=== PATIENT | female | born 1965 | race Caucasian/White ===

== ENCOUNTER → 2018-06-01 11:45 | Outpatient (CLI) | payer OTHER, SELFPAY ==
--- NOTE | 2018-06-01 11:52 | CT_ITS ---
We are attempting to reach Diomedes Gould MD to discuss findings. An addendum with communication details will be sent when the communication is complete. STUDY: CT BRAIN WITHOUT CONTRAST REASON FOR EXAM: Female, 52 years old. Delirium. Altered mental status. Fell 04/2018. RADIATION DOSAGE (If Supplied By Facility): CTDIvol = ( 44.99 ) mGy, DLP = ( 829.85 ) mGycm TECHNIQUE: Transaxial CT imaging of the brain was performed without administration of intravenous contrast material. Coronal and sagittal reconstructions were performed. Individualized dose optimization techniques were used for this CT. COMPARISON: None. FINDINGS: Normal soft tissue structures. Normal calvarium. Mixed hyper and hypodense subdural hematoma overlying the left cerebral hemisphere measuring approximately 2.1 cm in thickness. This is causing 9 mm xbad-um-grlme midline shift. There is minimal left-sided downward transtentorial uncal herniation. Normal ventricular size. Normal white matter tracts of the cerebral hemispheres. Normal basal ganglia and thalami. Normal brainstem. Normal cerebellum. No other areas of intracranial bleeding. There are no findings of an acute ischemic infarction. Normal visualized paranasal sinuses. CT/Brain/Head without Contrast IMPRESSION: 2.1 cm thick mixed hyperdense and hypodense subdural hematoma overlying the left cerebral hemisphere causing 9 mm fwuu-[id number]-[id number] midline shift and minimal left-sided downward transtentorial uncal herniation. Electronically Signed: Dung Mao MD at 12:15 EST , Service support ,
== END ==
PROVIDERS: Family Provider Family Medicine Geriatric Medicine; PCP Family Medicine Geriatric Medicine; Referring Provider Family Medicine Geriatric Medicine; Visit Provider Family Medicine Geriatric Medicine
DX: F05 Delirium due to known physiological condition (principal)
CPT/HCPCS: 70450

== ENCOUNTER 2018-06-01 12:05 | Emergency (ER) | payer OTHER, SELFPAY ==
[2018-06-01 12:06] VITALS: BP 187/109; PULSE 121; RESP 16; TEMP 37.2; O2SAT 100; BMI 28.5
--- NOTE | 2018-06-01 12:26 | ED.RN ---
PT REPORTS ABOUT 2 WEEKS AGO SX STARTED NOTIFICING SHE KNEW WHAT SHE WANTED TO DO BUT COULD DO IT WITH HER HAND COORDINATION.
--- NOTE | 2018-06-01 12:28 | RAD_ITS ---
STUDY: X-RAY CHEST REASON FOR EXAM: Female, 52 years old. Loss of consciousness. TECHNIQUE: Single AP portable view of the chest. COMPARISON: None. FINDINGS: EKG electrodes are seen. Elevation of the right hemidiaphragm. There is no demonstrated pleural abnormality. Normal size heart. Normal mediastinum and dominic. Normal visualized pulmonary arteries. Normal visualized aortic arch and descending thoracic aorta. Normal visualized thoracic spine. Normal visualized ribs, clavicles, and shoulders. There is no demonstrated abnormality of the visualized soft tissue structures of the upper abdomen. RAD/Chest 1 View (Portable) IMPRESSION: Normal x-ray examination of the chest. Electronically Signed: Gurpreet Servin MD at 13:10 EST , Service support ,
[2018-06-01 13:04] LABS: Absolute Lymphocyte Count 1.09 X10^3/ul (0.83-4.51); Absolute Neutrophil Count 4.7 X10^3/uL (2.0-7.7); Basophil# 0.01 X10^3/uL; Basophil% 0.2 % (0-1); Eosinophil# 0.03 X10^3/uL; Eosinophils% 0.5 % (0-5); Hematocrit 41.3 % (37-47); Hemoglobin 13.3 g/dl (12.0-15.0); Lymphocyte # 1.09 X10^3/ul (4.0); Lymphocyte % 17.4 % (19-41); Mean Corp Hgb Conc 32.2 g/gl (32-36); Mean Corpuscular Hgb 28.2 pg (27.0-32.0); Mean Corpuscular Volume 87.7 fL (81-99); Monocyte# 0.45 X10^3/uL; Monocyte% 7.2 % (0-10); Neutrophil # 4.66 X10^3/uL (2.7-7.7); Neutrophil % 74.4 % (47-70); Platelet Count 195 K/mm3 (150-450); RBC Distribution Width CV 14.4 % (11.6-14.6); RBC Distribution Width SD 46.1 fl (35.1-43.9); Red Blood Count 4.71 M/mm3 (4.2-5.4); White Blood Count 6.3 K/mm3 (4.4-11.0)
[2018-06-01 13:05] VITALS: BP 160/92; PULSE 108; RESP 16; O2SAT 100
[2018-06-01 13:06] LABS: POSITIVE COUNT NO; POSITIVE DIFFERENTIAL NO; POSITIVE MORPHOLOGY NO
[2018-06-01 13:09] LABS: International Normalized Ratio 0.9; Prothrombin Time (Protime)PT. 12.5 SECONDS (11.7-14.9)
[2018-06-01 13:10] LABS: Partial Thromboplast Time 36.4 Seconds (24.1-36.2)
[2018-06-01 13:18] LABS: ALB/GLOB Ratio 0.6 RATIO (0.9-2.4); AST(SGOT) 19 U/L (15-37); Alanine Aminotransfer ALT/SGPT 18 U/L (13-56); Albumin, Serum 2.8 g/dL (3.2-5.0); Alkaline Phosphatase 137 U/L (45-117); Anion Gap 8 (5-15); BUN 13 mg/dL (7-18); BUN/Creat Ratio 16.5 RATIO (10-20); Calcium,Total 8.4 mg/dL (8.5-10.1); Chloride 104 mmol/L (98-107); Creatinine, Serum 0.79 mg/dL (0.55-1.02); EST Glomerular Filtration Rate 81 mL/min (>60); Est Glom Filt Rate - Afr Amer 99 mL/min (>60); Estimated Creatinine Clearance 66.63 ml/min; Globulin 4.9 g/dL (2.2-4.2); Glucose 168 mg/dL (74-106); Potassium 3.8 mmol/L (3.5-5.1); Protein, Total 7.7 g/dL (6.4-8.2); Sodium Level 139 mmol/L (136-145)
[2018-06-01 13:59] LABS: Mucous, Urine 0 SEEN /hpf (<or=2+); Red Blood Cells-Urine 0 SEEN /hpf (0-5)
[2018-06-01 14:00] VITALS: BP 157/86; PULSE 104; RESP 16; O2SAT 100
[2018-06-01 14:06] LABS: Color, Urine Straw (Yellow); Glucose, Dipstick 1000 mg/dl (Normal); Ketone-Dipstick 5 mg/dl (Negative); Leukocyte Esterase-Dipstick 100 /ul (Negative); Nitrite-Dipstick Negative (Negative); Occult Blood-Urine 10 /ul (Negative); Protein-Dipstick Negative (Negative); Specific Gravity, Urine 1.005 (1.002-1.030); Urine Bilirubin Dipstick Negative (Negative); Urine Clarity Clear (Clear); Urine Urobilinogen Normal (Normal)
[2018-06-01 14:09] LABS: Internal QC Validated? YES +Cl - CLEAR BKGD; Pregnancy, Urine Negative Negative
[2018-06-01 14:11] VITALS: BP 157/86; PULSE 105; RESP 16; O2SAT 100
[2018-06-01 14:14] LABS: Bacteria RARE /hpf (None Seen); Squamous Epithelial Cells - UA 0-5 SEEN /hpf (5-10); White Blood Cells 0-5 SEEN /hpf (0-5)
--- NOTE | 2018-06-01 14:17 | ED.RN ---
JEREMIAH ZHU ARRIVED AND REPORT GIVEN.
--- NOTE | 2018-06-01 15:01 | ED.VISSUMM ---
- ER Visit Summary Date of Service: 06/01/18 Chief Complaint: Abnormal head CT History of Present Illness: The patient is a 52 F who fell in April but denies striking her head. Since that time she has been having headaches. Her blood sugars have been out of control and she is working with her doctor controlled him. Last week she was not doing well and was felt to have a UTI. She was seen back in the office today. She is having ataxia. She had an outpatient head CT that demonstrated a 2.1 cm thick left subdural about 1 cm of jxip-ua-exzyk shift. There is mild amount of herniation. Patient was brought to the emergency department. She is not on blood thinners Physical Examination: Afebrile vital signs are stable Gen: Well-nourished well-developed Head: Normocephalic atraumatic Eyes: Perrl EOMI ENT: TMs clear no rhinorrhea moist mucous membranes Neck: Supple no lymphadenopathy no JVD nontender CVS: Regular rate rhythm no murmurs normal S1-S2 Respiratory: No distress clear to auscultation bilaterally chest nontender Abdomen: Soft nontender nondistended normal bowel sounds no masses Back: Nontender Extremity: Nontender no edema Skin: Normal color no rash Neuro: alert orientated ?3 CN II-XII intact normal strength sensation reflexes there is a slight abnormal finger to nose test. Psych: Anxious and tearful Test Results: Basic blood work including coags were obtained. Emergency Department Course and Treatment: Patient requested transfer to [facility]. I spoke with Dr. Jeronimo in the emergency department has requested that I speak with neurosurgeon Dr. Darden. They have accepted the patient in transfer. Impression: 1. Left subdural hematoma with shift 2. Critical care time 35 minutes This note was generated with [employer] dictation software. It may contain incorrect words, spelling, and punctuation that were not noted in review of the chart prior to signing ED Disposition - Plan for ED Patient: Disposition: [facility] Chief Complaint: Alt LOC Referrals: Diomedes Gould Chi, MD [Primary Care Provider] -
== END 2018-06-01 14:30 | disposition short-term general hospital (02) ==
LOC: ED 12:50
PROVIDERS: Emergency Provider Emergency Medicine; Family Provider Family Medicine Geriatric Medicine; PCP Family Medicine Geriatric Medicine
DX: I62.00 Nontraumatic subdural hemorrhage, unspecified (principal); R27.0 Ataxia, unspecified; E11.9 Type 2 diabetes mellitus without complications; I10 Essential (primary) hypertension; E78.00 Pure hypercholesterolemia, unspecified; F32.9 Major depressive disorder, single episode, unspecified; Z79.4 Long term (current) use of insulin; Z79.899 Other long term (current) drug therapy
CPT/HCPCS: 71045; 80053; 81001; 81025; 85025; 85610; 85730; 99285; A4216

== ENCOUNTER → 2018-06-01 12:08 | Outpatient (CLI) | payer OTHER, SELFPAY ==
[2018-06-01 12:31] LABS: Absolute Lymphocyte Count 1.01 X10^3/ul (0.83-4.51); Absolute Neutrophil Count 5.6 X10^3/uL (2.0-7.7); Basophil# 0.01 X10^3/uL; Basophil% 0.1 % (0-1); Eosinophil# 0.04 X10^3/uL; Eosinophils% 0.6 % (0-5); Hematocrit 45.8 % (37-47); Hemoglobin 14.7 g/dl (12.0-15.0); Lymphocyte # 1.01 X10^3/ul (4.0); Lymphocyte % 14.1 % (19-41); Mean Corp Hgb Conc 32.1 g/gl (32-36); Mean Corpuscular Hgb 28.4 pg (27.0-32.0); Mean Corpuscular Volume 88.6 fL (81-99); Mean Platelet Vol. 9.7 fl (6.2-12.0); Monocyte# 0.52 X10^3/uL; Monocyte% 7.3 % (0-10); Neutrophil # 5.55 X10^3/uL (2.7-7.7); Neutrophil % 77.8 % (47-70); Platelet Count 193 K/mm3 (150-450); RBC Distribution Width CV 14.4 % (11.6-14.6); RBC Distribution Width SD 46.9 fl (35.1-43.9); Red Blood Count 5.17 M/mm3 (4.2-5.4); White Blood Count 7.1 K/mm3 (4.4-11.0)
[2018-06-01 12:38] LABS: POSITIVE COUNT NO; POSITIVE DIFFERENTIAL NO; POSITIVE MORPHOLOGY NO
[2018-06-01 12:51] LABS: ALB/GLOB Ratio 0.7 RATIO (0.9-2.4); AST(SGOT) 19 U/L (15-37); Alanine Aminotransfer ALT/SGPT 22 U/L (13-56); Albumin, Serum 3.3 g/dL (3.2-5.0); Alkaline Phosphatase 159 U/L (45-117); Anion Gap 13 (5-15); BUN 16 mg/dL (7-18); BUN/Creat Ratio 22.2 RATIO (10-20); Calcium,Total 9.2 mg/dL (8.5-10.1); Chloride 102 mmol/L (98-107); Creatinine, Serum 0.72 mg/dL (0.55-1.02); EST Glomerular Filtration Rate 90 mL/min (>60); Est Glom Filt Rate - Afr Amer 109 mL/min (>60); Globulin 4.9 g/dL (2.2-4.2); Glucose 118 mg/dL (74-106); Potassium 4.2 mmol/L (3.5-5.1); Protein, Total 8.2 g/dL (6.4-8.2); Sodium Level 139 mmol/L (136-145); Thyroid Stim Hormone (TSH) 0.67 uIU/mL (0.358-3.74)
== END ==
PROVIDERS: Visit Provider Family Medicine Geriatric Medicine
DX: E11.9 Type 2 diabetes mellitus without complications (principal); I10 Essential (primary) hypertension; N39.0 Urinary tract infection, site not specified
CPT/HCPCS: 36415; 80053; 84443; 85025; 87086; 87088

== ENCOUNTER → 2018-07-16 12:51 | Outpatient (CLI) | payer OTHER, SELFPAY ==
[2018-07-16 13:45] LABS: Absolute Lymphocyte Count 1.42 X10^3/ul (0.83-4.51); Absolute Neutrophil Count 3.7 X10^3/uL (2.0-7.7); Basophil# 0.02 X10^3/uL; Basophil% 0.3 % (0-1); Eosinophils% 3.5 % (0-5); Hemoglobin 14.1 g/dl (12.0-15.0); Lymphocyte # 1.42 X10^3/ul (4.0); Lymphocyte % 24.8 % (19-41); Mean Corpuscular Hgb 27.9 pg (27.0-32.0); Mean Platelet Vol. 9.7 fl (6.2-12.0); Monocyte# 0.36 X10^3/uL; Monocyte% 6.3 % (0-10); Neutrophil # 3.69 X10^3/uL (2.7-7.7); Neutrophil % 64.6 % (47-70); POSITIVE COUNT NO; POSITIVE DIFFERENTIAL NO; POSITIVE MORPHOLOGY NO; Platelet Count 218 K/mm3 (150-450); RBC Distribution Width CV 14.8 % (11.6-14.6); RBC Distribution Width SD 46.9 fl (35.1-43.9); Red Blood Count 5.06 M/mm3 (4.2-5.4); White Blood Count 5.7 K/mm3 (4.4-11.0)
[2018-07-16 14:22] LABS: ALB/GLOB Ratio 0.7 RATIO (0.9-2.4); AST(SGOT) 15 U/L (15-37); Alanine Aminotransfer ALT/SGPT 21 U/L (13-56); Albumin, Serum 3.4 g/dL (3.2-5.0); Alkaline Phosphatase 145 U/L (45-117); Anion Gap 8 (5-15); BUN 24 mg/dL (7-18); BUN/Creat Ratio 26.6 RATIO (10-20); Chloride 101 mmol/L (98-107); Cholesterol 150 mg/dL (200); EST Glomerular Filtration Rate 70 mL/min (>60); Est Glom Filt Rate - Afr Amer 84 mL/min (>60); Globulin 4.8 g/dL (2.2-4.2); Glucose 109 mg/dL (74-106); High Density Lipoprotein 43 mg/dL; Protein, Total 8.2 g/dL (6.4-8.2); Sodium Level 138 mmol/L (136-145); Triglycerides 162 mg/dL; Very Low Density Lipoprotein 32 mg/dL (5-40)
== END ==
PROVIDERS: Family Provider Family Medicine Geriatric Medicine; PCP Family Medicine Geriatric Medicine; Visit Provider Family Medicine Geriatric Medicine
DX: E11.9 Type 2 diabetes mellitus without complications (principal); E78.49 Other hyperlipidemia; R53.83 Other fatigue
CPT/HCPCS: 36415; 80053; 80061; 84443; 85025

== ENCOUNTER → 2018-07-16 13:30 | Outpatient (CLI) | payer OTHER, SELFPAY ==
--- NOTE | 2018-07-16 13:34 | CT_ITS ---
STUDY: CT BRAIN WITHOUT CONTRAST REASON FOR EXAM: Female, 53 years old. History of closed head injury. History of subdural hematoma. RADIATION DOSAGE (If Supplied By Facility): CTDIvol = ( 44.99 ) mGy, DLP = ( 829.85 ) mGycm TECHNIQUE: Transaxial CT imaging of the brain was performed without administration of intravenous contrast material. Individualized dose optimization techniques were used for this CT. COMPARISON: Comparison is made with prior study dated June 01, 2018. FINDINGS: Normal soft tissue structures. The patient is status post left parietal craniotomy and there is drainage of the left subdural hematoma overlying the left frontal, parietal and occipital lobes. There is mild cerebral atrophy with widening of the extra-axial spaces and ventricular dilatation. Normal white matter tracts of the cerebral hemispheres. Normal basal ganglia and thalami. Normal brainstem. Normal cerebellum. There is no intracranial hemorrhage. There are no findings of an acute ischemic infarction. Normal visualized paranasal sinuses. CT/Brain/Head without Contrast IMPRESSION: Status post left parietal craniotomy with drainage of the left subdural hematoma. No acute abnormality is seen at this time. Electronically Signed: Gurpreet Servin, at 14:29 EDT , Service support ,
== END ==
PROVIDERS: Family Provider Family Medicine Geriatric Medicine; PCP Family Medicine Geriatric Medicine; Referring Provider Family Medicine Geriatric Medicine; Visit Provider Family Medicine Geriatric Medicine
DX: S09.90XA Unspecified injury of head, initial encounter (principal)
CPT/HCPCS: 70450

== ENCOUNTER → 2018-08-05 12:52 | Outpatient (CLI) | payer OTHER, SELFPAY ==
--- NOTE | 2018-08-05 12:55 | RAD_ITS ---
STUDY: X-RAY CHEST REASON FOR EXAM: Female, 53 years old. History of possible aspiration. TECHNIQUE: PA and lateral views of the chest. COMPARISON: Comparison is made with prior study dated October 30, 2018. FINDINGS: There is evidence of a focal infiltration in the posterior medial segment of the right lower lobe. Elevation of the right hemidiaphragm. There is no demonstrated pleural abnormality. Normal size heart. Normal mediastinum and dominic. Normal visualized pulmonary arteries. Normal visualized aortic arch and descending thoracic aorta. There is demineralization of the osseous structures. Normal visualized ribs, clavicles, and shoulders. There is no demonstrated abnormality of the visualized soft tissue structures of the upper abdomen. RAD/Chest PA and Lateral IMPRESSION: Focal right lower lobe infiltrate. Electronically Signed: Gurpreet Servin, at 13:49 EDT , Service support ,
[2018-08-05 17:41] LABS: Absolute Lymphocyte Count 1.33 X10^3/ul (0.83-4.51); Absolute Neutrophil Count 12.7 X10^3/uL (2.0-7.7); Basophil# 0.01 X10^3/uL; Basophil% 0.1 % (0-1); Eosinophil# 0.02 X10^3/uL; Eosinophils% 0.1 % (0-5); Hematocrit 40.5 % (37-47); Hemoglobin 13.2 g/dl (12.0-15.0); Lymphocyte # 1.33 X10^3/ul (4.0); Lymphocyte % 8.7 % (19-41); Mean Corp Hgb Conc 32.6 g/gl (32-36); Mean Corpuscular Hgb 27.4 pg (27.0-32.0); Mean Platelet Vol. 10.1 fl (6.2-12.0); Monocyte# 1.23 X10^3/uL; Neutrophil % 82.8 % (47-70); Platelet Count 164 K/mm3 (150-450); RBC Distribution Width CV 15.2 % (11.6-14.6); RBC Distribution Width SD 46.1 fl (35.1-43.9); Red Blood Count 4.82 M/mm3 (4.2-5.4); White Blood Count 15.3 K/mm3 (4.4-11.0)
[2018-08-05 17:42] LABS: POSITIVE COUNT NO; POSITIVE DIFFERENTIAL NO; POSITIVE MORPHOLOGY NO
[2018-08-05 18:15] LABS: Anion Gap 9 (5-15); BUN 17 mg/dL (7-18); BUN/Creat Ratio 14.3 RATIO (10-20); Calcium,Total 8.9 mg/dL (8.5-10.1); Chloride 95 mmol/L (98-107); Creatinine, Serum 1.19 mg/dL (0.55-1.02); EST Glomerular Filtration Rate 51 mL/min (>60); Est Glom Filt Rate - Afr Amer 61 mL/min (>60); Glucose 496 mg/dL (74-106); Potassium 4.2 mmol/L (3.5-5.1); Sodium Level 130 mmol/L (136-145)
== END ==
PROVIDERS: Family Provider Family Medicine Geriatric Medicine; PCP Family Medicine Geriatric Medicine; Referring Provider Family Medicine Geriatric Medicine; Visit Provider Family Medicine Geriatric Medicine
DX: I10 Essential (primary) hypertension (principal); T17.908A Unspecified foreign body in respiratory tract, part unspecified causing other injury, initial encounter
CPT/HCPCS: 36415; 71046; 80048; 85025

== ENCOUNTER → 2018-11-23 | Outpatient (CLI) | payer OTHER, SELFPAY ==
[2018-11-23 17:13] LABS: Absolute Lymphocyte Count 1.83 X10^3/uL (0.83-4.51); Absolute Neutrophil Count 4.6 X10^3/uL (2.0-7.7); Basophil# 0.04 X10^3/uL; Basophil% 0.6 % (0-1); Eosinophil# 0.19 X10^3/uL; Eosinophils% 2.7 % (0-5); Hemoglobin 13.5 g/dL (12.0-15.0); Lymphocyte # 1.83 X10^3/ul (4.0); Lymphocyte % 25.8 % (19-41); Mean Corp Hgb Conc 32.1 g/dL (32-36); Mean Corpuscular Hgb 27.7 pg (27.0-32.0); Mean Corpuscular Volume 86.1 fL (81-99); Monocyte# 0.43 X10^3/uL; Monocyte% 6.1 % (0-10); NRBC Flagged by Analyzer 0 % (0-5); Neutrophil # 4.57 X10^3/uL (2.7-7.7); Neutrophil % 64.4 % (47-70); Platelet Count 218 K/mm3 (150-450); RBC Distribution Width CV 14.7 % (11.6-14.6); RBC Distribution Width SD 45.4 fl (35.1-43.9); Red Blood Count 4.88 M/mm3 (4.2-5.4); White Blood Count 7.1 K/mm3 (4.4-11.0)
[2018-11-23 17:55] LABS: ALB/GLOB Ratio 0.7 RATIO (0.9-2.4); AST(SGOT) 15 U/L (15-37); Alanine Aminotransfer ALT/SGPT 22 U/L (13-56); Albumin, Serum 3.2 g/dL (3.2-5.0); Alkaline Phosphatase 129 U/L (45-117); Anion Gap 11 (5-15); BUN 25 mg/dL (7-18); BUN/Creat Ratio 23.6 RATIO (10-20); Calcium,Total 8.8 mg/dL (8.5-10.1); Chloride 103 mmol/L (98-107); Creatinine, Serum 1.06 mg/dL (0.55-1.02); EST Glomerular Filtration Rate 58 mL/min (>60); Est Glom Filt Rate - Afr Amer 70 mL/min (>60); Globulin 4.4 g/dL (2.2-4.2); Glucose 197 mg/dL (74-106); Potassium 4.4 mmol/L (3.5-5.1); Protein, Total 7.6 g/dL (6.4-8.2); Sodium Level 138 mmol/L (136-145); Thyroid Stim Hormone (TSH) 1.28 uIU/mL (0.358-3.74)
== END | disposition home or self-care (01) ==
LOC: POLAB3 12:24
PROVIDERS: Family Provider Family Medicine Geriatric Medicine; PCP Family Medicine Geriatric Medicine; Visit Provider Family Medicine Geriatric Medicine
DX: E11.9 Type 2 diabetes mellitus without complications (principal); I10 Essential (primary) hypertension
CPT/HCPCS: 36415; 80053; 84443; 85025

== ENCOUNTER → 2019-02-25 | Outpatient (CLI) | payer OTHER, SELFPAY | END | disposition home or self-care (01) | LOC: POLAB3 08:47 → LAB.FUTURE 12:26 | PROVIDERS: Family Provider Family Medicine Geriatric Medicine; PCP Family Medicine Geriatric Medicine; Referring Provider Family Medicine Geriatric Medicine; Visit Provider Family Medicine Geriatric Medicine | DX: E11.9 Type 2 diabetes mellitus without complications (principal); I10 Essential (primary) hypertension ==

== ENCOUNTER → 2019-05-27 09:26 | Outpatient (CLI) | payer OTHER, SELFPAY ==
[2019-05-27 12:16] LABS: Absolute Lymphocyte Count 1.03 X10^3/uL (0.83-4.51); Absolute Neutrophil Count 3.5 X10^3/uL (2.0-7.7); Basophil# 0.02 X10^3/uL; Basophil% 0.4 % (0-1); Eosinophil# 0.15 X10^3/uL; Eosinophils% 2.9 % (0-5); Hematocrit 40.9 % (37-47); Hemoglobin 12.8 g/dL (12.0-15.0); Lymphocyte # 1.03 X10^3/ul (4.0); Lymphocyte % 20.2 % (19-41); Mean Corp Hgb Conc 31.3 g/dL (32-36); Mean Corpuscular Hgb 27.6 pg (27.0-32.0); Mean Corpuscular Volume 88.1 fL (81-99); Mean Platelet Vol. 10.1 fl (6.2-12.0); Monocyte% 7.9 % (0-10); NRBC Flagged by Analyzer 0 % (0-5); Neutrophil # 3.47 X10^3/uL (2.7-7.7); Neutrophil % 68.2 % (47-70); Platelet Count 197 K/mm3 (150-450); RBC Distribution Width CV 15.2 % (11.6-14.6); RBC Distribution Width SD 48.1 fl (35.1-43.9); Red Blood Count 4.64 M/mm3 (4.2-5.4); White Blood Count 5.1 K/mm3 (4.4-11.0)
[2019-05-27 12:42] LABS: ALB/GLOB Ratio 0.7 RATIO (0.9-2.4); AST(SGOT) 17 U/L (15-37); Alanine Aminotransfer ALT/SGPT 25 U/L (13-56); Alkaline Phosphatase 115 U/L (45-117); Anion Gap 6 (5-15); BUN 20 mg/dL (7-18); BUN/Creat Ratio 21.3 RATIO (10-20); Calcium,Total 8.8 mg/dL (8.5-10.1); Chloride 104 mmol/L (98-107); Creatinine, Serum 0.94 mg/dL (0.55-1.02); EST Glomerular Filtration Rate 66 mL/min (>60); Est Glom Filt Rate - Afr Amer 80 mL/min (>60); Globulin 4.2 g/dL (2.2-4.2); Glucose 254 mg/dL (74-106); Potassium 3.9 mmol/L (3.5-5.1); Protein, Total 7.2 g/dL (6.4-8.2); Sodium Level 138 mmol/L (136-145); Thyroid Stim Hormone (TSH) 1.71 uIU/mL (0.358-3.74)
== END ==
PROVIDERS: PCP Family Medicine Geriatric Medicine; Visit Provider Family Medicine Geriatric Medicine
DX: E11.9 Type 2 diabetes mellitus without complications (principal); I10 Essential (primary) hypertension
CPT/HCPCS: 36415; 80053; 84443; 85025

== ENCOUNTER → 2020-04-05 | Outpatient (CLI) | payer OTHER, SELFPAY ==
[2020-04-05 12:44] LABS: Absolute Lymphocyte Count 1.44 X10^3/uL (0.83-4.51); Absolute Neutrophil Count 5.3 X10^3/uL (2.0-7.7); Basophil# 0.03 X10^3/uL; Basophil% 0.4 % (0-1); Eosinophil# 0.14 X10^3/uL; Eosinophils% 1.9 % (0-5); Hematocrit 42.7 % (37-47); Hemoglobin 13.4 g/dL (12.0-15.0); Lymphocyte # 1.44 X10^3/ul (4.0); Lymphocyte % 19.5 % (19-41); Mean Corp Hgb Conc 31.4 g/dL (32-36); Mean Corpuscular Hgb 27.7 pg (27.0-32.0); Mean Corpuscular Volume 88.4 fL (81-99); Mean Platelet Vol. 9.8 fl (6.2-12.0); Monocyte# 0.46 X10^3/uL; Monocyte% 6.2 % (0-10); NRBC Flagged by Analyzer 0 % (0-5); Neutrophil # 5.27 X10^3/uL (2.7-7.7); Neutrophil % 71.6 % (47-70); Platelet Count 227 K/mm3 (150-450); RBC Distribution Width CV 14.7 % (11.6-14.6); RBC Distribution Width SD 47.3 fl (35.1-43.9); Red Blood Count 4.83 M/mm3 (4.2-5.4); White Blood Count 7.4 K/mm3 (4.4-11.0)
[2020-04-05 13:22] LABS: ALB/GLOB Ratio 0.7 RATIO (0.9-2.4); AST(SGOT) 18 U/L (15-37); Alanine Aminotransfer ALT/SGPT 26 U/L (13-56); Albumin, Serum 3.4 g/dL (3.2-5.0); Alkaline Phosphatase 157 U/L (45-117); Anion Gap 2 (5-15); BUN 31 mg/dL (7-18); BUN/Creat Ratio 26.3 RATIO (10-20); Calcium,Total 9.1 mg/dL (8.5-10.1); Chloride 108 mmol/L (98-107); Creatinine, Serum 1.18 mg/dL (0.55-1.02); EST Glomerular Filtration Rate 51 mL/min (>60); Est Glom Filt Rate - Afr Amer 61 mL/min (>60); Globulin 4.6 g/dL (2.2-4.2); Glucose 175 mg/dL (74-106); Potassium 4.9 mmol/L (3.5-5.1); Sodium Level 138 mmol/L (136-145); Thyroid Stim Hormone (TSH) 1.25 uIU/mL (0.358-3.74)
== END | disposition home or self-care (01) ==
LOC: POLAB3 12:24
PROVIDERS: PCP Family Medicine Geriatric Medicine; Visit Provider Family Medicine Geriatric Medicine
DX: E11.9 Type 2 diabetes mellitus without complications (principal); I10 Essential (primary) hypertension
CPT/HCPCS: 36415; 80053; 84443; 85025

== ENCOUNTER → 2020-05-11 | Outpatient (CLI) | payer OTHER, SELFPAY | END | disposition home or self-care (01) | LOC: LABSPEC 09:37 | PROVIDERS: PCP Family Medicine Geriatric Medicine; Visit Provider Family Medicine Geriatric Medicine | DX: R06.89 Other abnormalities of breathing (principal) | CPT/HCPCS: 87426 ==

== ENCOUNTER 2020-05-24 11:37 | Outpatient (RCR) | payer OTHER, SELFPAY | END 2020-05-24 23:59 | LOC: IMMUN 11:37 | PROVIDERS: PCP Family Medicine Geriatric Medicine; Visit Provider Family Medicine | DX: Z23 Encounter for immunization (principal) | CPT/HCPCS: 0011A; 0012A; 91301 ==

== ENCOUNTER → 2020-07-02 10:13 | Outpatient (CLI) | payer OTHER, SELFPAY ==
[2020-07-02 12:36] LABS: Absolute Lymphocyte Count 1.71 X10^3/uL (0.83-4.51); Absolute Neutrophil Count 5.8 X10^3/uL (2.0-7.7); Basophil# 0.02 X10^3/uL; Basophil% 0.2 % (0-1); Eosinophil# 0.13 X10^3/uL; Eosinophils% 1.6 % (0-5); Hematocrit 43.2 % (37-47); Hemoglobin 13.5 g/dL (12.0-15.0); Lymphocyte # 1.71 X10^3/ul (4.0); Lymphocyte % 20.7 % (19-41); Mean Corp Hgb Conc 31.3 g/dL (32-36); Mean Corpuscular Hgb 27.8 pg (27.0-32.0); Mean Corpuscular Volume 88.9 fL (81-99); Mean Platelet Vol. 10.2 fl (6.2-12.0); Monocyte# 0.57 X10^3/uL; Monocyte% 6.9 % (0-10); NRBC Flagged by Analyzer 0 % (0-5); Neutrophil # 5.79 X10^3/uL (2.7-7.7); Neutrophil % 70.2 % (47-70); Platelet Count 279 K/mm3 (150-450); RBC Distribution Width CV 14.1 % (11.6-14.6); RBC Distribution Width SD 44.9 fl (35.1-43.9); Red Blood Count 4.86 M/mm3 (4.2-5.4); White Blood Count 8.3 K/mm3 (4.4-11.0)
[2020-07-02 13:17] LABS: ALB/GLOB Ratio 0.8 RATIO (0.9-2.4); AST(SGOT) 17 U/L (15-37); Alanine Aminotransfer ALT/SGPT 28 U/L (13-56); Albumin, Serum 3.6 g/dL (3.2-5.0); Alkaline Phosphatase 166 U/L (45-117); Anion Gap 7 (5-15); BUN 27 mg/dL (7-18); BUN/Creat Ratio 24.8 RATIO (10-20); Calcium,Total 9.4 mg/dL (8.5-10.1); Chloride 103 mmol/L (98-107); Creatinine, Serum 1.09 mg/dL (0.55-1.02); EST Glomerular Filtration Rate 56 mL/min (>60); Est Glom Filt Rate - Afr Amer 67 mL/min (>60); Globulin 4.8 g/dL (2.2-4.2); Glucose 189 mg/dL (74-106); Potassium 4.6 mmol/L (3.5-5.1); Protein, Total 8.4 g/dL (6.4-8.2); Sodium Level 137 mmol/L (136-145)
== END ==
PROVIDERS: PCP Family Medicine Geriatric Medicine; Visit Provider Family Medicine Geriatric Medicine
DX: E11.9 Type 2 diabetes mellitus without complications (principal); I10 Essential (primary) hypertension
CPT/HCPCS: 36415; 80053; 84443; 85025

== ENCOUNTER → 2020-07-09 | Outpatient (CLI) | payer OTHER, SELFPAY | END | disposition home or self-care (01) | LOC: LABSPEC 14:25 | PROVIDERS: PCP Family Medicine Geriatric Medicine; Referring Provider Family Medicine Geriatric Medicine; Visit Provider Family Medicine Geriatric Medicine | DX: R68.83 Chills (without fever) (principal) | CPT/HCPCS: 87635; C9803; U0002 ==

== ENCOUNTER → 2020-10-02 09:30 | Outpatient (CLI) | payer OTHER, SELFPAY ==
[2020-10-02 12:32] LABS: Absolute Lymphocyte Count 1.56 X10^3/uL (0.83-4.51); Basophil# 0.03 X10^3/uL; Basophil% 0.4 % (0-1); Eosinophil# 0.12 X10^3/uL; Eosinophils% 1.5 % (0-5); Hematocrit 43.7 % (37-47); Hemoglobin 13.9 g/dL (12.0-15.0); Lymphocyte # 1.56 X10^3/ul (0.83-4.51); Mean Corp Hgb Conc 31.8 g/dL (32-36); Mean Corpuscular Hgb 27.9 pg (27.0-32.0); Mean Corpuscular Volume 87.8 fL (81-99); Mean Platelet Vol. 10.3 fl (6.2-12.0); Monocyte# 0.44 X10^3/uL; Monocyte% 5.4 % (0-10); NRBC Flagged by Analyzer 0 % (0-5); Neutrophil # 6.01 X10^3/uL (2.7-7.7); Neutrophil % 73.3 % (47-70); Platelet Count 232 K/mm3 (150-450); RBC Distribution Width CV 15.7 % (11.6-14.6); RBC Distribution Width SD 47.4 fl (35.1-43.9); Red Blood Count 4.98 M/mm3 (4.2-5.4); White Blood Count 8.2 K/mm3 (4.4-11.0)
[2020-10-02 13:02] LABS: ALB/GLOB Ratio 0.7 RATIO (0.9-2.4); AST(SGOT) 18 U/L (15-37); Alanine Aminotransfer ALT/SGPT 24 U/L (13-56); Albumin, Serum 3.3 g/dL (3.2-5.0); Alkaline Phosphatase 173 U/L (45-117); Anion Gap 9 (5-15); BUN 23 mg/dL (7-18); BUN/Creat Ratio 19.5 RATIO (10-20); Calcium,Total 9.2 mg/dL (8.5-10.1); Chloride 100 mmol/L (98-107); Creatinine, Serum 1.18 mg/dL (0.55-1.02); EST Glomerular Filtration Rate 51 mL/min (>60); Est Glom Filt Rate - Afr Amer 61 mL/min (>60); Globulin 4.8 g/dL (2.2-4.2); Glucose 281 mg/dL (74-106); Potassium 4.6 mmol/L (3.5-5.1); Protein, Total 8.1 g/dL (6.4-8.2); Sodium Level 136 mmol/L (136-145); Thyroid Stim Hormone (TSH) 1.37 uIU/mL (0.358-3.74)
== END ==
PROVIDERS: PCP Family Medicine Geriatric Medicine; Visit Provider Family Medicine Geriatric Medicine
DX: E11.65 Type 2 diabetes mellitus with hyperglycemia (principal); I10 Essential (primary) hypertension
CPT/HCPCS: 36415; 80053; 84443; 85025

== ENCOUNTER → 2020-12-12 08:47 | Outpatient (CLI) | payer OTHER, SELFPAY | PROVIDERS: PCP Family Medicine Geriatric Medicine; Visit Provider Family Medicine Geriatric Medicine | DX: E11.9 Type 2 diabetes mellitus without complications (principal) | CPT/HCPCS: 36415; 82533 ==

== ENCOUNTER → 2020-12-22 | Outpatient (CLI) | payer OTHER, SELFPAY ==
[2021-01-03 20:51] LABS: Cortisol, Free 24Ur 36 ug/24 hr (6-42); Cortisol, Urinary Free 18 ug/L (Undefined)
== END | disposition home or self-care (01) ==
LOC: LABSPEC 07:30
PROVIDERS: PCP Family Medicine Geriatric Medicine; Referring Provider Family Medicine Geriatric Medicine; Visit Provider Family Medicine Geriatric Medicine
DX: E11.9 Type 2 diabetes mellitus without complications (principal)
CPT/HCPCS: 81050; 82530

== ENCOUNTER → 2021-02-23 07:20 | Outpatient (CLI) | payer OTHER, SELFPAY | PROVIDERS: PCP Family Medicine Geriatric Medicine; Referring Provider Family Medicine Geriatric Medicine; Visit Provider Family Medicine Geriatric Medicine | DX: E11.9 Type 2 diabetes mellitus without complications (principal) | CPT/HCPCS: 36415; 82533 ==

== ENCOUNTER → 2021-03-13 14:26 | Outpatient (CLI) | payer OTHER, SELFPAY ==
[2021-03-15 12:08] LABS: DHEA Sulfate 93.1 ug/dL (41.2-243.7)
[2021-03-15 14:06] LABS: Adrenocorticotropic Hormone 32.8 pg/mL (7.2-63.3)
== END ==
PROVIDERS: PCP Family Medicine Geriatric Medicine; Visit Provider Family Medicine Geriatric Medicine
DX: E11.9 Type 2 diabetes mellitus without complications (principal)
CPT/HCPCS: 36415; 82024; 82627; 82626

== ENCOUNTER → 2021-04-17 09:17 | Outpatient (CLI) | payer OTHER, SELFPAY ==
[2021-04-17 11:02] LABS: Absolute Lymphocyte Count 0.96 X10^3/uL (0.83-4.51); Absolute Neutrophil Count 5.3 X10^3/uL (2.0-7.7); Basophil# 0.02 X10^3/uL; Basophil% 0.3 % (0-1); Eosinophil# 0.14 X10^3/uL; Hematocrit 41.1 % (37-47); Hemoglobin 13.4 g/dL (12.0-15.0); Lymphocyte # 0.96 X10^3/ul (0.83-4.51); Lymphocyte % 13.9 % (19-41); Mean Corp Hgb Conc 32.6 g/dL (32-36); Mean Corpuscular Hgb 28.8 pg (27.0-32.0); Mean Corpuscular Volume 88.2 fL (81-99); Monocyte# 0.43 X10^3/uL; Monocyte% 6.2 % (0-10); NRBC Flagged by Analyzer 0 % (0-5); Neutrophil # 5.32 X10^3/uL (2.7-7.7); Neutrophil % 77.3 % (47-70); Platelet Count 204 K/mm3 (150-450); RBC Distribution Width CV 14.6 % (11.6-14.6); RBC Distribution Width SD 46.4 fl (35.1-43.9); Red Blood Count 4.66 M/mm3 (4.2-5.4); White Blood Count 6.9 K/mm3 (4.4-11.0)
[2021-04-17 11:26] LABS: ALB/GLOB Ratio 0.6 RATIO (0.9-2.4); AST(SGOT) 10 U/L (15-37); Alanine Aminotransfer ALT/SGPT 23 U/L (13-56); Albumin, Serum 3.1 g/dL (3.2-5.0); Alkaline Phosphatase 142 U/L (45-117); Anion Gap 9 (5-15); BUN 25 mg/dL (7-18); BUN/Creat Ratio 23.6 RATIO (10-20); Chloride 100 mmol/L (98-107); Creatinine, Serum 1.06 mg/dL (0.55-1.02); EST Glomerular Filtration Rate 57 mL/min (>60); Est Glom Filt Rate - Afr Amer 69 mL/min (>60); Glucose 313 mg/dL (74-106); Potassium 4.3 mmol/L (3.5-5.1); Protein, Total 8.1 g/dL (6.4-8.2); Sodium Level 138 mmol/L (136-145); Thyroid Stim Hormone (TSH) 1.49 uIU/mL (0.358-3.74)
== END ==
PROVIDERS: PCP Family Medicine Geriatric Medicine; Visit Provider Family Medicine Geriatric Medicine
DX: I10 Essential (primary) hypertension (principal)
CPT/HCPCS: 36415; 80053; 84443; 85025

== ENCOUNTER → 2021-09-03 | Outpatient (CLI) | payer OTHER, SELFPAY | END | disposition home or self-care (01) | PROVIDERS: PCP Family Medicine Geriatric Medicine; Referring Provider Family Medicine Geriatric Medicine; Visit Provider Family Medicine Geriatric Medicine | DX: U07.1 COVID-19 (principal); R68.83 Chills (without fever) | CPT/HCPCS: 87635; 87804; 87807; C9803; U0003; U0005 ==

== ENCOUNTER → 2021-09-13 | Outpatient (CLI) | payer OTHER, SELFPAY ==
[2021-09-13 12:37] LABS: Absolute Neutrophil Count 4.8 X10^3/uL (2.0-7.7); Basophil# 0.03 X10^3/uL; Basophil% 0.4 % (0-1); Eosinophil# 0.06 X10^3/uL; Eosinophils% 0.8 % (0-5); Hematocrit 42.2 % (37-47); Hemoglobin 14.4 g/dL (12.0-15.0); Lymphocyte % 24.6 % (19-41); Mean Corp Hgb Conc 34.1 g/dL (32-36); Mean Corpuscular Volume 85.1 fL (81-99); Mean Platelet Vol. 10.3 fl (6.2-12.0); Monocyte# 0.54 X10^3/uL; Monocyte% 7.4 % (0-10); NRBC Flagged by Analyzer 0 % (0-5); Neutrophil # 4.81 X10^3/uL (2.7-7.7); Neutrophil % 65.8 % (47-70); Platelet Count 270 K/mm3 (150-450); RBC Distribution Width SD 42.1 fl (35.1-43.9); Red Blood Count 4.96 M/mm3 (4.2-5.4); White Blood Count 7.3 K/mm3 (4.4-11.0)
[2021-09-13 13:01] LABS: ALB/GLOB Ratio 0.7 RATIO (0.9-2.4); AST(SGOT) 13 U/L (15-37); Alanine Aminotransfer ALT/SGPT 28 U/L (13-56); Albumin, Serum 3.1 g/dL (3.2-5.0); Alkaline Phosphatase 111 U/L (45-117); Anion Gap 6 (5-15); BUN 38 mg/dL (7-18); BUN/Creat Ratio 28.6 RATIO (10-20); Calcium,Total 9.3 mg/dL (8.5-10.1); Chloride 99 mmol/L (98-107); Cholesterol 237 mg/dL (200); Creatinine, Serum 1.33 mg/dL (0.55-1.02); EST Glomerular Filtration Rate 44 mL/min (>60); Est Glom Filt Rate - Afr Amer 53 mL/min (>60); Globulin 4.5 g/dL (2.2-4.2); Glucose 422 mg/dL (74-106); Hemoglobin A1c 11.7 % (3.8-5.6); High Density Lipoprotein 32 mg/dL; Potassium 4.9 mmol/L (3.5-5.1); Protein, Total 7.6 g/dL (6.4-8.2); Sodium Level 131 mmol/L (136-145); Thyroid Stim Hormone (TSH) 1.22 uIU/mL (0.358-3.74); Triglycerides 760 mg/dL
== END | disposition home or self-care (01) ==
LOC: POLAB3 08:38
PROVIDERS: PCP Family Medicine Geriatric Medicine; Visit Provider Family Medicine Geriatric Medicine
DX: I10 Essential (primary) hypertension (principal); E11.9 Type 2 diabetes mellitus without complications
CPT/HCPCS: 36415; 80053; 80061; 83036; 84443; 85025

== ENCOUNTER → 2021-10-30 | Outpatient (CLI) | payer OTHER, SELFPAY ==
[2021-10-30 16:48] LABS: Anion Gap 6 (5-15); BUN 34 mg/dL (7-18); BUN/Creat Ratio 24.3 RATIO (10-20); Calcium,Total 9.1 mg/dL (8.5-10.1); Chloride 104 mmol/L (98-107); EST Glomerular Filtration Rate 41 mL/min (>60); Est Glom Filt Rate - Afr Amer 50 mL/min (>60); Glucose 345 mg/dL (74-106); Potassium 4.8 mmol/L (3.5-5.1); Sodium Level 137 mmol/L (136-145)
== END | disposition home or self-care (01) ==
LOC: POLAB3 15:39
PROVIDERS: PCP Family Medicine Geriatric Medicine; Visit Provider Family Medicine Geriatric Medicine
DX: I10 Essential (primary) hypertension (principal)
CPT/HCPCS: 36415; 80048

== ENCOUNTER → 2022-04-22 | Outpatient (CLI) | payer OTHER, SELFPAY ==
[2022-04-22 17:25] LABS: Absolute Lymphocyte Count 1.66 X10^3/uL (0.83-4.51); Absolute Neutrophil Count 6.6 X10^3/uL (2.0-7.7); Basophil# 0.04 X10^3/uL; Basophil% 0.4 % (0-1); Eosinophils% 2.2 % (0-5); Hematocrit 44.8 % (37-47); Hemoglobin 14.4 g/dL (12.0-15.0); Lymphocyte # 1.66 X10^3/ul (0.83-4.51); Lymphocyte % 18.3 % (19-41); Mean Corp Hgb Conc 32.1 g/dL (32-36); Mean Corpuscular Hgb 28.3 pg (27.0-32.0); Mean Platelet Vol. 10.2 fl (6.2-12.0); Monocyte# 0.51 X10^3/uL; Monocyte% 5.6 % (0-10); NRBC Flagged by Analyzer 0 % (0-5); Neutrophil # 6.61 X10^3/uL (2.7-7.7); Neutrophil % 73.1 % (47-70); Platelet Count 253 K/mm3 (150-450); RBC Distribution Width CV 15.3 % (11.6-14.6); Red Blood Count 5.09 M/mm3 (4.2-5.4); White Blood Count 9.1 K/mm3 (4.4-11.0)
[2022-04-22 18:13] LABS: ALB/GLOB Ratio 0.7 RATIO (0.9-2.4); AST(SGOT) 14 U/L (15-37); Alanine Aminotransfer ALT/SGPT 27 U/L (13-56); Albumin, Serum 3.3 g/dL (3.2-5.0); Alkaline Phosphatase 132 U/L (45-117); Anion Gap 12 (5-15); BUN 37 mg/dL (7-18); Calcium,Total 8.7 mg/dL (8.5-10.1); Chloride 103 mmol/L (98-107); Creatinine, Serum 1.37 mg/dL (0.55-1.02); EST Glomerular Filtration Rate 42 mL/min (>60); Est Glom Filt Rate - Afr Amer 51 mL/min (>60); Globulin 4.5 g/dL (2.2-4.2); Glucose 285 mg/dL (74-106); Potassium 4.5 mmol/L (3.5-5.1); Protein, Total 7.8 g/dL (6.4-8.2); Sodium Level 136 mmol/L (136-145); Thyroid Stim Hormone (TSH) 1.27 uIU/mL (0.358-3.74)
== END | disposition home or self-care (01) ==
LOC: POLAB3 13:35
PROVIDERS: PCP Family Medicine Geriatric Medicine; Visit Provider Family Medicine Geriatric Medicine
DX: I10 Essential (primary) hypertension (principal); E11.65 Type 2 diabetes mellitus with hyperglycemia
CPT/HCPCS: 36415; 80053; 84443; 85025

== ENCOUNTER → 2022-06-20 | Outpatient (CLI) | payer OTHER, SELFPAY | END | disposition home or self-care (01) | LOC: PSN 09:24 | PROVIDERS: PCP Family Medicine Geriatric Medicine; Visit Provider Family Medicine Geriatric Medicine | DX: R68.83 Chills (without fever) (principal); Z20.822 Contact with and (suspected) exposure to COVID-19 | CPT/HCPCS: 87635; 87804; 87807; C9803; U0003; U0005 ==

== ENCOUNTER → 2022-09-09 | Outpatient (CLI) | payer OTHER, SELFPAY ==
[2022-09-09 17:45] LABS: Absolute Neutrophil Count 6.8 X10^3/uL (2.0-7.7); Basophil# 0.03 X10^3/uL; Basophil% 0.3 % (0-1); Eosinophil# 0.07 X10^3/uL; Eosinophils% 0.8 % (0-5); Hematocrit 44.4 % (37-47); Hemoglobin 14.1 g/dL (12.0-15.0); Lymphocyte % 15.9 % (19-41); Mean Corp Hgb Conc 31.8 g/dL (32-36); Mean Corpuscular Hgb 28.1 pg (27.0-32.0); Mean Corpuscular Volume 88.6 fL (81-99); Monocyte# 0.47 X10^3/uL; Monocyte% 5.4 % (0-10); NRBC Flagged by Analyzer 0 % (0-5); Neutrophil # 6.77 X10^3/uL (2.7-7.7); Neutrophil % 77.1 % (47-70); Platelet Count 228 K/mm3 (150-450); RBC Distribution Width CV 15.8 % (11.6-14.6); RBC Distribution Width SD 48.2 fl (35.1-43.9); Red Blood Count 5.01 M/mm3 (4.2-5.4); White Blood Count 8.8 K/mm3 (4.4-11.0)
[2022-09-09 17:51] LABS: ALB/GLOB Ratio 0.8 RATIO (0.9-2.4); AST(SGOT) 18 U/L (15-37); Alanine Aminotransfer ALT/SGPT 30 U/L (13-56); Albumin, Serum 3.3 g/dL (3.2-5.0); Alkaline Phosphatase 153 U/L (45-117); Anion Gap 3 (5-15); BUN 29 mg/dL (7-18); BUN/Creat Ratio 21.6 RATIO (10-20); Calcium,Total 8.8 mg/dL (8.5-10.1); Chloride 105 mmol/L (98-107); Creatinine, Serum 1.34 mg/dL (0.55-1.02); EST Glomerular Filtration Rate 44 mL/min (>60); Est Glom Filt Rate - Afr Amer 53 mL/min (>60); Globulin 4.3 g/dL (2.2-4.2); Glucose 217 mg/dL (74-106); Potassium 4.6 mmol/L (3.5-5.1); Protein, Total 7.6 g/dL (6.4-8.2); Sodium Level 138 mmol/L (136-145); Thyroid Stim Hormone (TSH) 1.06 uIU/mL (0.358-3.74)
== END | disposition home or self-care (01) ==
LOC: POLAB3 16:21
PROVIDERS: PCP Family Medicine Geriatric Medicine; Visit Provider Family Medicine Geriatric Medicine
DX: E11.65 Type 2 diabetes mellitus with hyperglycemia (principal); I10 Essential (primary) hypertension
CPT/HCPCS: 36415; 80053; 84443; 85025

== ENCOUNTER → 2022-10-17 | Outpatient (CLI) | payer OTHER, SELFPAY ==
[2022-10-17 07:54] LABS: Anion Gap 8 (5-15); BUN 20 mg/dL (7-18); BUN/Creat Ratio 20.5 RATIO (10-20); Chloride 107 mmol/L (98-107); Creatinine, Serum 0.98 mg/dL (0.55-1.02); EST Glomerular Filtration Rate 63 mL/min (>60); Est Glom Filt Rate - Afr Amer 76 mL/min (>60); Glucose 136 mg/dL (74-106); Potassium 3.3 mmol/L (3.5-5.1); Sodium Level 144 mmol/L (136-145)
== END | disposition home or self-care (01) ==
LOC: LAB 07:30
PROVIDERS: PCP Family Medicine Geriatric Medicine; Referring Provider Family Medicine Geriatric Medicine; Visit Provider Family Medicine Geriatric Medicine
DX: E24.9 Cushing's syndrome, unspecified (principal)
CPT/HCPCS: 36415; 80048

== ENCOUNTER → 2022-10-30 | Outpatient (CLI) | payer OTHER, SELFPAY ==
[2022-10-30 07:29] LABS: Anion Gap 2 (5-15); BUN 15 mg/dL (7-18); BUN/Creat Ratio 12.4 RATIO (10-20); Calcium,Total 9.4 mg/dL (8.5-10.1); Chloride 109 mmol/L (98-107); Creatinine, Serum 1.21 mg/dL (0.55-1.02); EST Glomerular Filtration Rate 49 mL/min (>60); Est Glom Filt Rate - Afr Amer 59 mL/min (>60); Glucose 127 mg/dL (74-106); Potassium 4.1 mmol/L (3.5-5.1); Sodium Level 143 mmol/L (136-145)
== END | disposition home or self-care (01) ==
LOC: LAB 06:49
PROVIDERS: PCP Family Medicine Geriatric Medicine; Referring Provider Family Medicine Geriatric Medicine; Visit Provider Family Medicine Geriatric Medicine
DX: E24.9 Cushing's syndrome, unspecified (principal)
CPT/HCPCS: 36415; 80048

== ENCOUNTER → 2022-11-14 | Outpatient (CLI) | payer OTHER, SELFPAY ==
[2022-11-14 09:28] LABS: Anion Gap 5 (5-15); BUN 19 mg/dL (7-18); BUN/Creat Ratio 15.1 RATIO (10-20); Chloride 104 mmol/L (98-107); Creatinine, Serum 1.26 mg/dL (0.55-1.02); EST Glomerular Filtration Rate 47 mL/min (>60); Est Glom Filt Rate - Afr Amer 56 mL/min (>60); Glucose 380 mg/dL (74-106); Potassium 4.1 mmol/L (3.5-5.1); Sodium Level 138 mmol/L (136-145)
== END | disposition home or self-care (01) ==
PROVIDERS: PCP Family Medicine Geriatric Medicine; Visit Provider Family Medicine Geriatric Medicine
DX: I10 Essential (primary) hypertension (principal); E11.65 Type 2 diabetes mellitus with hyperglycemia
CPT/HCPCS: 36415; 80048

== ENCOUNTER → 2022-12-15 | Outpatient (CLI) | payer OTHER, SELFPAY ==
--- NOTE | 2022-12-15 10:40 | CT_ITS ---
STUDY: CT BRAIN WITHOUT CONTRAST REASON FOR EXAM: Female, 57 years old. CLOSED HEAD INJURY, history of TBI in 2019. RADIATION DOSAGE (If Supplied By Facility): CTDIvol = ( 44.99 ) mGy, DLP = ( 880.47 ) mGycm TECHNIQUE: Transaxial CT imaging of the brain was performed without administration of intravenous contrast material. Individualized dose optimization techniques were used for this CT. COMPARISON: Comparison is made with prior study dated July 16, 2018. FINDINGS: Normal soft tissue structures. Evidence of prior left parietal craniotomy. There is mild cerebral atrophy with widening of the extra-axial spaces and ventricular dilatation. Normal white matter tracts of the cerebral hemispheres. Normal basal ganglia and thalami. Normal brainstem. Normal cerebellum. There is no intracranial hemorrhage. There are no findings of an acute ischemic infarction. Normal visualized paranasal sinuses. CT/Brain/Head without Contrast IMPRESSION: Chronic involutional changes of the brain. Prior left parietal craniotomy. Electronically Signed: Gurpreet Servin MD at 11:11 EDT ,
== END | disposition home or self-care (01) ==
PROVIDERS: PCP Family Medicine Geriatric Medicine; Referring Provider Family Medicine Geriatric Medicine; Visit Provider Family Medicine Geriatric Medicine
DX: S09.90XD Unspecified injury of head, subsequent encounter (principal); X58.XXXD Exposure to other specified factors, subsequent encounter
CPT/HCPCS: 70450

== ENCOUNTER 2023-01-07 09:56 | Emergency (ER) | payer OTHER, SELFPAY ==
[2023-01-07 09:57] VITALS: BP 221/86; PULSE 106; RESP 18; TEMP 35.9; O2SAT 97; BMI 26.8
--- NOTE | 2023-01-07 10:07 | EX.ED.DYSGE1 ---
HPI History of Present Illness Chief Complaint: Nausea/Vomiting Detail of Chief Complaint: Multiple symptoms Informant: patient Onset/Context/Timing Onset: Days (Fatigue, lack of energy) and Weeks (2 weeks of abdominal discomfort and nausea with intermittent vomiting) Context: - (Not applicable) Timing: Continuous and Waxes and wanes Quality: Discomfort Location: Right and left quadrant and generalized with regards to the fatigue Current Severity: Mild Maximum Severity: Moderate Worsened by: Nothing Relieved by: Nothing Associated Symptoms Associated Symptoms: Fatigue, lack of energy, reported 15 pound intentional weight loss over the Narrative Narrative: Patient is a-year-old with an with history of diabetes, and on medicine for cholesterol and blood pressure. Patient states she has not been her normal self for couple of weeks. Today she had absolutely no energy and was late for work. 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 She denies fever, chills or night sweats. She denies headache, visual, ocular auditory symptoms. She believes she is dry and states her tongue is dry. She is thirsty. She denies chest pain, shortness of breath, dyspnea on exertion, orthopnea or PND. She does endorse nausea and vomiting. She had episode of vomiting today. Her stool was very soft. She did not notice blood or mucus. She denies melena or hematochezia. She denies change in urination. Patient's had recent blood work and her creatinine has doubled over the past 2 months. Prior similar symptoms: No Recent Illness/Hospitalization: No PFSH PFSH Home Medications atorvastatin 10 mg tablet 10 mg PO QHS 06/01/18 [History Last Taken Unknown] escitalopram oxalate 20 mg tablet 20 mg PO BID 06/01/18 [History Last Taken Unknown] insulin degludec 100 unit-liraglutide 3.6 mg/mL(3 mL) subcutaneous pen (Xultophy 100/3.6) 36 units SQ DAILY 06/01/18 [History Last Taken Unknown] lisinopril 20 mg tablet 20 mg PO BID 06/01/18 [History Last Taken Unknown] metformin 1,000 mg tablet 1,000 mg PO BIDCM 06/01/18 [History Last Taken Unknown] pioglitazone 30 mg tablet 30 mg PO DAILY 06/01/18 [History Last Taken Unknown] levothyroxine 88 mcg tablet (Synthroid) 88 mcg PO DAILY #30 tabs 01/07/23 [Rx Last Taken Unknown] potassium chloride 20 mEq/15 mL oral liquid 20 meq (15 mL) PO BID #473 mL 01/07/23 [Rx Last Taken Unknown] Allergy/AdvReac Type Severity Reaction Status Date / Time diclofenac [From Cataflam] Allergy Hives Verified 06/01/18 12:10 Penicillins Allergy Hives Verified 06/01/18 12:10 Social History (Updated 01/07/23 @ 10:[address] Isra Cedillo MD) household members: none Smoking Status: Never smoker substance use type: does not use ROS ROS ED Constitutional Constitutional ED: Reports weight loss; Denies chills, fever(s), subjective or sweats Eyes Eyes: Denies blurry vision, change in vision or diplopia ENT ENT ED: Denies ear pain, rhinorrhea or sore throat Cardiovascular Cardiovascular: Denies chest pain, orthopnea, palpitations, paroxysmal nocturnal dyspnea or racing heartbeat Respiratory/Chest Respiratory/Chest: Denies cough, dyspnea, dyspnea on exertion, orthopnea or paroxysmal nocturnal dyspnea Gastrointestinal Gastrointestinal: Reports abdominal pain, nausea and vomiting; Denies constipation, diarrhea or melena Genitourinary Genitourinary ED: Denies dysuria, hematuria or urinary frequency Musculoskeletal Musculoskeletal: Denies arthralgias, back pain, myalgias or neck pain Integumentary Denies rash Neurologic Neurologic: Reports weakness; Denies headache(s) or paresthesias Psychiatric Psychiatric: Denies anxiety or depression Hematologic/Lymphatic Hematologic/Lymphatic: Reports systems reviewed and no addt'l complaints, except as documented EXAM Physical Exam Const Vital Signs: 01/07/23 09:57 Temperature 96.7 F L Temperature Source Temporal Pulse Rate 106 H Respiratory Rate 18 Blood Pressure 221/86 H Blood Pressure Mean 131 Pulse Ox 97 Oxygen Delivery Method Room Air Positive well nourished and well developed Constitutional Narrative: Patient does not appear well. He does not appear toxic. General Appearance ED: well developed and NAD; Negative for cyanotic, diaphoretic or pallor HEENT Reports dry mucous membranes HEENT Narrative: Head is atraumatic normocephalic. Ears normal. Nares patent. Posterior pharynx is normal. Mouth ED: Yes dry mucous membranes Mouth: dry mucous membranes Eyes PERRL and EOMs intact bilaterally Eyes Narrative: Her right eye is slightly proptotic. General Eye ED: Negative for pale conjunctiva or scleral icterus Neck no lymphadenopathy, supple and no JVD Chest Wall inspection of chest normal and palpation of chest normal Resp normal respiratory effort and clear to auscultation bilaterally Cardio regular rhythm, S1 normal heart sound, S2 normal heart sound and no murmurs Rate: tachycardic GI normal to inspection, nondistended, normoactive bowel sounds, non-tender, non-distended and no masses; Negative for hepatosplenomegaly Palpation: soft Back/Spine no CVA tenderness Extremity Negative for normal to inspection Extremity Narrative: Slight edema of the lower extremities. DP and PT pulses palpable. Neuro oriented x3, CN's II-XII intact bilaterally and no sensory deficits noted Neuro Narrative: Patient is awake but not necessarily alert gait was observed and normal There is delayed relaxation phase of the ankle reflex. This is suggestive of hypothyroidism Motor Exam: strength 5/5 throughout Psych Psych Narrative: Affect is flat. Skin Skin Narrative: Possible mild venous stasis dermatitis of the right and left leg. General Skin Exam: Negative for jaundice or pallor MDM MDM MDM Narrative Medical decision making narrative: Clinically patient appears dehydrated. In light of her recent creatinine elevation will obtain BMP to assess renal function, electrolytes and as well as glucose and anion gap since she does have diabetes. CBC to rule out anemia since she is complaining of fatigue. Because of the proptosis fatigue vague abdominal discomfort will obtain TSH today to assess for hypothyroidism. 1 L of normal saline was ordered. Review of prior records indicates patient was seen in 2019 for a left subdural hematoma which required emergent transfer. Recent labs were reviewed and creatinine has increased from approximately 0.6-1.2. Apparently patient did not take her blood pressure medicine this morning. She does have her blood pressure medicine with her. She asked if she could take her own medicine. She was told yes. Patient's TSH is a bated at 8.24. Most recent TSH was approximately 1. This would explain her vague abdominal pain fatigue lack of energy. Patient will receive 40 mEq of potassium now and in 1 hour and discharged with potassium to have level assessed in 5 to 7 days. She also received levothyroxine. History & Record Review Additional record(s) reviewed:: Prior ED visit and Prior labs Lab Data Attestation: I reviewed the patient's lab results. Lab results narrative: Weight 2 g from baseline and would suggest/be consistent with dehydration. Labs: Laboratory Results - last 24 hr 01/07/23 10:12 WBC 8.2 RBC 5.63 H Hgb 15.1 H Hct 47.5 H MCV 84.4 MCH 26.8 L MCHC 31.8 L RDW Std Deviation 44.1 H RDW Coeff of Domingo 14.6 Plt Count 263 MPV 10.0 Immature Gran % (Auto) 0.200 Neut % (Auto) 77.5 H Lymph % (Auto) 14.3 L [place] % (Auto) 6.7 Eos % (Auto) 0.9 Baso % (Auto) 0.4 Absolute Neuts (auto) 6.3 Absolute Lymphs (auto) 1.17 Nucleated RBC % 0 Sodium 137 Potassium 2.1 L* Chloride 95 L Carbon Dioxide 27.0 Anion Gap 15 BUN 10 Creatinine 0.88 Estim Creat Clear Calc 69.42 Est GFR (MDRD) Af Amer 86 Est GFR (MDRD) Non-Af 71 BUN/Creatinine Ratio 11.4 Glucose 132 H Calcium 8.7 Total Bilirubin 0.70 AST 38 H ALT 31 Alkaline Phosphatase 147 H Total Protein 6.9 Albumin 2.7 L Globulin 4.2 Albumin/Globulin Ratio 0.6 L TSH 8.24 H Treatment and Re-Evaluation :: Patient was treated with 40 mEq of potassium x2. She was discharged with scription for potassium. She received her first dose of Synthroid in the Emergency Department discharged prescription for Synthroid. Discharge Plan Triage Chief Complaint: Nausea/Vomiting ED Provider: Isra Cedillo Dx/Rx/DC Orders Clinical Impression: Acute dehydration, Accelerated essential hypertension, Hypothyroidism, Acute hypokalemia Instructions: ED Hypothyroidism, ED Hypokalemia Prescriptions: New levothyroxine [Synthroid] 88 mcg tablet 88 mcg PO DAILY Qty: 30 0RF potassium chloride 20 mEq/15 mL liquid 20 meq PO BID Qty: 473 0RF No Action atorvastatin 10 MG tablet 10 mg PO QHS lisinopril 20 MG tablet 20 mg PO BID metformin 1,000 MG tablet 1,000 mg PO BIDCM pioglitazone 30 MG tablet 30 mg PO DAILY escitalopram oxalate 20 MG tablet 20 mg PO BID insulin degludec-liraglutide [Xultophy 100/3.6] 3 ML insulin pen 36 units SQ DAILY Primary Care Provider: Diomedes Gould Chi Referrals: Diomedes Gould Chi, MD [Primary Care Provider] - Activity Restrictions/Additional Instructions: 1. Follow-up with Dr. Gould for repeat TSH and 2 to 4 weeks 2. You will need repeat blood work to assess your potassium in 5 to 7 days 3. Recommend monitoring your blood pressure. Disposition Disposition: Home, Self Care
[2023-01-07 10:27] LABS: Absolute Lymphocyte Count 1.17 X10^3/uL (0.83-4.51); Absolute Neutrophil Count 6.3 X10^3/uL (2.0-7.7); Basophil# 0.03 X10^3/uL; Basophil% 0.4 % (0-1); Eosinophil# 0.07 X10^3/uL; Eosinophils% 0.9 % (0-5); Hematocrit 47.5 % (37-47); Hemoglobin 15.1 g/dL (12.0-15.0); Lymphocyte # 1.17 X10^3/ul (0.83-4.51); Lymphocyte % 14.3 % (19-41); Mean Corp Hgb Conc 31.8 g/dL (32-36); Mean Corpuscular Hgb 26.8 pg (27.0-32.0); Mean Corpuscular Volume 84.4 fL (81-99); Monocyte# 0.55 X10^3/uL; Monocyte% 6.7 % (0-10); NRBC Flagged by Analyzer 0 % (0-5); Neutrophil # 6.33 X10^3/uL (2.7-7.7); Neutrophil % 77.5 % (47-70); Platelet Count 263 K/mm3 (150-450); RBC Distribution Width CV 14.6 % (11.6-14.6); RBC Distribution Width SD 44.1 fl (35.1-43.9); Red Blood Count 5.63 M/mm3 (4.2-5.4); White Blood Count 8.2 K/mm3 (4.4-11.0)
[2023-01-07] MEDS: 0.9% Normal Saline 1,000 ML 1000 ML IV (10:27)
[2023-01-07 10:53] LABS: ALB/GLOB Ratio 0.6 RATIO (0.9-2.4); AST(SGOT) 38 U/L (15-37); Alanine Aminotransfer ALT/SGPT 31 U/L (13-56); Albumin, Serum 2.7 g/dL (3.2-5.0); Alkaline Phosphatase 147 U/L (45-117); Anion Gap 15 (5-15); BUN 10 mg/dL (7-18); BUN/Creat Ratio 11.4 RATIO (10-20); Calcium,Total 8.7 mg/dL (8.5-10.1); Chloride 95 mmol/L (98-107); Creatinine, Serum 0.88 mg/dL (0.55-1.02); EST Glomerular Filtration Rate 71 mL/min (>60); Est Glom Filt Rate - Afr Amer 86 mL/min (>60); Estimated Creatinine Clearance 69.42 ml/min; Globulin 4.2 g/dL (2.2-4.2); Glucose 132 mg/dL (74-106); Potassium 2.1 mmol/L (3.5-5.1); Protein, Total 6.9 g/dL (6.4-8.2); Sodium Level 137 mmol/L (136-145); Thyroid Stim Hormone (TSH) 8.24 uIU/mL (0.358-3.74)
[2023-01-07] MEDS: Levothyroxine 88 MCG Tablet PO (11:48)
[2023-01-07] MEDS: Potassium Chloride Oral Soln 20 MEQ/15 ML UDC 40 MEQ PO ×2 (11:48→11:49)
[2023-01-07 11:55] LABS: Mucous, Urine 0 SEEN /hpf (<or=2+)
[2023-01-07 12:01] VITALS: BP 196/78; PULSE 76; RESP 16; O2SAT 99
[2023-01-07 12:03] LABS: Color, Urine Yellow (Yellow); Glucose, Dipstick 1000 mg/dl (Normal); Leukocyte Esterase-Dipstick 100 /ul (Negative); Nitrite-Dipstick Negative (Negative); Occult Blood-Urine 250 /ul (Negative); Protein-Dipstick 100 mg/dl (Negative); Urine Bilirubin Dipstick Negative (Negative); Urine Clarity Sl. Cloudy (Clear); Urine Urobilinogen Normal (Normal)
[2023-01-07 12:06] LABS: Ketone-Dipstick 150 mg/dl (Negative)
[2023-01-07 12:10] LABS: Bacteria 1+ /hpf (None Seen); Red Blood Cells-Urine 5-10 SEEN /hpf (0-5); Squamous Epithelial Cells - UA 10-25 SEEN /hpf (5-10); White Blood Cells 5-10 SEEN /hpf (0-5)
== END 2023-01-07 12:04 | disposition home or self-care (01) ==
PROVIDERS: Emergency Provider Emergency Medicine; PCP Family Medicine Geriatric Medicine; Visit Provider Emergency Medicine
DX: E86.0 Dehydration (principal); E11.9 Type 2 diabetes mellitus without complications; I10 Essential (primary) hypertension; E03.9 Hypothyroidism, unspecified; E87.6 Hypokalemia; Z79.899 Other long term (current) drug therapy; Z79.890 Hormone replacement therapy
CPT/HCPCS: 80053; 81001; 84443; 85025; 96360; 96361; 99284; J7030; A4216

== ENCOUNTER → 2023-01-08 | Outpatient (CLI) | payer OTHER, SELFPAY ==
[2023-01-08 10:50] LABS: Absolute Lymphocyte Count 0.98 X10^3/uL (0.83-4.51); Absolute Neutrophil Count 8.3 X10^3/uL (2.0-7.7); Basophil# 0.02 X10^3/uL; Basophil% 0.2 % (0-1); Eosinophil# 0.06 X10^3/uL; Eosinophils% 0.6 % (0-5); Hematocrit 47.9 % (37-47); Hemoglobin 15.2 g/dL (12.0-15.0); Lymphocyte # 0.98 X10^3/ul (0.83-4.51); Lymphocyte % 9.8 % (19-41); Mean Corp Hgb Conc 31.7 g/dL (32-36); Mean Corpuscular Volume 85.2 fL (81-99); Mean Platelet Vol. 9.8 fl (6.2-12.0); Monocyte# 0.54 X10^3/uL; Monocyte% 5.4 % (0-10); NRBC Flagged by Analyzer 0 % (0-5); Neutrophil # 8.33 X10^3/uL (2.7-7.7); Neutrophil % 83.6 % (47-70); Platelet Count 258 K/mm3 (150-450); RBC Distribution Width CV 14.9 % (11.6-14.6); RBC Distribution Width SD 45.9 fl (35.1-43.9); Red Blood Count 5.62 M/mm3 (4.2-5.4)
[2023-01-08 11:22] LABS: Hemoglobin A1c 8.8 % (3.8-5.6)
[2023-01-08 11:52] LABS: ALB/GLOB Ratio 0.6 RATIO (0.9-2.4); AST(SGOT) 31 U/L (15-37); Alanine Aminotransfer ALT/SGPT 27 U/L (13-56); Albumin, Serum 2.5 g/dL (3.2-5.0); Alkaline Phosphatase 139 U/L (45-117); Anion Gap 11 (5-15); BUN 8 mg/dL (7-18); Calcium,Total 7.8 mg/dL (8.5-10.1); Chloride 108 mmol/L (98-107); Cholesterol 157 mg/dL (200); Creatinine, Serum 0.88 mg/dL (0.55-1.02); EST Glomerular Filtration Rate 70 mL/min (>60); Est Glom Filt Rate - Afr Amer 85 mL/min (>60); Globulin 4.1 g/dL (2.2-4.2); Glucose 117 mg/dL (74-106); High Density Lipoprotein 21 mg/dL; Potassium 2.5 mmol/L (3.5-5.1); Protein, Total 6.6 g/dL (6.4-8.2); Sodium Level 140 mmol/L (136-145); Thyroid Stim Hormone (TSH) 5.26 uIU/mL (0.358-3.74); Triglycerides 335 mg/dL; Very Low Density Lipoprotein 67 mg/dL (5-40)
== END | disposition home or self-care (01) ==
LOC: POLAB3 10:31
PROVIDERS: PCP Family Medicine Geriatric Medicine; Visit Provider Family Medicine Geriatric Medicine
DX: I10 Essential (primary) hypertension (principal); E11.65 Type 2 diabetes mellitus with hyperglycemia
CPT/HCPCS: 36415; 80053; 80061; 83036; 84443; 85025

== ENCOUNTER → 2023-01-09 | Outpatient (CLI) | payer OTHER, SELFPAY ==
[2023-01-09 10:24] LABS: Anion Gap 5 (5-15); BUN 6 mg/dL (7-18); Calcium,Total 8.9 mg/dL (8.5-10.1); Chloride 103 mmol/L (98-107); EST Glomerular Filtration Rate 61 mL/min (>60); Est Glom Filt Rate - Afr Amer 74 mL/min (>60); Glucose 251 mg/dL (74-106); Potassium 2.7 mmol/L (3.5-5.1); Sodium Level 140 mmol/L (136-145)
[2023-01-09 11:16] LABS: Magnesium 1.6 mg/dL (1.6-2.6)
== END | disposition home or self-care (01) ==
LOC: POLAB3 09:35
PROVIDERS: PCP Family Medicine Geriatric Medicine; Visit Provider Family Medicine Geriatric Medicine
DX: E87.6 Hypokalemia (principal); E61.2 Magnesium deficiency
CPT/HCPCS: 36415; 80048; 83735

== ENCOUNTER → 2023-01-11 | Outpatient (CLI) | payer OTHER, SELFPAY ==
[2023-01-11 14:39] LABS: Anion Gap 4 (5-15); BUN 7 mg/dL (7-18); BUN/Creat Ratio 6.3 RATIO (10-20); Calcium,Total 8.5 mg/dL (8.5-10.1); Chloride 98 mmol/L (98-107); Creatinine, Serum 1.11 mg/dL (0.55-1.02); EST Glomerular Filtration Rate 54 mL/min (>60); Est Glom Filt Rate - Afr Amer 65 mL/min (>60); Glucose 369 mg/dL (74-106); Sodium Level 137 mmol/L (136-145)
== END | disposition home or self-care (01) ==
LOC: LAB 14:09
PROVIDERS: PCP Family Medicine Geriatric Medicine; Visit Provider Family Medicine Geriatric Medicine
DX: E87.6 Hypokalemia (principal)
CPT/HCPCS: 36415; 80048

== ENCOUNTER → 2023-01-13 | Outpatient (CLI) | payer OTHER, SELFPAY ==
[2023-01-13 12:30] LABS: Anion Gap 5 (5-15); BUN 10 mg/dL (7-18); BUN/Creat Ratio 9.3 RATIO (10-20); Calcium,Total 8.6 mg/dL (8.5-10.1); Chloride 102 mmol/L (98-107); Creatinine, Serum 1.07 mg/dL (0.55-1.02); EST Glomerular Filtration Rate 56 mL/min (>60); Est Glom Filt Rate - Afr Amer 68 mL/min (>60); Glucose 293 mg/dL (74-106); Sodium Level 138 mmol/L (136-145)
== END | disposition home or self-care (01) ==
LOC: POLAB3 12:00
PROVIDERS: PCP Family Medicine Geriatric Medicine; Visit Provider Family Medicine Geriatric Medicine
DX: E87.6 Hypokalemia (principal)
CPT/HCPCS: 36415; 80048

== ENCOUNTER → 2023-01-15 | Outpatient (CLI) | payer OTHER, SELFPAY ==
[2023-01-15 18:26] LABS: Anion Gap 6 (5-15); BUN 15 mg/dL (7-18); BUN/Creat Ratio 14.9 RATIO (10-20); Calcium,Total 9.1 mg/dL (8.5-10.1); Chloride 102 mmol/L (98-107); Creatinine, Serum 1.01 mg/dL (0.55-1.02); EST Glomerular Filtration Rate 60 mL/min (>60); Est Glom Filt Rate - Afr Amer 73 mL/min (>60); Glucose 215 mg/dL (74-106); Potassium 3.5 mmol/L (3.5-5.1); Sodium Level 137 mmol/L (136-145)
== END | disposition home or self-care (01) ==
LOC: POLAB3 16:10
PROVIDERS: PCP Family Medicine Geriatric Medicine; Visit Provider Family Medicine Geriatric Medicine
DX: E24.9 Cushing's syndrome, unspecified (principal)
CPT/HCPCS: 36415; 80048

== ENCOUNTER → 2023-01-19 | Outpatient (CLI) | payer OTHER, SELFPAY ==
[2023-01-19 09:48] LABS: Anion Gap 6 (5-15); BUN 12 mg/dL (7-18); BUN/Creat Ratio 12.1 RATIO (10-20); Chloride 104 mmol/L (98-107); Creatinine, Serum 0.99 mg/dL (0.55-1.02); EST Glomerular Filtration Rate 62 mL/min (>60); Est Glom Filt Rate - Afr Amer 74 mL/min (>60); Glucose 160 mg/dL (74-106); Potassium 4.6 mmol/L (3.5-5.1); Sodium Level 138 mmol/L (136-145)
== END | disposition home or self-care (01) ==
PROVIDERS: PCP Family Medicine Geriatric Medicine; Visit Provider Family Medicine Geriatric Medicine
DX: E24.9 Cushing's syndrome, unspecified (principal)
CPT/HCPCS: 36415; 80048

== ENCOUNTER → 2023-01-22 | Outpatient (CLI) | payer OTHER, SELFPAY ==
[2023-01-22 17:29] LABS: Anion Gap 4 (5-15); BUN 20 mg/dL (7-18); BUN/Creat Ratio 16.4 RATIO (10-20); Calcium,Total 8.7 mg/dL (8.5-10.1); Chloride 103 mmol/L (98-107); Creatinine, Serum 1.22 mg/dL (0.55-1.02); EST Glomerular Filtration Rate 48 mL/min (>60); Est Glom Filt Rate - Afr Amer 59 mL/min (>60); Glucose 213 mg/dL (74-106); Potassium 4.6 mmol/L (3.5-5.1); Sodium Level 137 mmol/L (136-145)
== END | disposition home or self-care (01) ==
LOC: POLAB3 15:57
PROVIDERS: PCP Family Medicine Geriatric Medicine; Visit Provider Family Medicine Geriatric Medicine
DX: E87.6 Hypokalemia (principal)
CPT/HCPCS: 36415; 80048

== ENCOUNTER → 2023-01-26 | Outpatient (CLI) | payer OTHER, SELFPAY ==
[2023-01-26 14:46] LABS: Anion Gap 6 (5-15); BUN 19 mg/dL (7-18); BUN/Creat Ratio 13.7 RATIO (10-20); Chloride 102 mmol/L (98-107); Creatinine, Serum 1.39 mg/dL (0.55-1.02); EST Glomerular Filtration Rate 42 mL/min (>60); Est Glom Filt Rate - Afr Amer 50 mL/min (>60); Glucose 257 mg/dL (74-106); Potassium 4.1 mmol/L (3.5-5.1); Sodium Level 139 mmol/L (136-145)
== END | disposition home or self-care (01) ==
LOC: POLAB3 14:01
PROVIDERS: PCP Family Medicine Geriatric Medicine; Visit Provider Family Medicine Geriatric Medicine
DX: E24.9 Cushing's syndrome, unspecified (principal)
CPT/HCPCS: 36415; 80048

== ENCOUNTER → 2023-01-29 | Outpatient (CLI) | payer OTHER, SELFPAY ==
[2023-01-29 18:06] LABS: Hemoglobin A1c 8.6 % (3.8-5.6)
[2023-01-29 18:16] LABS: Anion Gap 6 (5-15); BUN 31 mg/dL (7-18); BUN/Creat Ratio 23.7 RATIO (10-20); Calcium,Total 9.2 mg/dL (8.5-10.1); Chloride 103 mmol/L (98-107); Creatinine, Serum 1.31 mg/dL (0.55-1.02); EST Glomerular Filtration Rate 45 mL/min (>60); Est Glom Filt Rate - Afr Amer 54 mL/min (>60); Glucose 230 mg/dL (74-106); Potassium 4.5 mmol/L (3.5-5.1); Sodium Level 137 mmol/L (136-145)
== END | disposition home or self-care (01) ==
LOC: LAB 17:27
PROVIDERS: PCP Family Medicine Geriatric Medicine; Referring Provider Family Medicine Geriatric Medicine; Visit Provider Family Medicine Geriatric Medicine
DX: E24.9 Cushing's syndrome, unspecified (principal)
CPT/HCPCS: 36415; 80048; 83036

== ENCOUNTER → 2023-02-10 | Outpatient (CLI) | payer OTHER, SELFPAY ==
[2023-02-10 18:10] LABS: Thyroid Stim Hormone (TSH) 6.18 uIU/mL (0.358-3.74)
== END | disposition home or self-care (01) ==
PROVIDERS: PCP Family Medicine Geriatric Medicine; Visit Provider Family Medicine Geriatric Medicine
DX: R79.89 Other specified abnormal findings of blood chemistry (principal)
CPT/HCPCS: 36415; 84443

== ENCOUNTER → 2023-02-13 | Outpatient (CLI) | payer OTHER, SELFPAY ==
[2023-02-13 07:36] LABS: Anion Gap 5 (5-15); BUN 19 mg/dL (7-18); Chloride 108 mmol/L (98-107); EST Glomerular Filtration Rate 61 mL/min (>60); Est Glom Filt Rate - Afr Amer 74 mL/min (>60); Glucose 103 mg/dL (74-106); Potassium 3.9 mmol/L (3.5-5.1); Sodium Level 147 mmol/L (136-145)
== END | disposition home or self-care (01) ==
LOC: LAB 06:40
PROVIDERS: PCP Family Medicine Geriatric Medicine; Referring Provider Family Medicine Geriatric Medicine; Visit Provider Family Medicine Geriatric Medicine
DX: E24.9 Cushing's syndrome, unspecified (principal)
CPT/HCPCS: 36415; 80048

== ENCOUNTER 2023-03-04 07:54 | Emergency (ER) | payer OTHER, SELFPAY ==
[2023-03-04 07:55] VITALS: BP 205/94; PULSE 80; RESP 14; TEMP 36.3; O2SAT 100
[2023-03-04 08:03] VITALS: BMI 26.2
--- NOTE | 2023-03-04 08:37 | EDS_ITS ---
HPI History of Present Illness Chief Complaint: Nausea/Vomiting Informant: patient Narrative Narrative: The patient presents with nausea and vomiting. This patient states that yesterday she felt fine. Somewhere in the middle the night she started nausea and vomiting. She has not had any notable diarrhea. No blood in the vomitus. She states her abdomen is sore from vomiting but is not painful. No back or flank pain. No fevers. No urinary symptoms. Patient has had prior hysterectomy and believes she has had an appendectomy. No history of cholecystectomy but no right upper quadrant pain. She does have high blood pressure and is on meds for type 2 diabetes. There have been no change in her medications recently. No abnormal foods. No known exposures to other sick people. [facility] Medical History (Updated 03/04/23 @ 10:[address] Gio Damon MD) Hypertension Hypothyroidism Type 2 diabetes mellitus Home Medications atorvastatin 10 mg tablet 10 mg PO QHS 06/01/18 [History Last Taken Unknown] escitalopram oxalate 20 mg tablet 20 mg PO BID 06/01/18 [History Last Taken Unknown] insulin degludec 100 unit-liraglutide 3.6 mg/mL(3 mL) subcutaneous pen (Xultophy 100/3.6) 36 units SQ DAILY 06/01/18 [History Last Taken Unknown] lisinopril 20 mg tablet 20 mg PO BID 06/01/18 [History Last Taken Unknown] metformin 1,000 mg tablet 1,000 mg PO BIDCM 06/01/18 [History Last Taken Unknown] pioglitazone 30 mg tablet 30 mg PO DAILY 06/01/18 [History Last Taken Unknown] levothyroxine 88 mcg tablet (Synthroid) 88 mcg PO DAILY #30 tabs 01/07/23 [Rx Last Taken Unknown] potassium chloride 20 mEq/15 mL oral liquid 20 meq (15 mL) PO BID #473 mL 01/07/23 [Rx Last Taken Unknown] ondansetron 4 mg disintegrating tablet 4 mg PO Q8H PRN PRN Nausea #10 tabs 03/04/23 [Rx Last Taken Unknown] Allergy/AdvReac Type Severity Reaction Status Date / Time clindamycin Allergy Mild Rash Verified 03/04/23 07:56 diclofenac [From Cataflam] Allergy Hives Verified 03/04/23 07:56 Penicillins Allergy Hives Verified 03/04/23 07:56 Social History household members: none Smoking Status: Never smoker substance use type: does not use ROS ROS ED ROS Narrative A complete review of systems was performed and is negative except as documented in the history of present illness. Some specific details below. Constitutional: No recent fevers or chills. No malaise. EYE: No visual complaints or pain. No change in eye color. ENT: No difficulty swallowing. No swelling. No pain. GERD symptoms or history. CV: No chest pain or palpitations. Respiratory: No dyspnea. No hemoptysis. No difficulty taking breaths. GI: Please see history of present illness. : No frequency dysuria or hematuria. Musculoskeletal: No recent trauma. No pains. Skin: No rash. Nondiaphoretic. Neuro: No weakness or numbness. Endocrine: No polyuria or polydipsia. EXAM Physical Exam Narrative Exam Narrative: CONSTITUTIONAL: Patient is nontoxic in appearance. The patient looks comfortable. HEENT: No notable trauma. Mucous membranes are a bit dry. No sinus tenderness. No indication of pain with swallowing. EYES: No conjunctival injection. No icterus. CARDIOVASCULAR: Regular rate. Regular rhythm. No notable murmur. No JVD. Not notably tachycardic. RESPIRATORY: No respiratory distress. Breathing is unlabored. No wheezes. No rhonchi. No rales. No pain with a deep breath. GASTROINTESTINAL: Not distended. Bowel sounds are normal slightly increased. No tenderness. No guarding. No rebound. No palpable mass. No bruit. Patient is holding an emesis bag with some emesis and no blood. But overall her abdominal exam is relatively benign. GENITOURINARY: No tenderness over the bladder. No CVA tenderness. MUSCULOSKELETAL: Atraumatic. No peripheral edema. No cord. No tenderness along the deep venous system. No asymmetry. NEUROLOGICAL: Patient is alert and appropriate. No gross focal deficit noted. SKIN: No noted rashes. No diaphoresis. No notable pallor. No petechiae. PSYCHIATRIC: Patient is calm. Mood is appropriate. Const Vital Signs: 03/04/23 07:55 03/04/23 10:00 03/04/23 11:17 Temperature 97.4 F L Temperature Source Temporal Pulse Rate 80 87 78 Respiratory Rate 14 16 16 Blood Pressure 205/94 H 193/97 H 108/60 Blood Pressure Mean 131 129 76 Pulse Ox 100 100 Oxygen Delivery Method Room Air Room Air MDM MDM MDM Narrative Medical decision making narrative: CBC shows elevated white count at 16.4. She also has elevated hemoglobin at 16 .4. Platelets are normal. Patient's electrolytes show mild elevation in creatinine at 1.14 but she has had this before. But she also has low potassium at 2.9. Patient states she has had low potassium problems in the past also. Her glucose is also bit high at 225 but she is given IV fluids in the come down on. Patient's liver function test show no marked abnormalities. Patient's lipase is normal. I rechecked the patient. She is feeling better. She states the nausea has not gone but it is much better. She actually had a smile on her face. Her abdomen is soft and nontender. Because her potassium is so low I think it is worth replacing here. We were going to do IV to avoid the nausea of oral potassium. But patient would prefer to try the oral ulcer nausea is feeling much better. Be rechecked again. Doing well here. There is no vomiting. We did give some Phenergan because she still had some residual nausea. Patient does not want IV potassium due to the discomfort. She is sipping very slowly the oral potassium. But she is tolerating it. Our plan is to get her to finish the potassium and get her home. She is not having muscle cramping or carpopedal spasm. I think her potassium will increase as she resumes a normal diet. She is also had crackers and some water and juice here Lab Data Attestation: I reviewed the patient's lab results. Labs: Laboratory Results - last 24 hr 03/04/23 08:15 WBC 16.4 H RBC 6.01 H Hgb 16.4 H Hct 50.7 H MCV 84.4 MCH 27.3 MCHC 32.3 RDW Std Deviation 46.8 H RDW Coeff of [place]ingo 16.8 H Plt Count 310 MPV 10.7 Immature Gran % (Auto) 1.000 H Neut % (Auto) 81.6 H Lymph % (Auto) 10.8 L [place] % (Auto) 5.6 Eos % (Auto) 0.6 Baso % (Auto) 0.4 Absolute Neuts (auto) 13.4 H Absolute Lymphs (auto) 1.77 Nucleated RBC % 0 Sodium 141 Potassium 2.9 L Chloride 103 Carbon Dioxide 27.0 Anion Gap 11 BUN 17 Creatinine 1.14 H Estim Creat Clear Calc 53.58 Est GFR (MDRD) Af Amer 63 Est GFR (MDRD) Non-Af 52 L BUN/Creatinine Ratio 14.9 Glucose 225 H Calcium 9.5 Total Bilirubin 0.70 AST 16 ALT 20 Alkaline Phosphatase 141 H Total Protein 8.2 Albumin 3.2 Globulin 5.0 H Albumin/Globulin Ratio 0.6 L Lipase 46 Discharge Plan Triage Chief Complaint: Nausea/Vomiting ED Provider: Gio Damon Dx/Rx/DC Orders Clinical Impression: History of diabetes mellitus, type II, Nausea & vomiting, Dehydration, Acute hypokalemia Instructions: ED Hypokalemia, ED Vomiting (Adult) Prescriptions: New ondansetron [ondansetron] 4 mg tablet,disintegrating 4 mg PO Q8H PRN PRN (Reason: Nausea) Qty: 10 0RF No Action atorvastatin 10 MG tablet 10 mg PO QHS lisinopril 20 MG tablet 20 mg PO BID metformin 1,000 MG tablet 1,000 mg PO BIDCM pioglitazone 30 MG tablet 30 mg PO DAILY escitalopram oxalate 20 MG tablet 20 mg PO BID insulin degludec-liraglutide [Xultophy 100/3.6] 3 ML insulin pen 36 units SQ DAILY levothyroxine [Synthroid] 88 mcg tablet 88 mcg PO DAILY Qty: 30 0RF potassium chloride 20 mEq/15 mL liquid 20 meq PO BID Qty: 473 0RF Primary Care Provider: Diomedes Gould Chi Referrals: Diomedes Gould Chi, MD [Primary Care Provider] - 1-2 Days if not improving Disposition Disposition: Home, Self Care
[2023-03-04 08:55] LABS: Absolute Lymphocyte Count 1.77 X10^3/uL (0.83-4.51); Absolute Neutrophil Count 13.4 X10^3/uL (2.0-7.7); Basophil# 0.07 X10^3/uL; Basophil% 0.4 % (0-1); Eosinophils% 0.6 % (0-5); Hematocrit 50.7 % (37-47); Hemoglobin 16.4 g/dL (12.0-15.0); Lymphocyte # 1.77 X10^3/ul (0.83-4.51); Lymphocyte % 10.8 % (19-41); Mean Corp Hgb Conc 32.3 g/dL (32-36); Mean Corpuscular Hgb 27.3 pg (27.0-32.0); Mean Corpuscular Volume 84.4 fL (81-99); Mean Platelet Vol. 10.7 fl (6.2-12.0); Monocyte# 0.91 X10^3/uL; Monocyte% 5.6 % (0-10); NRBC Flagged by Analyzer 0 % (0-5); Neutrophil # 13.37 X10^3/uL (2.7-7.7); Neutrophil % 81.6 % (47-70); Platelet Count 310 K/mm3 (150-450); RBC Distribution Width CV 16.8 % (11.6-14.6); RBC Distribution Width SD 46.8 fl (35.1-43.9); Red Blood Count 6.01 M/mm3 (4.2-5.4); White Blood Count 16.4 K/mm3 (4.4-11.0)
[2023-03-04] MEDS: 0.9% Normal Saline (1000mL) 1,000 ML 1000 ML IV (08:56)
[2023-03-04] MEDS: Ondansetron 4 MG/2 ML Vial IV (08:57)
[2023-03-04 09:11] LABS: ALB/GLOB Ratio 0.6 RATIO (0.9-2.4); AST(SGOT) 16 U/L (15-37); Alanine Aminotransfer ALT/SGPT 20 U/L (13-56); Albumin, Serum 3.2 g/dL (3.2-5.0); Alkaline Phosphatase 141 U/L (45-117); Anion Gap 11 (5-15); BUN 17 mg/dL (7-18); BUN/Creat Ratio 14.9 RATIO (10-20); Calcium,Total 9.5 mg/dL (8.5-10.1); Chloride 103 mmol/L (98-107); Creatinine, Serum 1.14 mg/dL (0.55-1.02); EST Glomerular Filtration Rate 52 mL/min (>60); Est Glom Filt Rate - Afr Amer 63 mL/min (>60); Estimated Creatinine Clearance 53.58 ml/min; Glucose 225 mg/dL (74-106); Lipase 46 U/L (13-75); Potassium 2.9 mmol/L (3.5-5.1); Protein, Total 8.2 g/dL (6.4-8.2); Sodium Level 141 mmol/L (136-145)
[2023-03-04 10:00] VITALS: BP 193/97; PULSE 87; RESP 16
[2023-03-04] MEDS: Potassium Chloride Oral Soln 20 MEQ/15 ML UDC 40 MEQ PO (10:55)
[2023-03-04 11:17] VITALS: BP 108/60; PULSE 78; RESP 16; O2SAT 100
[2023-03-04] MEDS: proMETHazine 25 MG/ML Syringe 12.5 MG IM (12:16)
[2023-03-04 13:32] VITALS: BP 121/69; PULSE 72; RESP 15; O2SAT 98
== END 2023-03-04 13:33 | disposition home or self-care (01) ==
PROVIDERS: Emergency Provider Emergency Medicine; PCP Family Medicine Geriatric Medicine; Visit Provider Emergency Medicine
DX: R11.2 Nausea with vomiting, unspecified (principal); E11.9 Type 2 diabetes mellitus without complications; I10 Essential (primary) hypertension; Z90.49 Acquired absence of other specified parts of digestive tract; E86.0 Dehydration; E87.6 Hypokalemia
CPT/HCPCS: 80053; 83690; 85025; 96361; 96372; 96374; 99283; J7030; A4216; J2405

== ENCOUNTER 2023-03-06 08:10 | Inpatient (IN) | payer OTHER, SELFPAY ==
[2023-03-06] VITALS (16 sets, daily range): BP systolic 141–203; BP diastolic 57–104; PULSE 106–115; RESP 8–25; TEMP 36.6–36.8; O2SAT 92–97; BMI 27.3; BMI 25.4
--- NOTE | 2023-03-06 08:23 | CT_ITS ---
STUDY: CT ABDOMEN AND PELVIS WITH CONTRAST REASON FOR EXAM: Female, 57 years old. Nausea and vomiting since Thursday. RADIATION DOSAGE (If Supplied By Facility): CTDIvol = ( 9.71 ) mGy, DLP = ( 686.30 ) mGycm TECHNIQUE: Transaxial images were obtained from the dome of the diaphragm to the symphysis pubis without oral contrast. IV 100mL Isovue-300 was administered. Sagittal and coronal images were reconstructed. Individualized dose optimization techniques were used for this CT. COMPARISON: None. FINDINGS: The visualized lung bases are unremarkable. The visualized portions of the heart are within normal limits. There is a 1.6 cm x 1.4 cm enhancing nodule in the peripheral posterior aspect of the dome of the right lobe of the liver. This is suggestive of a small hemangioma. Normal gallbladder and extrahepatic biliary system. Normal spleen. Normal pancreas. There is symmetric enlargement of the adrenal glands suggesting adrenal hyperplasia. Normal right kidney. Normal left kidney. There is a small hiatal hernia. Findings suggestive of intussusception in 2 small bowel loops in the mid jejunum in the left midabdomen. The small bowel loops are mildly dilated. This is best seen on axial images 52 through 60. Mild degree of mucosal thickening of the sigmoid colon. The appendix is visualized and appears normal. There is scattered atherosclerotic calcification of the abdominal aorta, without a demonstrated aneurysm. Normal inferior vena cava. There are small retroperitoneal lymphadenopathy with enlarged nodes no greater than 10mm in the short axis diameter. Normal urinary bladder. There is a 4.8 cm by 4.5 cm cyst in the right ovary. There is a 1.8 cm follicle in the left ovary. The patient status post hysterectomy. Normal abdominal wall. Normal osseous structures. CT/Abdomen/Pelvis W IV Cont ONLY IMPRESSION: Findings suggestive of a 1.67 x 1.4 cm hemangioma in the posterior aspect of the dome of the right lobe of the liver. Bilateral adrenal hyperplasia. Findings suggestive of a intussusception of the mid jejunal loops in the left midabdomen as described. Small lymph nodes are seen in the root of the mesentery. Mild degree of mucosal thickening of the sigmoid colon. Right ovarian cyst. Small follicle in the left ovary. Electronically Signed: Gurpreet Servin MD at 10:14 EDT ,
--- NOTE | 2023-03-06 08:25 | EX.ED.DYSGE1 ---
HPI History of Present Illness Chief Complaint: Nausea/Vomiting Narrative Narrative: Patient represents with nausea and vomiting. I had seen her after she had started vomiting Thursday morning. She came in here later in the morning. She was treated with IV fluids and meds. Her potassium was low and it took a while to get potassium into her. She does have a history of low potassium. Her white count was up a little bit. But she really did not have pain or tenderness we did not do a scan. She was feeling better and went home. She states the next day she tried some soup that stayed down. Later she tried Gatorade and then started vomiting again. Of note, she did not fill her Zofran that was prescribed for her so she has not been taking anything for nausea at home. But she feels more dehydrated today. She still states she has no abdominal pain. She states she has hunger pains but no actual pain. Patient states she had a hysterectomy. She also had some other unknown surgery about 20 years ago for an unknown reason. She does not think it was an obstruction. She does not know if they removed any items. She is not sure how the surgery was done. She does not think it was through a scope. But the only incision I see is a Pfannenstiel incision on her abdomen. [facility] Medical History Hypertension Hypothyroidism Type 2 diabetes mellitus Home Medications metformin 1,000 mg tablet 1,000 mg PO BIDCM 06/01/18 [History Last Taken 03/04/23] pioglitazone 30 mg tablet 30 mg PO DAILY 06/01/18 [History Last Taken 03/04/23] empagliflozin 25 mg tablet (Jardiance) 25 mg PO DAILY 03/06/23 [History Last Taken 03/04/23] levothyroxine 25 mcg tablet 25 mcg PO DAILY 03/06/23 [History Last Taken 03/04/23] mifepristone 300 mg tablet (Korlym) 600 mg PO DAILY 03/06/23 [History Last Taken 03/04/23] rosuvastatin 20 mg tablet (Crestor) 20 mg PO DAILY 03/06/23 [History Last Taken 03/04/23] spironolactone 100 mg tablet 100 mg PO DAILY 03/06/23 [History Last Taken 03/04/23] valsartan 320 mg tablet 320 mg PO DAILY 03/06/23 [History Last Taken 03/04/23] Allergy/AdvReac Type Severity Reaction Status Date / Time clindamycin Allergy Mild Rash Verified 03/04/23 07:56 diclofenac [From Cataflam] Allergy Hives Verified 03/04/23 07:56 Penicillins Allergy Hives Verified 03/04/23 07:56 Social History household members: none Smoking Status: Never smoker substance use type: does not use ROS ROS ED ROS Narrative A complete review of systems was performed and is negative except as documented in the history of present illness. Some specific details below. Constitutional: No recent fevers or chills. She does have a sense of malaise. She reportedly has been exposed to COVID at the office. EYE: No visual complaints or pain. ENT: No difficulty swallowing. No swelling. No pain. No history of significant GERD. CV: No chest pain or palpitations. Respiratory: No dyspnea. No hemoptysis. No difficulty taking breaths. GI: Please see history of present illness. : No frequency dysuria or hematuria. Musculoskeletal: No recent trauma. No extremity pains. Skin: No rash. Nondiaphoretic. Neuro: No weakness or numbness. Endocrine: No polyuria or polydipsia. EXAM Physical Exam Narrative Exam Narrative: CONSTITUTIONAL: Patient is nontoxic in appearance. The patient looks comfortable. HEENT: No notable trauma. Mucous membranes do look rather dry. EYES: No conjunctival injection. No proptosis. CARDIOVASCULAR: Mildly tachycardic rate. Regular rhythm. No notable murmur. No JVD. RESPIRATORY: No respiratory distress. Breathing is unlabored. No wheezes. No rhonchi. No rales. No pain with a deep breath. GASTROINTESTINAL: Not distended. Bowel sounds are slightly decreased. No tenderness or mass. No guarding. No rebound. No bruit. GENITOURINARY: No tenderness over the bladder. No CVA tenderness. MUSCULOSKELETAL: Atraumatic. No peripheral edema. NEUROLOGICAL: Patient is alert and appropriate. No focal deficit noted. SKIN: No noted rashes. No diaphoresis. PSYCHIATRIC: Patient is calm. Mood is appropriate. Const Vital Signs: 03/06/23 08:11 03/06/23 10:07 Temperature 98 F Temperature Source Temporal Pulse Rate 108 H 106 H Respiratory Rate 25 H 12 Blood Pressure 171/101 H 190/104 H Blood Pressure Mean 124 132 Pulse Ox 97 97 Oxygen Delivery Method Room Air Room Air MDM MDM MDM Narrative Medical decision making narrative: Patient CBC shows slightly higher white count at 18.8 and rising hemoglobin is 17.3. This may be due to dehydration. Platelets were normal. Patient's electrolytes show more changes. She has a slight bump of her creatinine at 1.26. Potassium is low at 2.5. She has dropped bicarb and elevated anion gap. Glucose is 172. I still think most of these changes are due to dehydration and I do not think this represents DKA. Liver function tests show minimal elevation of alkaline phosphatase. Patient's lipase is normal. Patient's urine shows ketones but no convincing evidence of infection. We also reviewed her prior chart. It looks like she was here in January for some abdominal pain nausea vomiting type issues. Although she states this is not something she has had regularly may be these are just 2 separate episodes. She was found to have low potassium then. Blood pressure was also up. Knoop My independent interpretation of the patient's CT of the abdomen pelvis shows no sign of obstruction. No free air. There is a target shaped area in the left upper quadrant. Final reading from CT does define the is like the end cyst but no sign of obstruction. I discussed the case with surgeon, Dr. Vanessa. He was looking at the CAT scan as well is coming down to see the patient. He felt it was unlikely that patient has to independent his intussusceptions. This is likely due to some lymphadenopathy related to viral illness. We would like to avoid going in acutely for surgery especially since the patient's abdomen is not notably tender. I discussed case with hospitalist also. This patient is on Jardiance. She has slightly elevated glucose but she have did creased bicarb and elevated anion gap. This is some indication of DKA but a lot of this is ketosis dehydration. We will give her the 2 L of fluid here. Hospitalist stated they may start very low-dose insulin drip upstairs. Because of possibly needing an insulin drip, he will put her in the ICU so this can be addressed. Lab Data Attestation: I reviewed the patient's lab results. Labs: Laboratory Results - last 24 hr 03/06/23 03/06/23 08:31 08:50 WBC 18.8 H RBC 6.42 H Hgb 17.3 H Hct 53.8 H MCV 83.8 MCH 26.9 L MCHC 32.2 RDW Std Deviation 47.8 H RDW Coeff of [place]ingo 16.7 H Plt Count 330 MPV 9.9 Immature Gran % (Auto) 0.400 Neut % (Auto) 86.7 H Lymph % (Auto) 5.2 L [place] % (Auto) 7.4 Eos % (Auto) 0.1 Baso % (Auto) 0.2 Absolute Neuts (auto) 16.3 H Absolute Lymphs (auto) 0.98 Nucleated RBC % 0 Sodium 137 Potassium 2.5 L* Chloride 97 L Carbon Dioxide 19.0 L Anion Gap 21 H BUN 16 Creatinine 1.26 H Est GFR (MDRD) Af Amer 56 L Est GFR (MDRD) Non-Af 47 L BUN/Creatinine Ratio 12.7 Glucose 172 H Lactic Acid 2.1 H* Calcium 9.4 Total Bilirubin 0.90 AST 18 ALT 18 Alkaline Phosphatase 134 H Total Protein 7.9 Albumin 2.8 L Globulin 5.1 H Albumin/Globulin Ratio 0.5 L Lipase 24 Urine Color Yellow Urine Clarity Sl. Cloudy Urine pH 5.0 Ur Specific [place] 1.030 Urine Protein 500 H Urine Glucose (UA) 1000 H Urine Ketones 150 A* Urine Occult Blood 250 H Urine Nitrite Negative Urine Bilirubin Negative Urine Urobilinogen Normal Ur Leukocyte Esterase 25 H Urine RBC 10-25 SEEN Urine WBC 0-5 SEEN Ur Squamous Epith Cells 0-5 SEEN Urine Bacteria RARE Urine Mucus 0 SEEN Radiography Diagnostic Testing: Clinical Impression(s) from Imaging Studies Abdomen/Pelvis CT 03/06/23 08:23 IMPRESSION: Findings suggestive of a 1.67 x 1.4 cm hemangioma in the posterior aspect of the dome of the right lobe of the liver. Bilateral adrenal hyperplasia. Findings suggestive of a intussusception of the mid jejunal loops in the left midabdomen as described. Small lymph nodes are seen in the root of the mesentery. Mild degree of mucosal thickening of the sigmoid colon. Right ovarian cyst. Small follicle in the left ovary. Electronically Signed: Gurpreet Servin MD at 10:14 EDT , Discharge Plan Dx/Rx/DC Orders Clinical Impression: DKA (diabetic ketoacidosis), Nausea & vomiting, Intussusception, Dehydration Disposition Disposition: Acute Care [facility]
[2023-03-06] MEDS: 0.9% Normal Saline (1000mL) 2,000 ML 1000 ML IV (08:35)
[2023-03-06] MEDS: Ondansetron 4 MG/2 ML Vial IV ×2 (08:35→12:43)
[2023-03-06 08:43] LABS: Absolute Lymphocyte Count 0.98 X10^3/uL (0.83-4.51); Absolute Neutrophil Count 16.3 X10^3/uL (2.0-7.7); Basophil# 0.04 X10^3/uL; Basophil% 0.2 % (0-1); Eosinophil# 0.01 X10^3/uL; Eosinophils% 0.1 % (0-5); Hematocrit 53.8 % (37-47); Hemoglobin 17.3 g/dL (12.0-15.0); Lymphocyte # 0.98 X10^3/ul (0.83-4.51); Lymphocyte % 5.2 % (19-41); Mean Corp Hgb Conc 32.2 g/dL (32-36); Mean Corpuscular Hgb 26.9 pg (27.0-32.0); Mean Corpuscular Volume 83.8 fL (81-99); Mean Platelet Vol. 9.9 fl (6.2-12.0); Monocyte# 1.38 X10^3/uL; Monocyte% 7.4 % (0-10); NRBC Flagged by Analyzer 0 % (0-5); Neutrophil # 16.27 X10^3/uL (2.7-7.7); Neutrophil % 86.7 % (47-70); Platelet Count 330 K/mm3 (150-450); RBC Distribution Width CV 16.7 % (11.6-14.6); RBC Distribution Width SD 47.8 fl (35.1-43.9); Red Blood Count 6.42 M/mm3 (4.2-5.4); White Blood Count 18.8 K/mm3 (4.4-11.0)
[2023-03-06 08:54] LABS: Mucous, Urine 0 SEEN /hpf (<or=2+)
[2023-03-06 08:58] LABS: Color, Urine Yellow (Yellow); Glucose, Dipstick 1000 mg/dl (Normal); Leukocyte Esterase-Dipstick 25 /ul (Negative); Nitrite-Dipstick Negative (Negative); Occult Blood-Urine 250 /ul (Negative); Protein-Dipstick 500 mg/dl (Negative); Urine Bilirubin Dipstick Negative (Negative); Urine Clarity Sl. Cloudy (Clear); Urine Urobilinogen Normal (Normal)
[2023-03-06 08:59] LABS: Ketone-Dipstick 150 mg/dl (Negative)
[2023-03-06 09:02] LABS: Bacteria RARE /hpf (None Seen); Red Blood Cells-Urine 10-25 SEEN /hpf (0-5); Squamous Epithelial Cells - UA 0-5 SEEN /hpf (5-10); White Blood Cells 0-5 SEEN /hpf (0-5)
[2023-03-06 09:15] LABS: ALB/GLOB Ratio 0.5 RATIO (0.9-2.4); AST(SGOT) 18 U/L (15-37); Alanine Aminotransfer ALT/SGPT 18 U/L (13-56); Albumin, Serum 2.8 g/dL (3.2-5.0); Alkaline Phosphatase 134 U/L (45-117); Anion Gap 21 (5-15); BUN 16 mg/dL (7-18); BUN/Creat Ratio 12.7 RATIO (10-20); Calcium,Total 9.4 mg/dL (8.5-10.1); Chloride 97 mmol/L (98-107); Creatinine, Serum 1.26 mg/dL (0.55-1.02); EST Glomerular Filtration Rate 47 mL/min (>60); Est Glom Filt Rate - Afr Amer 56 mL/min (>60); Globulin 5.1 g/dL (2.2-4.2); Glucose 172 mg/dL (74-106); Lipase 24 U/L (13-75); Potassium 2.5 mmol/L (3.5-5.1); Protein, Total 7.9 g/dL (6.4-8.2); Sodium Level 137 mmol/L (136-145)
[2023-03-06 09:16] LABS: Lactic Acid 2.1 mmol/L (0.4-1.9)
[2023-03-06] MEDS: Potassium Chloride 10mEq/100mL 10 MEQ/100 ML IV.SOLN. 100 MEQ IV BOLUS ×8 (10:03→23:03)
--- NOTE | 2023-03-06 11:19 | CT_ITS ---
STUDY: CT ABDOMEN AND PELVIS WITHOUT CONTRAST REASON FOR EXAM: Female, 57 years old. Intussusception RADIATION DOSAGE (If Supplied By Facility): CTDIvol = ( 7.45 ) mGy, DLP = ( 401.87 ) mGycm TECHNIQUE: Transaxial images were obtained from the dome of the diaphragm to the symphysis pubis without oral contrast, and without intravenous contrast. Sagittal and coronal images were reconstructed. Individualized dose optimization techniques were used for this CT. COMPARISON: Comparison is made with prior study done earlier in the day. FINDINGS: Normal visualized stomach. There is no evidence of intussusception as compared to prior study. Normal colon. The appendix is the remainder of the examination is unchanged. CT/Abdomen/Pel W ORAL Cont Only IMPRESSION: No evidence of intussusception at this time. The remainder of the examination is unchanged. Electronically Signed: Gurpreet Servin MD at 13:38 EDT ,
--- NOTE | 2023-03-06 12:33 | PCM.HP.STD ---
HPI - General General Date of Admission: 03/06/23 Date of Service: 03/06/23 Chief Complaint: Persistent nausea vomiting from last Thursday morning. Abdominal pain HPI Narrative ARIANNA UPTON, is a 57 F who came to ED on Thursday morning about 2 days ago for severe nausea vomiting. She was given IV fluid for dehydration and potassium supplementation was done and sent home. She did not had abdominal pain on that day. She went home and then started again vomiting and nausea after she tried chicken soup. Has persistent vomiting for 2 days initially gastric and then bilious. She is still nauseous with dry heaving. She started having abdominal pain mainly like cramps.Her abdominal cramps is intermittent, varies 3-6/10 intensity and scribes as hunger pain mainly in mid abdomen. No exacerbating or relieving factor. She is not too much concerned about her abdominal pain. In ED, vitals reviewed blood pressure high 171/101, heart rate 100/min. Patient tachypneic but no hypoxia. Patient blood pressure during previous ED visits has also been high in systolic 200s to 221 and diastolic 90s to 100s. She states she is on antihypertensive medication valsartan [address] abdomen pelvis with IV contrast was done which shows findings suggestive of intussusception of mid jejunal loop left mid abdomen and a small lymph nodes in root of mesentery. Mild degree of mucosal thickening of sigmoid colon.Surgical consult requested by ER. Labs reviewed and consistent with DKA even with my glycemia 172. [facility] Medical History Hypertension Hypothyroidism Type 2 diabetes mellitus Home Medications metformin 1,000 mg tablet 1,000 mg PO BIDCM 06/01/18 [History Last Taken 03/04/23] pioglitazone 30 mg tablet 30 mg PO DAILY 06/01/18 [History Last Taken 03/04/23] empagliflozin 25 mg tablet (Jardiance) 25 mg PO DAILY 03/06/23 [History Last Taken 03/04/23] levothyroxine 25 mcg tablet 25 mcg PO DAILY 03/06/23 [History Last Taken 03/04/23] mifepristone 300 mg tablet (Korlym) 600 mg PO DAILY 03/06/23 [History Last Taken 03/04/23] rosuvastatin 20 mg tablet (Crestor) 20 mg PO DAILY 03/06/23 [History Last Taken 03/04/23] spironolactone 100 mg tablet 100 mg PO DAILY 03/06/23 [History Last Taken 03/04/23] valsartan 320 mg tablet 320 mg PO DAILY 03/06/23 [History Last Taken 03/04/23] Allergy/AdvReac Type Severity Reaction Status Date / Time clindamycin Allergy Mild Rash Verified 03/04/23 07:56 diclofenac [From Cataflam] Allergy Hives Verified 03/04/23 07:56 Penicillins Allergy Hives Verified 03/04/23 07:56 Social History household members: none Smoking Status: Never smoker substance use type: does not use ROS ROS Narrative Constitutional: Reports fatigue and weakness. Dehydrated and thirsty. No fever. HEENT: Reports systems reviewed and no addt'l complaints, except as documented. Denies URI symptoms including sinus pain,, sore throat, rhinorrhea or postnasal drip Respiratory/Chest: No acute shortness of breath or respiratory distress or wheezing. CVS: Denies chest pain pressure or tightness. Gastrointestinal: Persistent vomiting more than 10 times for 2 days. Nauseous. Denies coffee ground emesis, hematemesis or melena/hematochezia Genitourinary: Yellowish urine. Denies burning urination or new urinary tract symptoms Musculoskeletal: Denies acute joint pain or limited range of motion. No acute injury Neurologic: Denies seizure-like symptoms. No acute strokelike symptoms. skin: No ulcer. No rash Endocrinology: DM type II. Reports systems reviewed and no addt'l complaints, except as documented Hematologic/Lymphatic: Reports systems reviewed and no addt'l complaints, except as documented Rest 14 ROS are negative except as mentioned in HPI Vital Signs Vital Signs Vital Signs: 03/06/23 08:11 03/06/23 10:07 Temperature 98 F Temperature Source Temporal Pulse Rate 108 H 106 H Respiratory Rate 25 H 12 Blood Pressure 171/101 H 190/104 H Blood Pressure Mean 124 132 Pulse Ox 97 97 Oxygen Delivery Method Room Air Room Air Physical Exam Narrative General: Alert, Oriented x3, Cooperative very dehydrated HEENT: Atraumatic, PERRLA, EOMI, Normocephalic Oral: Oral mucosa very dry. No Gingival or Mucosal Lesions/ Ulcerations Neck: Supple, No JVD, Negative Carotid Bruits Lungs: Air entry diminished in bilateral lung bases. No crepitation/rhonchi Cardiovascular: Regular rate, Regular Rhythm, Normal S1, Normal S2, No murmurs Abdomen: Bowel Sounds Present, Soft, Non Tender, Non-Distended : No renal angle tenderness. No suprapubic tenderness. Extremities: No edema, Capillary Refill Less than 3 Seconds Skin: Lower skin turgor and dry. No rashes, No breakdown Musculoskeletal: No Tenderness to Palpation of Joints or Extremities ROM full and intact. Neurological: Cranial nerves II-XII grossly intact, DTR 2+/4. No acute focal neurological deficit. Psych/Mental Status: Flat affect. Results Lab / Micro Data 03/06/23 08:31 03/06/23 08:31 Labs: Laboratory Results - last 24 hr 03/06/23 08:31: WBC 18.8 H, RBC 6.42 H, Hgb 17.3 H, Hct 53.8 H, MCV 83.8, MCH 26.9 L, MCHC 32.2, RDW Std Deviation 47.8 H, RDW Coeff of [place] 16.7 H, Plt Count 330, MPV 9.9, Immature Gran % (Auto) 0.400, Neut % (Auto) 86.7 H, Lymph % (Auto) 5.2 L, [place] % (Auto) 7.4, Eos % (Auto) 0.1, Baso % (Auto) 0.2, Absolute Neuts (auto) 16.3 H, Absolute Lymphs (auto) 0.98, Nucleated RBC % 0, Sodium 137, Potassium 2.5 L*, Chloride 97 L, Carbon Dioxide 19.0 L, Anion Gap 21 H, BUN 16, Creatinine 1.26 H, Est GFR (MDRD) Af Amer 56 L, Est GFR (MDRD) Non-Af 47 L, BUN/Creatinine Ratio 12.7, Glucose 172 H, Lactic Acid 2.1 H*, Calcium 9.4, Total Bilirubin 0.90, AST 18, ALT 18, Alkaline Phosphatase 134 H, Total Protein 7.9, Albumin 2.8 L, Globulin 5.1 H, Albumin/Globulin Ratio 0.5 L, Lipase 24 03/06/23 08:50: Urine Color Yellow, Urine Clarity Sl. Cloudy, Urine pH 5.0, Ur Specific [place] 1.030, Urine Protein 500 H, Urine Glucose (UA) 1000 H, Urine Ketones 150 A*, Urine Occult Blood 250 H, Urine Nitrite Negative, Urine Bilirubin Negative, Urine Urobilinogen Normal, Ur Leukocyte Esterase 25 H, Urine RBC 10-25 SEEN, Urine WBC 0-5 SEEN, Ur Squamous Epith Cells 0-5 SEEN, Urine Bacteria RARE, Urine Mucus 0 SEEN Micro: Microbiology 03/06/23 08:49 Nasal Secretion SARS-CoV-2 Antigen (Rapid) - Final Radiology Impression Abdomen/Pelvis CT 03/06/23 08:23 IMPRESSION: Findings suggestive of a 1.67 x 1.4 cm hemangioma in the posterior aspect of the dome of the right lobe of the liver. Bilateral adrenal hyperplasia. Findings suggestive of a intussusception of the mid jejunal loops in the left midabdomen as described. Small lymph nodes are seen in the root of the mesentery. Mild degree of mucosal thickening of the sigmoid colon. Right ovarian cyst. Small follicle in the left ovary. Electronically Signed: Gurpreet Servin MD at 10:14 EDT , Assessment & Plan Assessment/Plan (1) DKA (diabetic ketoacidosis): QUALIFIERS: Diabetes mellitus type: type 2 Diabetes mellitus complication detail: without coma Qualified Code(s): E11.10 - Type 2 diabetes mellitus with ketoacidosis without coma (2) Intussusception: (3) Acute hypokalemia: PLAN: Plan This is a 57-year-old pleasant lady being admitted for multiple acute issues pertaining to persistent nausea vomiting and abdominal pain 1. DKA most likely due to empagliflozin complicated with metformin with history of diabetes mellitus type 2: Patient is being admitted in ICU. Her glucose in BMP is 172. Lactic acid 2.1. Bicarb 19.0, anion gap 21. Patient has leukocytosis consistent with DKA/inflammatory reaction. Hemoconcentration with hematocrit 53.8% increased from 03/04 labs. ABG 7.3 0/36/75 on room air. Total CO2 19 in ABG. Discussed with the ER physician and advised to continue normal saline bolus for 2 L and then will start on insulin drip low-dose 1 units/h. Patient needs vigorous rehydration before insulin drip. Monitor BMP every 4 hourly. Supportive treatment for nausea and vomiting. Keep patient NPO. Hold oral hypoglycemic agents including metformin, pioglitazone and empagliflozin. 2. Acute intussusception, radiological diagnosis, radiologically reduced: Patient is passing flatus and she had bowel movement yesterday well formed without blood or mucus. She does not have moderate or severe abdominal pain/tenderness or guarding. General surgery Dr. Vanessa saw the patient and we discussed. Nausea and vomiting may be from DKA or possible intussusception. Repeat CT abdomen with oral contrast was done which shows no evidence of intussusception as it looks like reduced. Contrast going in the jejunum to proximal ileum. Normal colon. We will monitor conservatively. I will leave surgical management for Dr. Vanessa. 3. Hypertensive urgency with essential primary hypertension: Patient blood pressure has been high during previous visits. Labetalol IV ordered. 4. Hypothyroidism: Patient on levothyroxine 25 mcg daily. If patient is allowed oral will resume it. Living will/advanced directive/end of life care: Patient does not have living will or advanced directive. Does not have designated power of ip attorney for health. After discussion of benefits/risks procedures involved with full code, DNR CC arrest and DNR CC, the patient opted for full code. Patient does want artificial life support including intubation, tube feed, ventilator and/chest compression, central venous catheter, vasopressor and DC shock if needed Total time spent in [id number] encounter in discussion of advanced directive 17 minutes. Microbiology Past 72 Hours 03/06/23 08:49 Nasal Secretion SARS-CoV-2 Antigen (Rapid) - Final Laboratory Results 03/06/23 08:31: WBC 18.8 H, RBC 6.42 H, Hgb 17.3 H, Hct 53.8 H, MCV 83.8, MCH 26.9 L, MCHC 32.2, RDW Std Deviation 47.8 H, RDW Coeff of [place] 16.7 H, Plt Count 330, MPV 9.9, Immature Gran % (Auto) 0.400, Neut % (Auto) 86.7 H, Lymph % (Auto) 5.2 L, [place] % (Auto) 7.4, Eos % (Auto) 0.1, Baso % (Auto) 0.2, Absolute Neuts (auto) 16.3 H, Absolute Lymphs (auto) 0.98, Nucleated RBC % 0, Sodium 137, Potassium 2.5 L*, Chloride 97 L, Carbon Dioxide 19.0 L, Anion Gap 21 H, BUN 16, Creatinine 1.26 H, Est GFR (MDRD) Af Amer 56 L, Est GFR (MDRD) Non-Af 47 L, BUN/Creatinine Ratio 12.7, Glucose 172 H, Lactic Acid 2.1 H*, Calcium 9.4, Total Bilirubin 0.90, AST 18, ALT 18, Alkaline Phosphatase 134 H, Total Protein 7.9, Albumin 2.8 L, Globulin 5.1 H, Albumin/Globulin Ratio 0.5 L, Lipase 24 03/06/23 08:50: Urine Color Yellow, Urine Clarity Sl. Cloudy, Urine pH 5.0, Ur Specific [place] 1.030, Urine Protein 500 H, Urine Glucose (UA) 1000 H, Urine Ketones 150 A*, Urine Occult Blood 250 H, Urine Nitrite Negative, Urine Bilirubin Negative, Urine Urobilinogen Normal, Ur Leukocyte Esterase 25 H, Urine RBC 10-25 SEEN, Urine WBC 0-5 SEEN, Ur Squamous Epith Cells 0-5 SEEN, Urine Bacteria RARE, Urine Mucus 0 SEEN 03/06/23 13:33: Specimen Type ART, Sample Site L Radial, pH 7.30 L, Bicarbonate Actual 17.7 L, Total CO2 19, Base Excess -9 L, O2 Saturation 94 L, ABG pCO2 36.0, ABG pO2 75, Demetri Test Positive, O2 Delivery Device Room Air, Vent Mode Not entered Charges/Coding Visit Charges Inpatient E&M: 29405 Init Hosp L3 Procedures Hospitalists Procedures: 72674 Advncd Care Plan 30 Min
[2023-03-06 12:36] LABS: Reflex Lactate? Y
[2023-03-06 13:38] LABS: Allen Test Positive; Base Excess -9 mmol/L (-2 to +2); Bicarbonate 17.7 mmol/L (22-26); Blood Gas Specimen Type ART; Mode Not entered; O2 Delivery Device Room Air; PO2 75 mmHG (75-100); SITE L Radial; SO2 94 % (95-99); Total Carbon Dioxide 19 mmol/L
[2023-03-06 14:12] LABS: Lactic Acid 1.2 mmol/L (0.4-1.9)
[2023-03-06 14:14] LABS: Bedside Glucose 135 mg/dL (74-106)
[2023-03-06 14:16] LABS: Osmolality, Serum 306 mOsm/KG (275-295)
[2023-03-06 14:18] LABS: Internal QC Validated? YES +Cl - CLEAR BKGD; Pregnancy, Serum, hCG Quali. NEGATIVE Negative
[2023-03-06] MEDS: Sodium Chloride 0.65% 1 SPRAY SPRAY.BTL 2 SPRAY NASAL (14:18)
[2023-03-06] MEDS: Enoxaparin 40 MG/0.4 ML Syringe SC (14:21)
[2023-03-06] MEDS: hydrALAZINE 20 MG/ML Vial 5 MG IV ×2 (14:21→21:00)
[2023-03-06 14:25] LABS: Anion Gap 17 (5-15); BUN 13 mg/dL (7-18); BUN/Creat Ratio 12.9 RATIO (10-20); Calcium,Total 8.5 mg/dL (8.5-10.1); Chloride 105 mmol/L (98-107); Creatinine, Serum 1.01 mg/dL (0.55-1.02); EST Glomerular Filtration Rate 60 mL/min (>60); Est Glom Filt Rate - Afr Amer 73 mL/min (>60); Estimated Creatinine Clearance 60.48 ml/min; Glucose 164 mg/dL (74-106); Magnesium 1.5 mg/dL (1.6-2.6); Phosphorus 3.4 mg/dL (2.5-4.9); Potassium 3.1 mmol/L (3.5-5.1); Sodium Level 141 mmol/L (136-145)
[2023-03-06] MEDS: proCHLORPERazine 10 MG/2 ML Vial 5 MG IV (14:27)
[2023-03-06] MEDS: Magnesium Sulfate 2 GM in Dextrose 5%-Water (100mL Bag) 100 ML IV (15:29)
[2023-03-06] MEDS: Insulin Lispro 100 UNIT in 0.9% Normal Saline (100mL Bag) 99 ML CONT INF (15:29)
[2023-03-06] MEDS: Potassium Chloride 40 MEQ in Dextrose 5%-Water (1000mL Bag) 1,000 ML 150 MEQ IV ×2 (15:30→22:00)
[2023-03-06 15:59] LABS: Bedside Glucose 160 mg/dL (74-106)
[2023-03-06 16:50] LABS: Bedside Glucose 209 mg/dL (74-106)
[2023-03-06 17:42] LABS: Anion Gap 17 (5-15); BUN 13 mg/dL (7-18); BUN/Creat Ratio 11.3 RATIO (10-20); Calcium,Total 8.4 mg/dL (8.5-10.1); Chloride 104 mmol/L (98-107); Creatinine, Serum 1.15 mg/dL (0.55-1.02); EST Glomerular Filtration Rate 52 mL/min (>60); Est Glom Filt Rate - Afr Amer 63 mL/min (>60); Estimated Creatinine Clearance 53.12 ml/min; Glucose 194 mg/dL (74-106); Potassium 2.9 mmol/L (3.5-5.1); Sodium Level 138 mmol/L (136-145)
[2023-03-06 17:51] LABS: Bedside Glucose 207 mg/dL (74-106)
[2023-03-06 19:01] LABS: Bedside Glucose 169 mg/dL (74-106)
[2023-03-06 20:25] LABS: Anion Gap 10 (5-15); BUN 15 mg/dL (7-18); BUN/Creat Ratio 10.7 RATIO (10-20); Calcium,Total 8.8 mg/dL (8.5-10.1); Chloride 105 mmol/L (98-107); EST Glomerular Filtration Rate 41 mL/min (>60); Est Glom Filt Rate - Afr Amer 50 mL/min (>60); Estimated Creatinine Clearance 43.63 ml/min; Glucose 167 mg/dL (74-106); Potassium 2.9 mmol/L (3.5-5.1); Sodium Level 140 mmol/L (136-145)
[2023-03-07] VITALS (11 sets, daily range): BP systolic 159–195; BP diastolic 54–83; PULSE 87–112; RESP 14–18; TEMP 36.6–37; O2SAT 94–97
[2023-03-07 00:26] LABS: Anion Gap 5 (5-15); BUN 13 mg/dL (7-18); BUN/Creat Ratio 10.4 RATIO (10-20); Calcium,Total 8.7 mg/dL (8.5-10.1); Chloride 105 mmol/L (98-107); Creatinine, Serum 1.25 mg/dL (0.55-1.02); EST Glomerular Filtration Rate 47 mL/min (>60); Est Glom Filt Rate - Afr Amer 57 mL/min (>60); Estimated Creatinine Clearance 48.87 ml/min; Glucose 148 mg/dL (74-106); Potassium 3.5 mmol/L (3.5-5.1); Sodium Level 138 mmol/L (136-145)
--- NOTE | 2023-03-07 00:37 | PCM.HOSP.N ---
Hospitalist Note Patient with anion gap closure x2. From discussion with nursing staff also patient with no intervention plans and cleared for intake per general surgery. We will transition patient off the insulin drip and given no A1c until a.m. we will start only low-dose long-acting overlap with drip discontinuation. We will transition to insulin sliding scale as well and allow an ADA diet as patient notes that she is hungry with no more nausea or emesis bouts.
[2023-03-07] MEDS: hydrALAZINE 20 MG/ML Vial 5 MG IV ×3 (01:11→21:35)
[2023-03-07] MEDS: Insulin Glargine-YFGN 100 UNIT/ML Pen 10 UNIT SC ×3 (01:15→21:36)
[2023-03-07 01:42] LABS: Bedside Glucose 141 mg/dL (74-106)
[2023-03-07 01:42] LABS: Bedside Glucose 147 mg/dL (74-106)
[2023-03-07 01:42] LABS: Bedside Glucose 142 mg/dL (74-106)
[2023-03-07 01:42] LABS: Bedside Glucose 166 mg/dL (74-106)
[2023-03-07] MEDS: Potassium Chloride 40 MEQ in Dextrose 5%-Water (1000mL Bag) 1,000 ML 150 MEQ IV (04:48)
[2023-03-07] MEDS: Levothyroxine 25 MCG TABLET PO (05:08)
[2023-03-07 05:16] LABS: Absolute Lymphocyte Count 0.99 X10^3/uL (0.83-4.51); Absolute Neutrophil Count 12.2 X10^3/uL (2.0-7.7); Basophil# 0.05 X10^3/uL; Basophil% 0.3 % (0-1); Eosinophil# 0.09 X10^3/uL; Eosinophils% 0.6 % (0-5); Hematocrit 47.2 % (37-47); Hemoglobin 14.9 g/dL (12.0-15.0); Lymphocyte # 0.99 X10^3/ul (0.83-4.51); Lymphocyte % 6.8 % (19-41); Mean Corp Hgb Conc 31.6 g/dL (32-36); Mean Corpuscular Hgb 26.7 pg (27.0-32.0); Mean Corpuscular Volume 84.6 fL (81-99); Mean Platelet Vol. 9.9 fl (6.2-12.0); Monocyte# 1.14 X10^3/uL; Monocyte% 7.9 % (0-10); NRBC Flagged by Analyzer 0 % (0-5); Neutrophil # 12.17 X10^3/uL (2.7-7.7); Platelet Count 279 K/mm3 (150-450); RBC Distribution Width CV 15.9 % (11.6-14.6); RBC Distribution Width SD 48.4 fl (35.1-43.9); Red Blood Count 5.58 M/mm3 (4.2-5.4); White Blood Count 14.5 K/mm3 (4.4-11.0)
[2023-03-07 05:32] LABS: ALB/GLOB Ratio 0.5 RATIO (0.9-2.4); AST(SGOT) 16 U/L (15-37); Alanine Aminotransfer ALT/SGPT 12 U/L (13-56); Albumin, Serum 2.3 g/dL (3.2-5.0); Alkaline Phosphatase 108 U/L (45-117); Anion Gap 13 (5-15); BUN 11 mg/dL (7-18); BUN/Creat Ratio 9.9 RATIO (10-20); Calcium,Total 8.8 mg/dL (8.5-10.1); Chloride 103 mmol/L (98-107); Creatinine, Serum 1.11 mg/dL (0.55-1.02); EST Glomerular Filtration Rate 54 mL/min (>60); Est Glom Filt Rate - Afr Amer 65 mL/min (>60); Estimated Creatinine Clearance 55.03 ml/min; Globulin 4.4 g/dL (2.2-4.2); Glucose 214 mg/dL (74-106); Magnesium 1.9 mg/dL (1.6-2.6); Potassium 3.4 mmol/L (3.5-5.1); Protein, Total 6.7 g/dL (6.4-8.2); Sodium Level 137 mmol/L (136-145)
[2023-03-07 05:40] LABS: Phosphorus 1.9 mg/dL (2.5-4.9)
--- NOTE | 2023-03-07 07:59 | PN.HOSP_ITS ---
Reason for Visit Reason for Visit: Diagnoses Type 2 diabetes mellitus with ketoacidosis without coma (03/06/23) Hypokalemia (03/06/23) Intussusception (03/06/23) Subjective Subjective Follow-up for DKA Objective Data Objective Data Vital Signs: Vital Signs Temp Pulse Resp BP Pulse Ox O2 Del Method 98.4 F 108 H 14 175/63 H 94 Room Air 03/07/23 05:00 03/07/23 05:09 03/07/23 05:00 03/07/23 05:09 03/07/23 05:00 03/07/23 05:00 Oxygen Delivery Method Room Air Weight: 162 lb 4.163 oz Body Mass Index (BMI) 25.4 Intake & Output: Intake and Output for Last 24 Hours 03/05/23 03/06/23 03/07/23 23:59 23:59 23:59 Intake Total 3791.26 / 3791.26 1124.75 / 1124.75 Output Total 600 / 600 0 / 0 Balance 3191.26 / 3191.26 1124.75 / 1124.75 Lab / Micro Data 03/07/23 05:05 03/07/23 05:05 Labs: Laboratory Results - last 24 hr 03/06/23 08:31: WBC 18.8 H, RBC 6.42 H, Hgb 17.3 H, Hct 53.8 H, MCV 83.8, MCH 26.9 L, MCHC 32.2, RDW Std Deviation 47.8 H, RDW Coeff of [place]ingo 16.7 H, Plt Count 330, MPV 9.9, Immature Gran % (Auto) 0.400, Neut % (Auto) 86.7 H, Lymph % (Auto) 5.2 L, [place] % (Auto) 7.4, Eos % (Auto) 0.1, Baso % (Auto) 0.2, Absolute Neuts (auto) 16.3 H, Absolute Lymphs (auto) 0.98, Nucleated RBC % 0, Sodium 137, Potassium 2.5 L*, Chloride 97 L, Carbon Dioxide 19.0 L, Anion Gap 21 H, BUN 16, Creatinine 1.26 H, Est GFR (MDRD) Af Amer 56 L, Est GFR (MDRD) Non-Af 47 L, BUN/Creatinine Ratio 12.7, Glucose 172 H, Lactic Acid 2.1 H*, Calcium 9.4, Total Bilirubin 0.90, AST 18, ALT 18, Alkaline Phosphatase 134 H, Total Protein 7.9, Albumin 2.8 L, Globulin 5.1 H, Albumin/Globulin Ratio 0.5 L, Lipase 24 03/06/23 08:50: Urine Color Yellow, Urine Clarity Sl. Cloudy, Urine pH 5.0, Ur Specific [place] 1.030, Urine Protein 500 H, Urine Glucose (UA) 1000 H, Urine Ketones 150 A*, Urine Occult Blood 250 H, Urine Nitrite Negative, Urine Bilirub in Negative, Urine Urobilinogen Normal, Ur Leukocyte Esterase 25 H, Urine RBC 10-25 SEEN, Urine WBC 0-5 SEEN, Ur Squamous Epith Cells 0-5 SEEN, Urine Bacteria RARE, Urine Mucus 0 SEEN 03/06/23 13:27: Lactic Acid 1.2 03/06/23 13:50: Sodium 141, Potassium 3.1 L, Chloride 105, Carbon Dioxide 19.0 L , Anion Gap 17 H, BUN 13, Creatinine 1.01, Estim Creat Clear Calc 60.48, Est GFR (MDRD) Af Amer 73, Est GFR (MDRD) Non-Af 60, BUN/Creatinine Ratio 12.9, Glucose 164 H, Serum Osmolality 306 H, Calcium 8.5, Phosphorus 3.4, Magnesium 1.5 L, Serum , Qual NEGATIVE, Acetone Level LARGE H 03/06/23 13:54: POC Glucose 135 H 03/06/23 15:29: POC Glucose 160 H 03/06/23 16:29: POC Glucose 209 H 03/06/23 16:30: Sodium 138, Potassium 2.9 L, Chloride 104, Carbon Dioxide 17.0 L , Anion Gap 17 H, BUN 13, Creatinine 1.15 H, Estim Creat Clear Calc 53.12, Est GFR (MDRD) Af Amer 63, Est GFR (MDRD) Non-Af 52 L, BUN/Creatinine Ratio 11.3, Glucose 194 H, Calcium 8.4 L 03/06/23 17:31: POC Glucose 207 H 03/06/23 18:38: POC Glucose 169 H 03/06/23 19:31: POC Glucose 166 H 03/06/23 20:00: Sodium 140, Potassium 2.9 L, Chloride 105, Carbon Dioxide 25.0, Anion Gap 10, BUN 15, Creatinine 1.40 H, Estim Creat Clear Calc 43.63, Est GFR (MDRD) Af Amer 50 L, Est GFR (MDRD) Non-Af 41 L, BUN/Creatinine Ratio 10.7, Glucose 167 H, Calcium 8.8 03/06/23 21:06: POC Glucose 147 H 03/06/23 23:02: POC Glucose 141 H 03/07/23 00:00: Sodium 138, Potassium 3.5, Chloride 105, Carbon Dioxide 28.0, Anion Gap 5, BUN 13, Creatinine 1.25 H, Estim Creat Clear Calc 48.87, Est GFR (MDRD) Af Amer 57 L, Est GFR (MDRD) Non-Af 47 L, BUN/Creatinine Ratio 10.4, Glucose 148 H, Calcium 8.7 03/07/23 01:14: POC Glucose 142 H 03/07/23 05:05: WBC 14.5 H, RBC 5.58 H, Hgb 14.9, Hct 47.2 H, MCV 84.6, MCH 26.7 L, MCHC 31.6 L, RDW Std Deviation 48.4 H, RDW Coeff of [place] 15.9 H, Plt Count 279, MPV 9.9, Immature Gran % (Auto) 0.400, Neut % (Auto) 84.0 H, Lymph % (Auto) 6.8 L, Clark % (Auto) 7.9, Eos % (Auto) 0.6, Baso % (Auto) 0.3, Absolute Neuts (auto) 12.2 H, Absolute Lymphs (auto) 0.99, Nucleated RBC % 0, Sodium 137, Potassium 3.4 L, Chloride 103, Carbon Dioxide 21.0, Anion Gap 13, BUN 11, Creatinine 1.11 H, Estim Creat Clear Calc 55.03, Est GFR (MDRD) Af Amer 65, Est GFR (MDRD) Non-Af 54 L, BUN/Creatinine Ratio 9.9 L, Glucose 214 H, Calcium 8.8, Phosphorus 1.9 L, Magnesium 1.9, Total Bilirubin 0.60, AST 16, ALT 12 L, Alkaline Phosphatase 108, Total Protein 6.7, Albumin 2.3 L, Globulin 4.4 H, Albumin/Globulin Ratio 0.5 L Micro: Microbiology 03/06/23 08:49 Nasal Secretion SARS-CoV-2 Antigen (Rapid) - Final ABG Data ABG results: ABG 03/06/23 13:33 Specimen Type ART Sample Site L Radial pH 7.30 L Bicarbonate Actual 17.7 L Total CO2 19 Base Excess -9 L O2 Saturation 94 L ABG pCO2 36.0 ABG pO2 75 Demetri Test Positive O2 Delivery Device Room Air Vent Mode Not entered Radiography Diagnostic Testing: Radiology Impression Abdomen/Pelvis CT 03/06/23 08:23 IMPRESSION: Findings suggestive of a 1.67 x 1.4 cm hemangioma in the posterior aspect of the dome of the right lobe of the liver. Bilateral adrenal hyperplasia. Findings suggestive of a intussusception of the mid jejunal loops in the left midabdomen as described. Small lymph nodes are seen in the root of the mesentery. Mild degree of mucosal thickening of the sigmoid colon. Right ovarian cyst. Small follicle in the left ovary. Electronically Signed: Gurpreet Servin MD at 10:14 EDT , Abdomen CT 03/06/23 11:19 IMPRESSION: No evidence of intussusception at this time. The remainder of the examination is unchanged. Electronically Signed: Gurpreet Servin MD at 13:38 EDT , Physical Exam Narrative Seen and examined. General: Alert, Oriented x3, Cooperative, less thirsty. Mild dehydration HEENT: Atraumatic, PERRLA, EOMI, Normocephalic Oral: Oral mucosa moist. No Gingival or Mucosal Lesions/ Ulcerations Neck: Supple, No JVD, Negative Carotid Bruits Lungs: Air entry diminished in bilateral lung bases. No crepitation/rhonchi Cardiovascular: Regular rate, Regular Rhythm, Normal S1, Normal S2, No murmurs Abdomen: Bowel Sounds Present, Soft, Non Tender, Non-Distended. : No renal angle tenderness. No suprapubic tenderness. Extremities: No edema, Capillary Refill Less than 3 Seconds Skin: Lower skin turgor and dry. No rashes, No breakdown Musculoskeletal: No Tenderness to Palpation of Joints or Extremities ROM full and intact. Neurological: Cranial nerves II-XII grossly intact, DTR 2+/4. No acute focal neurological deficit. Psych/Mental Status: Flat affect. Assessment & Plan Assessment/Plan (1) DKA (diabetic ketoacidosis): QUALIFIERS: Diabetes mellitus type: type 2 Diabetes mellitus complication detail: without coma Qualified Code(s): E11.10 - Type 2 diabetes mellitus with ketoacidosis without coma (2) Intussusception: (3) Acute hypokalemia: PLAN: Plan This is a 57-year-old pleasant lady being admitted for multiple acute issues pertaining to persistent nausea vomiting and abdominal pain 1. DKA most likely due to empagliflozin complicated with metformin with history of diabetes mellitus type 2: Patient is being admitted in ICU. Her glucose in BMP is 172. Lactic acid 2.1. Bicarb 19.0, anion gap 21. Patient has leukocytosis consistent with DKA/inflammatory reaction. Hemoconcentration with hematocrit 53.8% increased from 03/04 labs. ABG 7.3 on room air. Total CO2 19 in ABG. Discussed with the ER physician and advised to continue normal saline bolus for 2 L and then will start on insulin drip low-dose 1 units/h. Patient needs vigorous rehydration before insulin drip. Monitor BMP every 4 hourly. Supportive treatment for nausea and vomiting. Keep patient NPO. Hold oral hypoglycemic agents including metformin, pioglitazone and empagliflozin. 03/07: Anion gap closed x2. BUN/creatinine also improved. Mild hypokalemia K3.4. Mild hypophosphatemia, phosphorus 1.9. Serum magnesium normal. Bicarb 21, anion gap 13. Sodium 137. Continue IV fluid D5W with KCl at 100 mL per hour with scheduled Lantus insulin and sliding scale Humalog insulin. Glucose runs around 148, 167 and 142. A1c pending. 2. Acute intussusception, radiological diagnosis, radiologically reduced: Patient is passing flatus and she had bowel movement yesterday well formed without blood or mucus. She does not have moderate or severe abdominal pain/tenderness or guarding. General surgery Dr. Vanessa saw the patient and we discussed. Nausea and vomiting may be from DKA or possible intussusception. Repeat CT abdomen with oral contrast was done which shows no evidence of intuss usception as it looks like reduced. Contrast going in the jejunum to proximal ileum. Normal colon. We will monitor conservatively. I will leave surgical management for Dr. Vanessa. 03/07: Discussed with Dr. Vanessa will start her on a soft diabetic diet 3. Hypertensive urgency with essential primary hypertension: Patient blood pressure has been high during ED previous visits. Labetalol IV ordered. 03/07:Patient is on as needed hydralazine IV and insulin glargine and is scheduled losartan 100 mg daily. Second agent carvedilol 12.5 mg ordered. Blood pressure is still systolic in 170s. 4. Hypothyroidism: Patient on levothyroxine 25 mcg daily. If patient is allowed oral will resume it. 03/07: Advised TSH and free T4 as an outpatient as thyroid function test might come altered because of possibility of a euthyroid sick syndrome. Living will/advanced directive/end of life care: Patient does not have living will or advanced directive. Does not have designated power of claims attorney for health. After discussion of benefits/risks procedures involved with full code, DNR CC arrest and DNR CC, the patient opted for full code. Patient does want artificial life support including intubation, tube feed, ventilator and/chest compression, central venous catheter, vasopressor and DC shock if needed Charges/Coding Visit Charges Inpatient E&M: 09457 [facility] Hosp L3
[2023-03-07] MEDS: Insulin Lispro 100 UNIT/ML INSULN.PEN SC ×4 (08:09→21:36)
[2023-03-07] MEDS: Losartan Potassium 100 MG Tablet PO (08:09)
[2023-03-07 08:31] LABS: Bedside Glucose 226 mg/dL (74-106)
--- NOTE | 2023-03-07 08:48 | CON.PCM.SX_ITS ---
Assessment & Plan Assessment/Plan (1) Intussusception: PLAN: I was originally consulted due to small bowel intussusception in 2 areas. The patient was also found to be in DKA and admitted to medicine. I repeat his CT scan with oral contrast that did not show any intussusception. The intussusception was likely a transient benign event that was caught on CT scan likely due to enlarged lymph nodes from viral illness. She does not have any localized specific pain and the repeat CT scan showed no intussusception. I will sign off. Please reconsult if needed. Royal Vanessa MD Pager: [facility] [address] [place] [address], [address] [place] [address] Office: HPI Consult Data Date of Consult: 03/07/23 HPI Narrative HPI Narrative: ARIANNA UPTON, is a 57 F who presents with abdominal pain and nausea and vomiting. Patient was recently in the hospital and was sent home and came back with no change in her nausea or vomiting. She does not report any specific abdominal pain just generalized. [facility] Medical History Hypertension Hypothyroidism Type 2 diabetes mellitus Home Medications metformin 1,000 mg tablet 1,000 mg PO BIDCM 06/01/18 [History Last Taken 03/04/23] pioglitazone 30 mg tablet 30 mg PO DAILY 06/01/18 [History Last Taken 03/04/23] empagliflozin 25 mg tablet (Jardiance) 25 mg PO DAILY 03/06/23 [History Last Taken 03/04/23] levothyroxine 25 mcg tablet 25 mcg PO DAILY 03/06/23 [History Last Taken 03/04/23] mifepristone 300 mg tablet (Korlym) 600 mg PO DAILY 03/06/23 [History Last Taken 03/04/23] rosuvastatin 20 mg tablet (Crestor) 20 mg PO DAILY 03/06/23 [History Last Taken 03/04/23] spironolactone 100 mg tablet 100 mg PO DAILY 03/06/23 [History Last Taken 03/04/23] valsartan 320 mg tablet 320 mg PO DAILY 03/06/23 [History Last Taken 03/04/23] Allergy/AdvReac Type Severity Reaction Status Date / Time clindamycin Allergy Mild Rash Verified 03/04/23 07:56 diclofenac [From Cataflam] Allergy Hives Verified 03/04/23 07:56 Penicillins Allergy Hives Verified 03/04/23 07:56 Social History household members: none Smoking Status: Never smoker substance use type: does not use ROS Constitutional Constitutional: Reports fatigue; Denies anorexia or chills Cardiovascular Cardiovascular: Denies chest pain Respiratory/Chest Respiratory/Chest: Denies cough or dyspnea Gastrointestinal Gastrointestinal: Reports abdominal pain, nausea and vomiting; Denies con stipation or diarrhea Musculoskeletal Musculoskeletal: Denies abnormal gait Integumentary Integumentary: Denies jaundice Endocrine Endocrinology: Denies flushing Physical Exam Const alert and oriented x3 HEENT normocephalic Eyes PERRL Resp normal respiratory effort Cardio Rate: regular rate Rhythm: regular rhythm GI soft to palpation and non-tender Extremity normal to inspection Neuro CN's II-XII intact bilaterally Lab / Micro Data 03/07/23 05:05 03/07/23 05:05 Labs: Laboratory Results - last 24 hr 03/06/23 08:31: Sodium 137, Potassium 2.5 L*, Chloride 97 L, Carbon Dioxide 19.0 L, Anion Gap 21 H, BUN 16, Creatinine 1.26 H, Est GFR (MDRD) Af Amer 56 L, Est GFR (MDRD) Non-Af 47 L, BUN/Creatinine Ratio 12.7, Glucose 172 H, Lactic Acid 2.1 H*, Calcium 9.4, Total Bilirubin 0.90, AST 18, ALT 18, Alkaline Phosphatase 134 H, Total Protein 7.9, Albumin 2.8 L, Globulin 5.1 H, Albumin/Globulin Ratio 0.5 L, Lipase 24 03/06/23 08:50: Urine Color Yellow, Urine Clarity Sl. Cloudy, Urine pH 5.0, Ur Specific [place] 1.030, Urine Protein 500 H, Urine Glucose (UA) 1000 H, Urine Ketones 150 A*, Urine Occult Blood 250 H, Urine Nitrite Negative, Urine Bilirubin Negative, Urine Urobilinogen Normal, Ur Leukocyte Esterase 25 H, Urine RBC 10-25 SEEN, Urine WBC 0-5 SEEN, Ur Squamous Epith Cells 0-5 SEEN, Urine B acteria RARE, Urine Mucus 0 SEEN 03/06/23 13:27: Lactic Acid 1.2 03/06/23 13:50: Sodium 141, Potassium 3.1 L, Chloride 105, Carbon Dioxide 19.0 L , Anion Gap 17 H, BUN 13, Creatinine 1.01, Estim Creat Clear Calc 60.48, Est GFR (MDRD) Af Amer 73, Est GFR (MDRD) Non-Af 60, BUN/Creatinine Ratio 12.9, Glucose 164 H, Serum Osmolality 306 H, Calcium 8.5, Phosphorus 3.4, Magnesium 1.5 L, Serum , Qual NEGATIVE, Acetone Level LARGE H 03/06/23 13:54: POC Glucose 135 H 03/06/23 15:29: POC Glucose 160 H 03/06/23 16:29: POC Glucose 209 H 03/06/23 16:30: Sodium 138, Potassium 2.9 L, Chloride 104, Carbon Dioxide 17.0 L , Anion Gap 17 H, BUN 13, Creatinine 1.15 H, Estim Creat Clear Calc 53.12, Est GFR (MDRD) Af Amer 63, Est GFR (MDRD) Non-Af 52 L, BUN/Creatinine Ratio 11.3, Glucose 194 H, Calcium 8.4 L 03/06/23 17:31: POC Glucose 207 H 03/06/23 18:38: POC Glucose 169 H 03/06/23 19:31: POC Glucose 166 H 03/06/23 20:00: Sodium 140, Potassium 2.9 L, Chloride 105, Carbon Dioxide 25.0, Anion Gap 10, BUN 15, Creatinine 1.40 H, Estim Creat Clear Calc 43.63, Est GFR (MDRD) Af Amer 50 L, Est GFR (MDRD) Non-Af 41 L, BUN/Creatinine Ratio 10.7, Glucose 167 H, Calcium 8.8 03/06/23 21:06: POC Glucose 147 H 03/06/23 23:02: POC Glucose 141 H 03/07/23 00:00: Sodium 138, Potassium 3.5, Chloride 105, Carbon Dioxide 28.0, Anion Gap 5, BUN 13, Creatinine 1.25 H, Estim Creat Clear Calc 48.87, Est GFR (MDRD) Af Amer 57 L, Est GFR (MDRD) Non-Af 47 L, BUN/Creatinine Ratio 10.4, Glucose 148 H, Calcium 8.7 03/07/23 01:14: POC Glucose 142 H 03/07/23 05:05: WBC 14.5 H, RBC 5.58 H, Hgb 14.9, Hct 47.2 H, MCV 84.6, MCH 26.7 L, MCHC 31.6 L, RDW Std Deviation 48.4 H, RDW Coeff of Domingo 15.9 H, Plt Count 279, MPV 9.9, Immature Gran % (Auto) 0.400, Neut % (Auto) 84.0 H, Lymph % (Auto) 6.8 L, [place] % (Auto) 7.9, Eos % (Auto) 0.6, Baso % (Auto) 0.3, Absolute Neuts (auto) 12.2 H, Absolute Lymphs (auto) 0.99, Nucleated RBC % 0, Sodium 137, Potassium 3.4 L, Chloride 103, Carbon Dioxide 21.0, Anion Gap 13, BUN 11, Creatinine 1.11 H, Estim Creat Clear Calc 55.03, Est GFR (MDRD) Af Amer 65, Est GFR (MDRD) Non-Af 54 L, BUN/Creatinine Ratio 9.9 L, Glucose 214 H, Calcium 8.8, Phosphorus 1.9 L, Magnesium 1.9, Total Bilirubin 0.60, AST 16, ALT 12 L, Alkaline Phosphatase 108, Total Protein 6.7, Albumin 2.3 L, Globulin 4.4 H, Albumin/Globulin Ratio 0.5 L 03/07/23 07:55: POC Glucose 226 H Micro: Microbiology 03/06/23 08:49 Nasal Secretion SARS-CoV-2 Antigen (Rapid) - Final ABG Data ABG results: ABG 03/06/23 13:33 Specimen Type ART Sample Site L Radial pH 7.30 L Bicarbonate Actual 17.7 L Total CO2 19 Base Excess -9 L O2 Saturation 94 L ABG pCO2 36.0 ABG pO2 75 Deemtri Test Positive O2 Delivery Device Room Air Vent Mode Not entered Radiology Impression Abdomen/Pelvis CT 03/06/23 08:23 IMPRESSION: Findings suggestive of a 1.67 x 1.4 cm hemangioma in the posterior aspect of the dome of the right lobe of the liver. Bilateral adrenal hyperplasia. Findings suggestive of a intussusception of the mid jejunal loops in the left midabdomen as described. Small lymph nodes are seen in the root of the mesentery. Mild degree of mucosal thickening of the sigmoid colon. Right ovarian cyst. Small follicle in the left ovary. Electronically Signed: Gurpreet Servin MD at 10:14 EDT , Abdomen CT 03/06/23 11:19 IMPRESSION: No evidence of intussusception at this time. The remainder of the examination is unchanged. Electronically Signed: Gurpreet Servin MD at 13:38 EDT ,
[2023-03-07] MEDS: Ondansetron 4 MG/2 ML Vial IV (08:53)
[2023-03-07 08:58] LABS: Hemoglobin A1c 7.9 % (3.8-5.6)
[2023-03-07] MEDS: Na Biphos/Potassium Phosphate PACKET 1 PACKET PO ×3 (09:40→21:36)
[2023-03-07] MEDS: Carvedilol 12.5 MG Tablet PO ×2 (09:40→16:56)
[2023-03-07] MEDS: Enoxaparin 40 MG/0.4 ML Syringe SC (09:42)
[2023-03-07] MEDS: Glucerna Shake 120 ML LIQUID PO ×2 (11:36→16:56)
[2023-03-07 11:55] LABS: Bedside Glucose 217 mg/dL (74-106)
[2023-03-07] MEDS: Potassium Chloride 40 MEQ in Dextrose 5%-Water (1000mL Bag) 1,000 ML 100 MEQ IV (14:24)
--- NOTE | 2023-03-07 15:40 | CASEMGMT ---
RN SP ELECTRONIC DRAFTER CM to room to meet with patient for initial transition planning/care coordination assessment. RN SP introduced self and role at [facility].? Pt voices understanding and consents to assessment at this time.? Pt resting in bed in no distress at this time.? Pt is A/O at this time and answers all questions appropriately.?? Care providers, pharmacy, and demographics verified/updated at this time. PCP: Dr Gould Specialists: none Preferred Pharmacy:[facility] Retail Insurance: MMO Prescription Benefit:? Pt states she does not think she has Rx benefits, but she is not certain. Living Will/HPOA:? Pt does not currently have LW/HCPOA and would like to complete. SW, Vianey, made aware. Pt made aware, if SW unable to complete this w/her before she is discharged, that she can schedule appt w/SW after discharge to complete. LNOK: Father is living. No biological children. One brother. Sis-in-law, Norma. Friend, Laquita. Living Arrangements: Lives alone in one-story home w/no steps to enter. Independent. Works full-time. Transportation: Pt states drives self and states no transportation concerns at this time.? DME: States has the following DME:? Dexcom CGM system w/supplies. Also has a glucometer. States she has all meds/insulins needed. ?Pt states no need for further DME at this time.? HHC/SNF: No hx of either. No needs identified. Pt wishes to return home and states has no concerns with going home at time of discharge.? CM to follow for any further discharge planning/needs.? Pt voices no further concerns/needs at this time.? Advised pt to ask for CM if any further questions/concerns/needs arise.? Voices understanding. PLAN: ?Home Follow for cost of medications @ discharge, as pt states she does not think she has Rx benefits. Beto GARCIA RN, CM
[2023-03-07 16:29] LABS: Bedside Glucose 203 mg/dL (74-106)
[2023-03-07] MEDS: 0.9% Saline Lock 10 ML Syringe IV (21:35)
[2023-03-07 21:46] LABS: Bedside Glucose 205 mg/dL (74-106)
[2023-03-08] VITALS (7 sets, daily range): BP systolic 142–180; BP diastolic 61–90; PULSE 67–103; RESP 16–18; TEMP 36.4–36.7; O2SAT 94–96; BMI 26.2
[2023-03-08] MEDS: Potassium Chloride 40 MEQ in Dextrose 5%-Water (1000mL Bag) 1,000 ML 100 MEQ IV ×2 (01:31→12:09)
[2023-03-08] MEDS: ChlorproMAZINE 25 MG Tablet PO ×2 (01:31→22:04)
[2023-03-08] MEDS: hydrALAZINE 20 MG/ML Vial 5 MG IV (01:35)
[2023-03-08] MEDS: 0.9% Saline Lock 10 ML Syringe IV (01:35)
[2023-03-08] MEDS: Levothyroxine 25 MCG TABLET PO (06:48)
[2023-03-08] MEDS: Insulin Lispro 100 UNIT/ML INSULN.PEN SC ×4 (06:48→21:47)
[2023-03-08] MEDS: Na Biphos/Potassium Phosphate PACKET 1 PACKET PO ×2 (06:48→21:47)
[2023-03-08 07:14] LABS: Bedside Glucose 205 mg/dL (74-106)
[2023-03-08 08:07] LABS: Absolute Lymphocyte Count 0.84 X10^3/uL (0.83-4.51); Absolute Neutrophil Count 8.5 X10^3/uL (2.0-7.7); Basophil# 0.02 X10^3/uL; Basophil% 0.2 % (0-1); Eosinophil# 0.15 X10^3/uL; Eosinophils% 1.5 % (0-5); Hematocrit 47.1 % (37-47); Hemoglobin 15.2 g/dL (12.0-15.0); Lymphocyte # 0.84 X10^3/ul (0.83-4.51); Lymphocyte % 8.2 % (19-41); Mean Corp Hgb Conc 32.3 g/dL (32-36); Mean Corpuscular Hgb 26.7 pg (27.0-32.0); Mean Corpuscular Volume 82.6 fL (81-99); Mean Platelet Vol. 10.3 fl (6.2-12.0); Monocyte# 0.68 X10^3/uL; Monocyte% 6.7 % (0-10); NRBC Flagged by Analyzer 0 % (0-5); Neutrophil # 8.49 X10^3/uL (2.7-7.7); Neutrophil % 83.1 % (47-70); Platelet Count 289 K/mm3 (150-450); RBC Distribution Width SD 47.4 fl (35.1-43.9); White Blood Count 10.2 K/mm3 (4.4-11.0)
[2023-03-08 08:32] LABS: Anion Gap 11 (5-15); BUN 8 mg/dL (7-18); BUN/Creat Ratio 10.8 RATIO (10-20); Chloride 101 mmol/L (98-107); Creatinine, Serum 0.74 mg/dL (0.55-1.02); EST Glomerular Filtration Rate 86 mL/min (>60); Est Glom Filt Rate - Afr Amer 104 mL/min (>60); Estimated Creatinine Clearance 82.55 ml/min; Glucose 200 mg/dL (74-106); Potassium 3.7 mmol/L (3.5-5.1); Sodium Level 135 mmol/L (136-145)
--- NOTE | 2023-03-08 08:38 | PN.HOSP_ITS ---
Subjective Subjective No issues overnight Objective Data Objective Data Vital Signs: Vital Signs Temp Pulse Resp BP Pulse Ox O2 Del Method 98.1 F 102 H 16 178/64 H 95 Room Air 03/08/23 06:35 03/08/23 06:35 03/08/23 06:35 03/08/23 06:35 03/08/23 07:29 03/08/23 07:29 Oxygen Delivery Method Room Air Weight: 166 lb 14.239 oz Body Mass Index (BMI) 26.2 Intake & Output: Intake and Output for Last 24 Hours 03/07/23 03/08/23 03/09/23 04:59 03:59 03:59 Intake Total 150 / 150 Output Total Balance 150 / 150 Lab / Micro Data 03/08/23 06:40 03/08/23 06:40 Labs: Laboratory Results - last 24 hr 03/07/23 11:31: POC Glucose 217 H 03/07/23 16:04: POC Glucose 203 H 03/07/23 21:23: POC Glucose 205 H 03/08/23 06:40: WBC 10.2, RBC 5.70 H, Hgb 15.2 H, Hct 47.1 H, MCV 82.6, MCH 26.7 L, MCHC 32.3, RDW Std Deviation 47.4 H, RDW Coeff of Domingo 16.0 H, Plt Count 289, MPV 10.3, Immature Gran % (Auto) 0.300, Neut % (Auto) 83.1 H, Lymph % (Auto) 8.2 L, [place] % (Auto) 6.7, Eos % (Auto) 1.5, Baso % (Auto) 0.2, Absolute Neuts (auto) 8.5 H, Absolute Lymphs (auto) 0.84, Nucleated RBC % 0, Sodium 135 L, Potassium 3.7, Chloride 101, Carbon Dioxide 23.0, Anion Gap 11, BUN 8, Creatinine 0.74, Estim Creat Clear Calc 82.55, Est GFR (MDRD) Af Amer 104, Est GFR (MDRD) Non-Af 86, BUN/Creatinine Ratio 10.8, Glucose 200 H, Calcium 9.0 03/08/23 06:42: POC Glucose 205 H Micro: Microbiology 03/06/23 08:49 Nasal Secretion SARS-CoV-2 Antigen (Rapid) - Final Physical Exam Narrative General: Alert, Oriented x3, Cooperative, No apparent distress HEENT: Atraumatic, PERRLA, EOMI, Normocephalic Oral: Moist Mucosa Neck: Supple, No JVD Lungs: Diminished, Normal air movement, No rhonchi, No wheeze, No rales Cardiovascular: Regular rate, Regular Rhythm, Normal S1, Normal S2, No murmurs Abdomen: Soft, Non Tender, Non-Distended, No Hepato-splenomegaly Extremities: No edema, Capillary Refill Less than 3 Seconds Skin: No rashes, No breakdown Musculoskeletal: No Tenderness to Palpation of Joints or Extremities Neurological: Cranial nerves II-XII grossly intact, Motor Exam 5/5 strength throughout, Sensory exam intact to light touch and pain Psych/Mental Status: Flat Assessment & Plan Assessment/Plan (1) DKA (diabetic ketoacidosis): QUALIFIERS: Diabetes mellitus complication detail: without coma Diabetes mellitus type: type 2 Qualified Code(s): E11.10 - Type 2 diabetes mellitus with ketoacidosis without coma (2) Intussusception: (3) Acute hypokalemia: PLAN: Plan 1. DKA most likely due to empagliflozin complicated with metformin with history of diabetes mellitus type 2: Patient is being admitted in ICU. Her glucose in BMP is 172. Lactic acid 2.1. Bicarb 19.0, anion gap 21. Patient has leukocytosis consistent with DKA/inflammatory reaction. Hemoconcentration with hematocrit 53.8% increased from 03/04 labs. ABG 7.3 0/36/75 on room air. Total CO2 19 in ABG. Discussed with the ER physician and advised to continue normal saline bolus for 2 L and then will start on insulin drip low-dose 1 units/h. Patient needs vigorous rehydration before insulin drip. Monitor BMP every 4 hourly. Supportive treatment for nausea and vomiting. Keep patient NPO. Hold oral hypoglycemic agents including metformin, pioglitazone and empagliflozin. 03/07: Anion gap closed x2. BUN/creatinine also improved. Mild hypokalemia K3.4. Mild hypophosphatemia, phosphorus 1.9. Serum magnesium normal. Bicarb 21, anion gap 13. Sodium 137. Continue IV fluid D5W with KCl at 100 mL per hour with scheduled Lantus insulin and sliding scale Humalog insulin. Glucose runs around 148, 167 and 142. A1c pending. 03/08/2023: Awaiting lab work 2. Acute intussusception, radiological diagnosis, radiologically reduced: Patient is passing flatus and she had bowel movement yesterday well formed with out blood or mucus. She does not have moderate or severe abdominal pain/tenderness or guarding. General surgery Dr. Vanessa saw the patient and we discussed. Nausea and vomiting may be from DKA or possible intussusception. Repeat CT abdomen with oral contrast was done which shows no evidence of intussusception as it looks like reduced. Contrast going in the jejunum to proximal ileum. Normal colon. We will monitor conservatively. I will leave surgical management for Dr. Vanessa. 03/07: Discussed with Dr. Vanessa will start her on a soft diabetic diet 03/08/2023: No intussusception, surgery has signed off 3. Hypertensive urgency with essential primary hypertension: Patient blood pressure has been high during ED previous visits. Labetalol IV ordered. 03/07:Patient is on as needed hydralazine IV and insulin glargine and is scheduled losartan 100 mg daily. Second agent carvedilol 12.5 mg ordered. Blood pressure is still systolic in 170s. 03/08/2023: We will start on Norvasc 4. Hypothyroidism: Patient on levothyroxine 25 mcg daily. If patient is allowed oral will resume it. 03/07: Advised TSH and free T4 as an outpatient as thyroid function test might come altered because of possibility of a euthyroid sick syndrome. DVT: Lovenox Charges/Coding Visit Charges Inpatient E&M: 44354 Subs Hosp L2
[2023-03-08] MEDS: Insulin Glargine-YFGN 100 UNIT/ML Pen 10 UNIT SC ×2 (08:50→21:47)
[2023-03-08] MEDS: Enoxaparin 40 MG/0.4 ML Syringe SC (08:50)
[2023-03-08] MEDS: Losartan Potassium 100 MG Tablet PO (08:50)
[2023-03-08] MEDS: Carvedilol 12.5 MG Tablet PO ×2 (08:51→16:32)
[2023-03-08] MEDS: Glucerna Shake 120 ML LIQUID PO (08:54)
[2023-03-08] MEDS: amLODIPine 10 MG Tablet PO (08:55)
[2023-03-08 12:28] LABS: Bedside Glucose 239 mg/dL (74-106)
--- NOTE | 2023-03-08 14:44 | NURSING ---
Patient's family in and spoke with this RN in the waiting area and voiced concerns regarding patient's living arrangements. They state she has two dogs and they went to her house to clean up and the house was covered in dog urine and feces and did not appear to be in a very clean condition. They also report that they are not sure that she is taking very good care of herself in regards to taking her medications as prescribed. They report concerns with her mental status. They state she is not acting like herself, she is not responding to text messages/phone calls. This RN will relay all info to charge loader and also the SW.
[2023-03-08 16:52] LABS: Bedside Glucose 221 mg/dL (74-106)
[2023-03-08] MEDS: Escitalopram Oxalate 20 MG Tablet PO (18:48)
[2023-03-08 22:26] LABS: Bedside Glucose 253 mg/dL (74-106)
[2023-03-09] MEDS: Potassium Chloride 40 MEQ in Dextrose 5%-Water (1000mL Bag) 1,000 ML 100 MEQ IV (00:55)
[2023-03-09 05:00] VITALS: BP 183/85; PULSE 87; RESP 16; TEMP 36.8; O2SAT 95
[2023-03-09 05:19] VITALS: BMI 25.9
[2023-03-09 05:23] VITALS: BP 183/85; PULSE 87
[2023-03-09] MEDS: Na Biphos/Potassium Phosphate PACKET 1 PACKET PO (05:23)
[2023-03-09] MEDS: 0.9% Saline Lock 10 ML Syringe IV ×2 (05:23→18:44)
[2023-03-09] MEDS: hydrALAZINE 20 MG/ML Vial 5 MG IV (05:23)
[2023-03-09] MEDS: ChlorproMAZINE 25 MG Tablet PO (05:24)
[2023-03-09 06:46] LABS: Absolute Lymphocyte Count 0.87 X10^3/uL (0.83-4.51); Absolute Neutrophil Count 6.1 X10^3/uL (2.0-7.7); Basophil# 0.02 X10^3/uL; Basophil% 0.3 % (0-1); Eosinophil# 0.12 X10^3/uL; Eosinophils% 1.6 % (0-5); Hematocrit 45.4 % (37-47); Hemoglobin 14.7 g/dL (12.0-15.0); Lymphocyte # 0.87 X10^3/ul (0.83-4.51); Lymphocyte % 11.3 % (19-41); Mean Corp Hgb Conc 32.4 g/dL (32-36); Mean Corpuscular Hgb 26.6 pg (27.0-32.0); Mean Corpuscular Volume 82.2 fL (81-99); Monocyte% 6.5 % (0-10); NRBC Flagged by Analyzer 0 % (0-5); Neutrophil # 6.14 X10^3/uL (2.7-7.7); Neutrophil % 79.9 % (47-70); Platelet Count 271 K/mm3 (150-450); RBC Distribution Width CV 15.6 % (11.6-14.6); RBC Distribution Width SD 46.5 fl (35.1-43.9); Red Blood Count 5.52 M/mm3 (4.2-5.4); White Blood Count 7.7 K/mm3 (4.4-11.0)
[2023-03-09] MEDS: Levothyroxine 25 MCG TABLET PO (06:49)
[2023-03-09] MEDS: Insulin Lispro 100 UNIT/ML INSULN.PEN SC ×3 (06:49→16:57)
[2023-03-09 07:09] LABS: Bedside Glucose 222 mg/dL (74-106)
[2023-03-09 07:26] LABS: Anion Gap 9 (5-15); BUN 9 mg/dL (7-18); BUN/Creat Ratio 12.6 RATIO (10-20); Calcium,Total 8.5 mg/dL (8.5-10.1); Chloride 101 mmol/L (98-107); Creatinine, Serum 0.72 mg/dL (0.55-1.02); EST Glomerular Filtration Rate 90 mL/min (>60); Est Glom Filt Rate - Afr Amer 108 mL/min (>60); Estimated Creatinine Clearance 84.84 ml/min; Glucose 238 mg/dL (74-106); Potassium 3.8 mmol/L (3.5-5.1); Sodium Level 134 mmol/L (136-145)
--- NOTE | 2023-03-09 07:47 | PCM.PN.HOSP ---
Reason for Visit Reason for Visit: Diagnoses Type 2 diabetes mellitus with ketoacidosis without coma (03/06/23) Hypokalemia (03/06/23) Intussusception (03/06/23) Subjective Subjective Patient reports feeling better than she did initially, somewhat nauseated at times but overall improving Objective Data Objective Data Vital Signs: Vital Signs Temp Pulse Resp BP Pulse Ox O2 Del Method 98.2 F 87 16 183/85 H 95 Room Air 03/09/23 05:00 03/09/23 05:23 03/09/23 05:00 03/09/23 05:23 03/09/23 05:00 03/09/23 05:00 Oxygen Delivery Method Room Air Weight: 74.9 kg Body Mass Index (BMI) 25.9 Intake & Output: Intake and Output for Last 24 Hours 03/08/23 03/08/23 03/09/23 00:59 23:59 23:59 Intake Total 450 / 450 Output Total Balance 450 / 450 Lab / Micro Data 03/09/23 06:00 03/09/23 06:00 Labs: Laboratory Results - last 24 hr 03/08/23 06:40: WBC 10.2, RBC 5.70 H, Hgb 15.2 H, Hct 47.1 H, MCV 82.6, MCH 26.7 L, MCHC 32.3, RDW Std Deviation 47.4 H, RDW Coeff of Domingo 16.0 H, Plt Count 289, MPV 10.3, Immature Gran % (Auto) 0.300, Neut % (Auto) 83.1 H, Lymph % (Auto) 8.2 L, [place] % (Auto) 6.7, Eos % (Auto) 1.5, Baso % (Auto) 0.2, Absolute Neuts (auto) 8.5 H, Absolute Lymphs (auto) 0.84, Nucleated RBC % 0, Sodium 135 L, Potassium 3.7, Chloride 101, Carbon Dioxide 23.0, Anion Gap 11, BUN 8, Creatinine 0.74, Estim Creat Clear Calc 82.55, Est GFR (MDRD) Af Amer 104, Est GFR (MDRD) Non-Af 86, BUN/Creatinine Ratio 10.8, Glucose 200 H, Calcium 9.0 03/08/23 12:05: POC Glucose 239 H 03/08/23 16:28: POC Glucose 221 H 03/08/23 21:44: POC Glucose 253 H 03/09/23 06:00: WBC 7.7, RBC 5.52 H, Hgb 14.7, Hct 45.4, MCV 82.2, MCH 26.6 L, MCHC 32.4, RDW Std Deviation 46.5 H, RDW Coeff of [place]ingo 15.6 H, Plt Count 271, MPV 10.0, Immature Gran % (Auto) 0.400, Neut % (Auto) 79.9 H, Lymph % (Auto) 11.3 L, [place] % (Auto) 6.5, Eos % (Auto) 1.6, Baso % (Auto) 0.3, Absolute Neuts (auto) 6.1, Absolute Lymphs (auto) 0.87, Nucleated RBC % 0, Sodium 134 L, Potassium 3.8, Chloride 101, Carbon Dioxide 24.0, Anion Gap 9, BUN 9, Creatinine 0.72, Estim Creat Clear Calc 84.84, Est GFR (MDRD) Af Amer 108, Est GFR (MDRD) Non-Af 90, BUN/Creatinine Ratio 12.6, Glucose 238 H, Calcium 8.5 03/09/23 06:46: POC Glucose 222 H Micro: Microbiology 03/06/23 08:49 Nasal Secretion SARS-CoV-2 Antigen (Rapid) - Final Physical Exam Narrative General: Alert, oriented, not acutely distressed HEENT: Atraumatic, normocephalic Eyes: Anicteric, normal conjunctiva, extraocular movements grossly intact Neck: Supple Respiratory: Clear to auscultation bilaterally, normal respiratory effort Cardiovascular: Regular rate and rhythm GI: Soft, nontender, nondistended Extremities: No edema Musculoskeletal: Moving all extremities Neuro: No overt focal neurological deficits Skin: No rashes appreciated Psych: Very constricted affect Assessment & Plan Assessment/Plan (1) DKA (diabetic ketoacidosis): QUALIFIERS: Diabetes mellitus complication detail: without coma Diabetes mellitus type: type 2 Qualified Code(s): E11.10 - Type 2 diabetes mellitus with ketoacidosis without coma (2) Intussusception: (3) Acute hypokalemia: PLAN: Plan 1. DKA most likely due to empagliflozin complicated with metformin with history of diabetes mellitus type 2: Patient is being admitted in ICU. Her glucose in BMP is 172. Lactic acid 2.1. Bicarb 19.0, anion gap 21. Patient has leukocytosis consistent with DKA/inflammatory reaction. Hemoconcentration with hematocrit 53.8% increased from 03/04 labs. ABG 7.3 036/ on room air. Total CO2 19 in ABG. Discussed with the ER physician and advised to continue normal saline bolus for 2 L and then will start on insulin drip low-dose 1 units/h. Patient needs vigorous rehydration before insulin drip. Monitor BMP every 4 hourly. Supportive treatment for nausea and vomiting. Keep patient NPO. Hold oral hypoglycemic agents including metformin, pioglitazone and empagliflozin. 03/07: Anion gap closed x2. BUN/creatinine also improved. Mild hypokalemia K3.4. Mild hypophosphatemia, phosphorus 1.9. Serum magnesium normal. Bicarb 21, anion gap 13. Sodium 137. Continue IV fluid D5W with KCl at 100 mL per hour with scheduled Lantus insulin and sliding scale Humalog insulin. Glucose runs around 148, 167 and 142. A1c pending. 03/08/2023: Awaiting lab work -03/09: A1c 7.9, glargine 10 twice daily with sliding scale, restarting pioglitazone and metformin but will hold empagliflozin given her DKA with minimally elevated glucose as this was likely the culprit. If improving glucose control and patient able to maintain hydration will likely be able to be discharged on this regimen and can potentially be started on GLP-1 or DPP 4 on outpatient basis with goal to wean off insulin 2. Acute intussusception, radiological diagnosis, radiologically reduced: Patient is passing flatus and she had bowel movement yesterday well formed without blood or mucus. She does not have moderate or severe abdominal pain/tenderness or guarding. General surgery Dr. Vanessa saw the patient and we discussed. Nausea and vomiting may be from DKA or possible intussusception. Repeat CT abdomen with oral contrast was done which shows no evidence of intussusception as it looks like reduced. Contrast going in the jejunum to proximal ileum. Normal colon. We will monitor conservatively. I will leave surgical management for Dr. Vanessa. 03/07: Discussed with Dr. Vanessa will start her on a soft diabetic diet 03/08/2023: No intussusception, surgery has signed off -03/09: No further intervention or monitoring needed 3. Hypertensive urgency with essential primary hypertension: Patient blood pressure has been high during ED previous visits. Labetalol IV ordered. 03/07:Patient is on as needed hydralazine IV and insulin glargine and is scheduled losartan 100 mg daily. Second agent carvedilol 12.5 mg ordered. Blood pressure is still systolic in 170s. 03/08/2023: We will start on Norvasc -03/09: Carvedilol increased 4. Hypothyroidism: Patient on levothyroxine 25 mcg daily. If patient is allowed oral will resume it. 03/07: Advised TSH and free T4 as an outpatient as thyroid function test might come altered because of possibility of a euthyroid sick syndrome. 5. Hx mood d/o -03/09: Restarted on her Lexapro, has very constricted affect, will check thyroid function, B12, vitamin D DVT: Lovenox Time spent in the patient's overall evaluation,decision-making process, review of diagnostic data, adjustment of management, discussion with other providers, nursing nursing and ancillary staff involved in patient's care documentation, 36 minutes Charges/Coding Visit Charges Inpatient E&M: 02397 Subs Hosp L2
[2023-03-09 09:15] VITALS: BP 138/53; PULSE 83; RESP 16; TEMP 36.6; O2SAT 95
[2023-03-09] MEDS: Glucerna Shake 120 ML LIQUID PO ×3 (09:24→16:55)
[2023-03-09] MEDS: Pioglitazone Hydrochloride 30 MG Tablet PO (09:27)
[2023-03-09] MEDS: Escitalopram Oxalate 20 MG Tablet PO (09:28)
[2023-03-09] MEDS: Losartan Potassium 100 MG Tablet PO (09:28)
[2023-03-09] MEDS: amLODIPine 10 MG Tablet PO (09:29)
[2023-03-09] MEDS: Carvedilol 25 MG Tablet PO ×2 (09:30→16:56)
[2023-03-09] MEDS: metFORMIN HCl 1,000 MG Tablet 1000 MG PO ×2 (09:30→16:56)
[2023-03-09] MEDS: Enoxaparin 40 MG/0.4 ML Syringe SC (09:31)
[2023-03-09] MEDS: Insulin Glargine-YFGN 100 UNIT/ML Pen 10 UNIT SC (09:32)
[2023-03-09 13:30] LABS: Bedside Glucose 200 mg/dL (74-106)
[2023-03-09 15:55] VITALS: BP 125/52; PULSE 70; RESP 16; TEMP 36.8; O2SAT 95
--- NOTE | 2023-03-09 16:13 | NURSING ---
Pt agreed to get in the shower but wanted to wait another 45 min so she could rest. This RN would not let pt as she has been in bed all day and stinks. This RN assisted pt in getting in shower. PT had discarded her underwear in the bathroom trash. They are soiled with stool and urine. Pt bed linen changed as well.
[2023-03-09 16:55] LABS: Bedside Glucose 167 mg/dL (74-106)
--- NOTE | 2023-03-09 18:00 | CASEMGMT ---
Social Work This food writer apprised by nursing staff that patient's family and a friend had called in expressing concern about patient's emotional health, with concerns about the patient's home environment and general lack of care. This food writer met with patient in room, introducing to self and social work role. This food writer discussed with patient, that this food writer present to check in with patient and see how patient is doing. This food writer expressed that sometimes, when people express concerned about somebody in the hospital social sciences lecturer will check in. This food writer explored with the patient, whether patient believes anybody in patient's life would be worried about the patient. Patient acknowledged in the affirmative. This food writer explored what concerns others might have. Patient reported that others might think patient is depressed. This food writer explored how patient is doing overall. Patient shares having a lot of stress over the last year and her job as a nurse and acknowledges having depressive symptoms to this food writer. Patient identifies stress from work as a big factor, over a prolonged period of time. Patient discussed historical stressors and trauma which seem to have been built up on her over the last few years, and then the stress from work this year has been impacting as well. Patient shared about 6 years ago she went through divorce, there were issues with her home and lost her home and then the patient's mother suddenly. This was all around 2014. 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 2020 COVID hit. And then this year there have been staffing shortages impacting stress levels at work. Patient acknowledges feeling exhausted and at times overwhelmed. Appetite and sleeping has been impacted reports a change in weight since the summer though has had a medication change which could have also impacted this. Patient reports adherence to medication regimen including for her diabetic regimen. Patient denies any suicidal ideation or history of attempts. No history of homicidal ideation or intent. Much supportive listening provided to the patient. Patient does report to be on a medication or at least should be which has been prescribed by the patient's primary care doctor. Patient reports a history of counseling with a non licensed nuclear equipment operator, associated with the patient's quaker. Patient reports has been considering getting back to see this counselor as did find it helpful. Patient discussed that her support system has encouraged the patient to maybe look for a different counselor but patient is not so sure. This food writer agreed to provide patient with some additional resources, so patient can reflect upon who the patient might want to pursue for counseling. Patient was future focused during discussion with the social sciences lecturer. Patient is able to say and identify meaning in her life including quaker, music, and likes to scrapbook. Patient reports to have a support system and that most specifically her direct coworker who is also a nurse and the patient's [id number]. This food writer did discuss with the patient advance directives, and the patient is interested in having her friend/coworker Laquita be a primary power of patent prosecution attorney the patient's [id number] Norma being a secondary power of patent prosecution attorney for healthcare. This food writer educated patient that social work can assist while patient is at the hospital. This food writer suggested that this food writer reach out to 1 of patient's support systems, to check in. Patient did share that was planning to go and stay with the patient's gfjojf-[id number] and patient's brother at discharge and was okay with this food writer speaking with Norma. Patient asked if this food writer could feel patient in about what was discussed. This food writer agreed. Plan: Social work will continue to follow and plan to meet with the patient again on 03/10/2023. -SERA Stevens, HEAT TREAT INSPECTOR *This note was generated with [employer] software. It may contain incorrect words, spelling, and punctuation that were not noted in review of the chart prior to signing*
[2023-03-09] MEDS: Ondansetron 4 MG/2 ML Vial IV (18:44)
[2023-03-09 21:00] VITALS: BP 114/48; PULSE 71; RESP 18; TEMP 36.6; O2SAT 95
[2023-03-09] MEDS: Mirtazapine 15 MG Tablet 7.5 MG PO (22:27)
[2023-03-09 23:35] LABS: Bedside Glucose 135 mg/dL (74-106)
[2023-03-10 03:00] VITALS: BP 135/52; PULSE 87; RESP 18; TEMP 36.8; O2SAT 92
[2023-03-10 05:28] VITALS: BMI 25.7
[2023-03-10] MEDS: Levothyroxine 25 MCG TABLET PO (06:23)
[2023-03-10 06:51] LABS: Bedside Glucose 124 mg/dL (74-106)
[2023-03-10 07:37] LABS: Absolute Lymphocyte Count 1.08 X10^3/uL (0.83-4.51); Absolute Neutrophil Count 4.3 X10^3/uL (2.0-7.7); Basophil# 0.03 X10^3/uL; Basophil% 0.5 % (0-1); Eosinophils% 1.6 % (0-5); Hematocrit 44.5 % (37-47); Hemoglobin 14.1 g/dL (12.0-15.0); Lymphocyte # 1.08 X10^3/ul (0.83-4.51); Lymphocyte % 17.7 % (19-41); Mean Corp Hgb Conc 31.7 g/dL (32-36); Mean Corpuscular Hgb 27.1 pg (27.0-32.0); Mean Corpuscular Volume 85.4 fL (81-99); Mean Platelet Vol. 10.4 fl (6.2-12.0); Monocyte# 0.54 X10^3/uL; Monocyte% 8.9 % (0-10); NRBC Flagged by Analyzer 0 % (0-5); Neutrophil # 4.33 X10^3/uL (2.7-7.7); Platelet Count 306 K/mm3 (150-450); RBC Distribution Width CV 15.9 % (11.6-14.6); RBC Distribution Width SD 48.6 fl (35.1-43.9); Red Blood Count 5.21 M/mm3 (4.2-5.4); White Blood Count 6.1 K/mm3 (4.4-11.0)
[2023-03-10 08:04] LABS: Vitamin B12 357 pg/mL (211-911); Vitamin D,25 Hydroxy 22.9 ng/mL
[2023-03-10 08:14] LABS: Anion Gap 6 (5-15); BUN 20 mg/dL (7-18); BUN/Creat Ratio 18.2 RATIO (10-20); Calcium,Total 8.6 mg/dL (8.5-10.1); Chloride 101 mmol/L (98-107); EST Glomerular Filtration Rate 55 mL/min (>60); Est Glom Filt Rate - Afr Amer 66 mL/min (>60); Estimated Creatinine Clearance 55.53 ml/min; Glucose 127 mg/dL (74-106); Potassium 3.8 mmol/L (3.5-5.1); Sodium Level 134 mmol/L (136-145); T4 Free Direct 0.96 ng/dL (0.76-1.46)
[2023-03-10 09:42] VITALS: BP 148/63; PULSE 86; RESP 18; TEMP 36.7; O2SAT 94
[2023-03-10] MEDS: Escitalopram Oxalate 20 MG Tablet PO (09:44)
[2023-03-10] MEDS: Enoxaparin 40 MG/0.4 ML Syringe SC (09:45)
[2023-03-10] MEDS: amLODIPine 10 MG Tablet PO (09:46)
[2023-03-10] MEDS: Losartan Potassium 100 MG Tablet PO (09:47)
[2023-03-10] MEDS: Glucerna Shake 120 ML LIQUID PO ×3 (09:47→16:28)
[2023-03-10] MEDS: Carvedilol 25 MG Tablet PO ×2 (09:47→16:37)
--- NOTE | 2023-03-10 10:31 | DCINST_ITS ---
Discharge Instructions Diet Discharge Diet: Light diet - advance as tolerated Activity Discharge Activity: Return to Normal Activity Follow Up Care Test Results: Test results from this visit will be discussed in further detail at your follow- up appointment, if applicable. Discharge Plan Admission Admit Date/Time: 03/06/23 12:20 Primary Reason for Your Visit: DKA Attending Provider: Rowena Ratliff Primary Care Provider: Diomedes Gould Chi Consulting Providers: Rowena Ratliff; Amish Rader Instructions Patient Instructions: Diabetes Exercise Starting, Diabetes Fitness Progress, Blood Sugar Check Steps Additional Instructions / Restrictions: DISCHARGE INSTRUCTIONS PLEASE READ *Please take this with you to your next doctors appointment* -Your Jardiance has been discontinued, you will continue pioglitazone and metformin. -You will be discharged on insulin, insulin glargine 10 units twice daily so you are diabetes regimen will be insulin glargine 10 units twice daily, pioglitazone, metformin. Please do not take any other diabetes medications or injections until discussing with your primary care physician. Meant to check your glucose in the morning and at night and log this. If you have glucoses persistently elevated over 160?180 would recommend contacting her primary care physician. If your glucose is 100 or less prior to your long-acting insulin would recommend contacting your physician for further instructions -You will likely need further adjustment of your Synthroid in the future however you indicated this was only recently started, recommend follow-up labs through her primary care physician's office and further adjustment as indicated -Spironolactone has been discontinued -You have been started on Remeron to help with appetite - You have also been started on Norvasc and carvedilol for your blood pressure. Would recommend checking her blood pressure every morning and logging this and taking this with you to her primary care physician's office -Would recommend lab work (BMP) to check your kidney function in 2 to 3 days through your primary care physician's office. Please call their office upon discharge to obtain order for lab work. -Please call your primary care provider's office upon discharge to schedule a hospital follow up within 1 week. -For any concerning signs or symptoms please call 911 or proceed to the nearest emergency department Discharge Orders/Prescriptions Prescriptions: New carvedilol 25 mg Tablet 25 mg PO BIDCM 30 Days Qty: 60 0RF amlodipine 10 mg Tablet 10 mg PO DAILY 30 Days Qty: 30 0RF mirtazapine 15 mg Tablet 7.5 mg PO QHS 30 Days Qty: 15 0RF insulin glargine-yfgn 100 unit/mL (3 mL) Insulin Pen 10 unit subcut BID 30 Days Qty: 6 0RF (DME) pen needle, diabetic [BD Ultra-Fine Short Pen Needle] 31 gauge x 5/16 needle See Rx Instructions .Route Qty: 100 3RF Rx Instructions: Inject long acting insulin twice daily (DME) FreeStyle Test Strip 100 strip miscellaneous BID Qty: 100 0RF Rx Instructions: Check glucose morning and night (DME) lancets 30 gauge misc See Rx Instructions .Route Qty: 100 0RF Rx Instructions: Check glucose morning and night Continued metformin 1,000 MG tablet 1,000 mg PO BIDCM pioglitazone 30 MG tablet 30 mg PO DAILY levothyroxine 25 mcg tablet 25 mcg PO DAILY valsartan 320 mg tablet 320 mg PO DAILY rosuvastatin [Crestor] 20 mg tablet 20 mg PO DAILY Korlym 300 mg tablet 600 mg PO DAILY Jardiance 25 mg tablet 25 mg PO DAILY escitalopram oxalate 20 mg tablet 20 mg PO DAILY Discontinued spironolactone 100 mg tablet 100 mg PO DAILY Referrals / Follow Up: Diomedes Gould Chi, MD [Primary Care Provider] - Within 1 Week Disposition Disposition (needs filled in before D/C Order can be placed): Home, Self Care
--- NOTE | 2023-03-10 10:44 | PCM.DC.SUM ---
Providers Date of Admission: 03/06/23 Date of Discharge: 03/10/23 Primary Care Physician: Dr. Diomedes Gould MD Reason For Visit: DKA WITH ABD PAIN Diagnosis Discharge Diagnosis (1) DKA (diabetic ketoacidosis): Status: Acute Code(s): E11.10 - Type 2 diabetes mellitus with ketoacidosis without coma Qualifiers: Diabetes mellitus complication detail: without coma Diabetes mellitus type: type 2 Qualified Code(s): E11.10 - Type 2 diabetes mellitus with ketoacidosis without coma (2) Intussusception: Status: Acute Code(s): K56.1 - Intussusception (3) Acute hypokalemia: Status: Acute Code(s): E87.6 - Hypokalemia (4) Hypertension: Status: Chronic Code(s): I10 - Essential (primary) hypertension (5) History of diabetes mellitus, type II: Status: Acute Code(s): Z86.39 - Personal history of other endocrine, nutritional and metabolic disease Plan #DKA most likely due to empagliflozin #history of diabetes mellitus type 2 #Acute intussusception, radiological diagnosis, radiologically reduced #Hypertensive urgency with essential primary hypertension #Hypothyroidism: #Hx mood d/o Medications at Discharge Home Medications metformin 1,000 mg tablet 1,000 mg PO BIDCM 06/01/18 pioglitazone 30 mg tablet 30 mg PO DAILY 06/01/18 levothyroxine 25 mcg tablet 25 mcg PO DAILY 03/06/23 mifepristone 300 mg tablet (Korlym) 600 mg PO DAILY 03/06/23 rosuvastatin 20 mg tablet (Crestor) 20 mg PO DAILY 03/06/23 valsartan 320 mg tablet 320 mg PO DAILY 03/06/23 escitalopram oxalate 20 mg tablet 20 mg PO DAILY mood 03/08/23 amlodipine 10 mg tablet 10 mg PO DAILY 30 days #30 tabs 03/10/23 blood sugar diagnostic (FreeStyle Test strips) #100 ea 03/10/23 carvedilol 25 mg tablet 25 mg PO BIDCM 30 days #60 tabs 03/10/23 insulin glargine-yfgn 100 unit/mL (3 mL) subcutaneous pen 10 unit (0.1 mL) subcut BID 30 days #6 mL 03/10/23 lancets 30 gauge #100 ea 03/10/23 mirtazapine 15 mg tablet 7.5 mg (1/2 x 15 mg) PO QHS 30 days #15 tabs 03/10/23 pen needle, diabetic 31 gauge x 5/16 (BD Ultra-Fine Short Pen Needle) #100 ea 03/10/23 Hospital Course Summary of Care Provided Minutes Spent on Discharge: 40 Hospital Course: 57-year-old female history of hypothyroidism, hypertension, type 2 diabetes who presented to [facility] 03/06/2023 with persistent nausea and vomiting and mild abdominal discomfort for several days and she was found to be in DKA most probably due to empagliflozin. DKA resolved and insulin and oral medications adjusted with better control of glucose. Patient also found to have intussusception of the small bowel CT scan which got resolved with repeat CT scan with oral contrast. Patient did have fairly constricted affect however was cooperative with me and answering questions appropriately and clinically improved and was medically appropriate for discharge and patient agreeable to DC home. There were concerns from family regarding home living situation. Discussed with social work after their family discussion and it appears patient has steady employment and is also capable of making and executing plans however home is in a state of disarray. Social work will give information for intensive outpatient counseling prior to discharge. Additionally patient had mirtazapine added to her Lexapro to help with appetite and with mood and can be further uptitrated on an outpatient basis. Given her affect and concerns for caring for self at home explore medical explanations and patient did have elevated TSH of 15 however when speaking with her she reported she has not been on her current dose of Synthroid very long so does not seem to be indicated for increase yet however may need further adjustments moving forward/repeating thyroid studies. Informed patient of this and she verbalized her understanding. Patient was alert and oriented and able to answer questions appropriately, will benefit from further counseling on outpatient basis but do not see acute indication for pink slip and inpatient crisis evaluation and feel this may do more harm than good in the long run for patient. We will also need to follow closely with PCP. On day of discharge reports nausea is better than abdomen is feeling better, still suboptimal appetite but stressed importance of maintaining nutrition and discussed medication that was started to help with appetite. Discharge instructions as follows: -Your Jardiance has been discontinued, you will continue pioglitazone and metformin. -You will be discharged on insulin, insulin glargine 10 units twice daily so you are diabetes regimen will be insulin glargine 10 units twice daily, pioglitazone, metformin. Please do not take any other diabetes medications or injections until discussing with your primary care physician. Meant to check your glucose in the morning and at night and log this. If you have glucoses persistently elevated over 160?180 would recommend contacting her primary care physician. If your glucose is 100 or less prior to your long-acting insulin would recommend contacting your physician for further instructions -You will likely need further adjustment of your Synthroid in the future however you indicated this was only recently started, recommend follow-up labs through her primary care physician's office and further adjustment as indicated -Spironolactone has been discontinued -You have been started on Remeron to help with appetite - You have also been started on Norvasc and carvedilol for your blood pressure. Would recommend checking her blood pressure every morning and logging this and taking this with you to her primary care physician's office -Would recommend lab work (BMP) to check your kidney function in 2 to 3 days through your primary care physician's office. Please call their office upon discharge to obtain order for lab work. -Please call your primary care provider's office upon discharge to schedule a hospital follow up within 1 week. -For any concerning signs or symptoms please call 911 or proceed to the nearest emergency department Physical Exam Narrative General: Alert, oriented, not acutely distressed HEENT: Atraumatic, normocephalic Eyes: Anicteric, normal conjunctiva, extraocular movements grossly intact Neck: Supple Respiratory: Clear to auscultation bilaterally, normal respiratory effort Cardiovascular: Regular rate and rhythm GI: Soft, nontender, nondistended Extremities: No edema Musculoskeletal: Moving all extremities Neuro: No overt focal neurological deficits Skin: No rashes appreciated Psych: constricted affect, slightly more conversational today Weight / BMI Weight Weight: 74.5 kg Body Mass Index (BMI) 25.7 ABG / Lab / Microbiology Data 03/10/23 06:50 03/10/23 06:50 Laboratory: Laboratory Results - last 24 hr 03/09/23 13:08: POC Glucose 200 H 03/09/23 16:36: POC Glucose 167 H 03/09/23 22:14: POC Glucose 135 H 03/10/23 06:25: POC Glucose 124 H 03/10/23 06:50: WBC 6.1, RBC 5.21, Hgb 14.1, Hct 44.5, MCV 85.4, MCH 27.1, MCHC 31.7 L, RDW Std Deviation 48.6 H, RDW Coeff of [place]ingo 15.9 H, Plt Count 306, MPV 10.4, Immature Gran % (Auto) 0.300, Neut % (Auto) 71.0 H, Lymph % (Auto) 17.7 L, [place] % (Auto) 8.9, Eos % (Auto) 1.6, Baso % (Auto) 0.5, Absolute Neuts (auto) 4.3, Absolute Lymphs (auto) 1.08, Nucleated RBC % 0, Sodium 134 L, Potassium 3.8, Chloride 101, Carbon Dioxide 27.0, Anion Gap 6, BUN 20 H, Creatinine 1.10 H, Estim Creat Clear Calc 55.53, Est GFR (MDRD) Af Amer 66, Est GFR (MDRD) Non-Af 55 L, BUN/Creatinine Ratio 18.2, Glucose 127 H, Calcium 8.6, Vitamin B12 357, Vitamin D 25-Hydroxy 22.9, TSH 15.20 H, Free T4 0.96 Microbiology: Microbiology 03/06/23 08:49 Nasal Secretion SARS-CoV-2 Antigen (Rapid) - Final D/C Instructions Discharge Diet: Light diet - advance as tolerated Meaningful Use Info Meaningful Use Diagnoses (Choose all that apply): None applicable Discharge Plan Admission Admit Date/Time: 03/06/23 12:20 Primary Reason for Your Visit: DKA Attending Provider: Rowena Ratliff Primary Care Provider: Diomedes Gould Chi Consulting Providers: Rowena Ratliff; mAish Rader Instructions Patient Instructions: Diabetes Exercise Starting, Diabetes Fitness Progress, Blood Sugar Check Steps Additional Instructions / Restrictions: DISCHARGE INSTRUCTIONS PLEASE READ *Please take this with you to your next doctors appointment* -Your Jardiance has been discontinued, you will continue pioglitazone and metformin. -You will be discharged on insulin, insulin glargine 10 units twice daily so you are diabetes regimen will be insulin glargine 10 units twice daily, pioglitazone, metformin. Please do not take any other diabetes medications or injections until discussing with your primary care physician. Meant to check your glucose in the morning and at night and log this. If you have glucoses persistently elevated over 160?180 would recommend contacting her primary care physician. If your glucose is 100 or less prior to your long-acting insulin would recommend contacting your physician for further instructions -You will likely need further adjustment of your Synthroid in the future however you indicated this was only recently started, recommend follow-up labs through her primary care physician's office and further adjustment as indicated -Spironolactone has been discontinued -You have been started on Remeron to help with appetite - You have also been started on Norvasc and carvedilol for your blood pressure. Would recommend checking her blood pressure every morning and logging this and taking this with you to her primary care physician's office -Would recommend lab work (BMP) to check your kidney function in 2 to 3 days through your primary care physician's office. Please call their office upon discharge to obtain order for lab work. -Please call your primary care provider's office upon discharge to schedule a hospital follow up within 1 week. -For any concerning signs or symptoms please call 911 or proceed to the nearest emergency department Discharge Orders/Prescriptions Prescriptions: New carvedilol 25 mg Tablet 25 mg PO BIDCM 30 Days Qty: 60 0RF amlodipine 10 mg Tablet 10 mg PO DAILY 30 Days Qty: 30 0RF mirtazapine 15 mg Tablet 7.5 mg PO QHS 30 Days Qty: 15 0RF insulin glargine-yfgn 100 unit/mL (3 mL) Insulin Pen 10 unit subcut BID 30 Days Qty: 6 0RF (DME) pen needle, diabetic [BD Ultra-Fine Short Pen Needle] 31 gauge x 5/16 needle See Rx Instructions .Route Qty: 100 3RF Rx Instructions: Inject long acting insulin twice daily (DME) FreeStyle Test Strip 100 strip miscellaneous BID Qty: 100 0RF Rx Instructions: Check glucose morning and night (DME) lancets 30 gauge misc See Rx Instructions .Route Qty: 100 0RF Rx Instructions: Check glucose morning and night Continued metformin 1,000 MG tablet 1,000 mg PO BIDCM pioglitazone 30 MG tablet 30 mg PO DAILY levothyroxine 25 mcg tablet 25 mcg PO DAILY valsartan 320 mg tablet 320 mg PO DAILY rosuvastatin [Crestor] 20 mg tablet 20 mg PO DAILY Korlym 300 mg tablet 600 mg PO DAILY escitalopram oxalate 20 mg tablet 20 mg PO DAILY Discontinued spironolactone 100 mg tablet 100 mg PO DAILY Jardiance 25 mg tablet 25 mg PO DAILY Referrals / Follow Up: Diomedes Gould Chi, MD [Primary Care Provider] - 03/16/23 1:20 pm Disposition Disposition (needs filled in before D/C Order can be placed): Home, Self Care Charges/Coding Visit Charges Inpatient E&M: 50297 Disch Hosp >30min
--- NOTE | 2023-03-10 11:02 | PCM.DC ---
Discharge Instructions Diet Discharge Diet: Light diet - advance as tolerated Follow Up Care Test Results: Test results from this visit will be discussed in further detail at your follow-up appointment, if applicable. Discharge Plan Admission Admit Date/Time: 03/06/23 12:20 Primary Reason for Your Visit: DKA Attending Provider: Rowena Ratliff Primary Care Provider: Diomedes Gould Chi Consulting Providers: Rowena Ratliff; Amish Rader Instructions Patient Instructions: Diabetes Exercise Starting, Diabetes Fitness Progress, Blood Sugar Check Steps Additional Instructions / Restrictions: DISCHARGE INSTRUCTIONS PLEASE READ *Please take this with you to your next doctors appointment* -Your Jardiance has been discontinued, you will continue pioglitazone and metformin. -You will be discharged on insulin, insulin glargine 10 units twice daily so you are diabetes regimen will be insulin glargine 10 units twice daily, pioglitazone, metformin. Please do not take any other diabetes medications or injections until discussing with your primary care physician. Meant to check your glucose in the morning and at night and log this. If you have glucoses persistently elevated over 160?180 would recommend contacting her primary care physician. If your glucose is 100 or less prior to your long-acting insulin would recommend contacting your physician for further instructions -You will likely need further adjustment of your Synthroid in the future however you indicated this was only recently started, recommend follow-up labs through her primary care physician's office and further adjustment as indicated -Spironolactone has been discontinued -You have been started on Remeron to help with appetite - You have also been started on Norvasc and carvedilol for your blood pressure. Would recommend checking her blood pressure every morning and logging this and taking this with you to her primary care physician's office -Would recommend lab work (BMP) to check your kidney function in 2 to 3 days through your primary care physician's office. Please call their office upon discharge to obtain order for lab work. -Please call your primary care provider's office upon discharge to schedule a hospital follow up within 1 week. -For any concerning signs or symptoms please call 911 or proceed to the nearest emergency department Discharge Orders/Prescriptions Prescriptions: New carvedilol 25 mg Tablet 25 mg PO BIDCM 30 Days Qty: 60 0RF amlodipine 10 mg Tablet 10 mg PO DAILY 30 Days Qty: 30 0RF mirtazapine 15 mg Tablet 7.5 mg PO QHS 30 Days Qty: 15 0RF insulin glargine-yfgn 100 unit/mL (3 mL) Insulin Pen 10 unit subcut BID 30 Days Qty: 6 0RF (DME) pen needle, diabetic [BD Ultra-Fine Short Pen Needle] 31 gauge x 5/16 needle See Rx Instructions .Route Qty: 100 3RF Rx Instructions: Inject long acting insulin twice daily (DME) FreeStyle Test Strip 100 strip miscellaneous BID Qty: 100 0RF Rx Instructions: Check glucose morning and night (DME) lancets 30 gauge misc See Rx Instructions .Route Qty: 100 0RF Rx Instructions: Check glucose morning and night Continued metformin 1,000 MG tablet 1,000 mg PO BIDCM pioglitazone 30 MG tablet 30 mg PO DAILY levothyroxine 25 mcg tablet 25 mcg PO DAILY valsartan 320 mg tablet 320 mg PO DAILY rosuvastatin [Crestor] 20 mg tablet 20 mg PO DAILY Korlym 300 mg tablet 600 mg PO DAILY escitalopram oxalate 20 mg tablet 20 mg PO DAILY Discontinued spironolactone 100 mg tablet 100 mg PO DAILY Jardiance 25 mg tablet 25 mg PO DAILY Referrals / Follow Up: Diomedes Gould Chi, MD [Primary Care Provider] - Within 1 Week Disposition Disposition (needs filled in before D/C Order can be placed): Home, Self Care
--- NOTE | 2023-03-10 11:25 | PHA.DC.MC.R ---
Pharmacy [facility] has performed discharge medication reconciliation and counseling for this patient. The patient's discharge medication list was reviewed for discrepancies and discrepancies were resolved. The patient was counseled on the following discharge medications and changes in medications for homegoing were reviewed. The Reason for Use, instructions for use, and potential side effects were reviewed for all new medications. The patient's questions regarding all of their medications were answered. 1. Lantus 10 units SQ daily 2. carvedilol 25 mg PO BID 3. Amlodipine 10 mg PO daily 4. mirtazapine 7.5 mg PO QHS The patient was able to verbally demonstrate an understanding of their discharge medications. The patient was counselled on new medications by accredited pharmacy technician Hunter. Medications at Discharge Home Medications metformin 1,000 mg tablet 1,000 mg PO BIDCM 06/01/18 pioglitazone 30 mg tablet 30 mg PO DAILY 06/01/18 levothyroxine 25 mcg tablet 25 mcg PO DAILY 03/06/23 mifepristone 300 mg tablet (Korlym) 600 mg PO DAILY 03/06/23 rosuvastatin 20 mg tablet (Crestor) 20 mg PO DAILY 03/06/23 valsartan 320 mg tablet 320 mg PO DAILY 03/06/23 escitalopram oxalate 20 mg tablet 20 mg PO DAILY mood 03/08/23 amlodipine 10 mg tablet 10 mg PO DAILY 30 days #30 tabs 03/10/23 blood sugar diagnostic (FreeStyle Test strips) #100 ea 03/10/23 carvedilol 25 mg tablet 25 mg PO BIDCM 30 days #60 tabs 03/10/23 insulin glargine-yfgn 100 unit/mL (3 mL) subcutaneous pen 10 unit (0.1 mL) subcut BID 30 days #6 mL 03/10/23 lancets 30 gauge #100 ea 03/10/23 mirtazapine 15 mg tablet 7.5 mg (1/2 x 15 mg) PO QHS 30 days #15 tabs 03/10/23 pen needle, diabetic 31 gauge x 5/16 (BD Ultra-Fine Short Pen Needle) #100 ea 03/10/23
--- NOTE | 2023-03-10 11:31 | CASEMGMT ---
TC to [facility] pharmacy for cost of pt meds. Spoke with Brittany who states that Free Style lancets and strips were ordered for pt and it needs clarified that pt has this BGM. RN CM into pt room, pt states she does not have this BGM, she has the [employer] brand. Pt kept eyes closed throughout conversation. She states she does not need strips or lancets and she has enough sensors for her Dexcom. Pt states she has given insulin before and denies any issues with this. She denies any homegoing needs. TC back to pharmacy to make aware to not fill the lancets and strips, spoke with Jeff. He states the rest of pt meds are $100.90. Pt does have insurance coverage. He states the insulin will not be in until tomorrow and asked if pt will be sent home with her pen here. Updated pt nurse of this who will send the pen home with pt.
[2023-03-10 13:06] LABS: Bedside Glucose 144 mg/dL (74-106)
--- NOTE | 2023-03-10 14:37 | NURSING ---
THis Nurse assisted pt in ordering her breakfast this morning at 0955. Pt still had untouched lunch sitting on table at 1100 and then at 1200. Cambodian muffin and coffee was what she ordered. I'll eat it. This RN offered soup for lunch and other snacks. Pt refused. I'll eat it Referring to her mohawk muffin. This RN came to round on pt and she is snoring, eyes closed. Appears to be sleeping, no distress. Breakfast is still on her table untouched.
[2023-03-10 14:42] VITALS: BP 106/49; PULSE 73; RESP 16; TEMP 36.3; O2SAT 97
--- NOTE | 2023-03-10 16:00 | CASEMGMT ---
Social Work This commercial loan underwriter met with patient, checking on how patient is doing. Patient appearing tired and reported that did not sleep very well last night. Reviewed outpatient resources and [facility] IOP program. At this point patient wants to talk with family, as family will be assisting while the patient is staying with family. [facility] commercial loan underwriter spoke with patient's [id number] Norma Perdomo ([phone]). Norma shared with this commercial loan underwriter concerned about the patient's living environment. Describes living environments as almost a hoarding condition with dirty dishes all over spoiled food and bugs related to the spoiled food. Reports there is no counter space. Patient is now reportedly sleeping on couch because there are so many things being taken up on the patient's bed. Patient has animals in the home and has not been caring for the animals, who are now having accidents in the home. Norma reports that this is not the first episode of patient's home becoming in such disarray, so not concerned that this is a pattern of behavior. Norma will wondered if there was some type of level of care and where patient could go and be monitored and received support and medication. Explained to Norma that at this point do not believe the patient is at the point of being able to be pink slipped for involuntary admission, and that really any type of mental health intervention would need to be voluntary. This commercial loan underwriter educated Norma to resources being provided to the patient, as well as educated to intensive outpatient level of care. [facility] has this level of care though patient is going to stay at Norma's home at discharge, with which is [facility]. This commercial loan underwriter educated to [facility] intensive outpatient program, which would be closer to Norma's home. This might also allow for some additional privacy for the patient, and being able to separate work and personal life balance. Norma agreed for patient to come and stay there. And will have patient's father and stepmother checking on patient during the day. Provided Norma with the contact information for [facility]'s IOP program. This commercial loan underwriter spoke with patient's hospitalist regarding conversation with the patient's [id number]. At this point not quite enough information to pink slipped the patient. Met with patient and reviewed the concerns presented by Norma. Patient acknowledges these concerns are not anything new to the patient. This commercial loan underwriter reinforced with the patient that in light of this additional information provided by Norma, this commercial loan underwriter would recommend an reinforced that patient follow-up with an outpatient mental health provider. Reinforcing that the patient deserves emotional support and health. Provided information on local outpatient counselors, [facility] IOP and [facility] IOP program. This commercial loan underwriter offered to call for an intake appointment at either IOP program, but patient declined reporting that she can do this on her own. Patient verbally committed to calling the [facility] program. This commercial loan underwriter did offer for the patient for voluntary inpatient admission, to look at medication adjustments and provide more acute intense support for coping. Patient declined to this offer. As patient is reporting understanding of need to take medication, reporting intent to follow-up with outpatient counseling this was not something able to be forced at this time. This commercial loan underwriter reinforced with the patient, that patient needs to take care of self in order to prevent more intense interventions in the future. Patient expressed much appreciation to this commercial loan underwriter for support provided during hospital stay. Plan: Patient will discharge to family, resources provided for outpatient counseling and intensive outpatient programming. Patient states intent to at least follow-up for an IOP assessment. Patient's family has been given the information for the IOP program as well -SERA Stevens, DAVID *This note was generated with Osper dictation software. It may contain incorrect words, spelling, and punctuation that were not noted in review of the chart prior to signing*
[2023-03-10] MEDS: metFORMIN HCl 1,000 MG Tablet 1000 MG PO (16:28)
[2023-03-10 16:38] VITALS: BP 124/51; PULSE 70
[2023-03-10 16:46] LABS: Bedside Glucose 123 mg/dL (74-106)
--- NOTE | 2023-03-10 17:01 | NURSING ---
Pt is finally eatting after this RN stated that I would not leave unless pt ate. Soup, jello and mirela doones given. Pt has ate 3 out of the 4 mirela doones and bites of jello thus far and sips of power aide zero.
--- NOTE | 2023-03-10 17:48 | NURSING ---
pt did eat all 4 mirela doones and two bites of soup. This RN will update DR. Ratliff.
== END 2023-03-10 19:02 | disposition home or self-care (01) | DRG 638 ==
LOC: ED 12:10 → ICU 12:35 → MS3 03-07 16:40
PROVIDERS: Family Medicine; Admitting Provider Internal Medicine; Emergency Provider Emergency Medicine; PCP Family Medicine Geriatric Medicine; Visit Provider Internal Medicine
DX: E11.10 Type 2 diabetes mellitus with ketoacidosis without coma (principal); K56.1 Intussusception; I10 Essential (primary) hypertension; E03.9 Hypothyroidism, unspecified; E86.0 Dehydration; R11.2 Nausea with vomiting, unspecified; E87.6 Hypokalemia; I16.0 Hypertensive urgency; T38.3X5A Adverse effect of insulin and oral hypoglycemic [antidiabetic] drugs, initial encounter; E07.81 Sick-euthyroid syndrome; Z11.52 Encounter for screening for COVID-19; Z79.84 Long term (current) use of oral hypoglycemic drugs; Z79.899 Other long term (current) drug therapy; Z79.890 Hormone replacement therapy
CPT/HCPCS: 36415; 36600; 74176; 74177; 80048; 80053; 81001; 82009; 82306; 82607; 82803; 82962; 83036; 83605; 83690; 83735; 83930; 84100; 84439; 84443; 84703; 85025; 87811; 99284; J7030; Q9967; A4216; J2405

== ENCOUNTER → 2023-03-12 | Outpatient (CLI) | payer OTHER, SELFPAY ==
[2023-03-12 18:02] LABS: Absolute Lymphocyte Count 1.16 X10^3/uL (0.83-4.51); Absolute Neutrophil Count 6.2 X10^3/uL (2.0-7.7); Basophil# 0.03 X10^3/uL; Basophil% 0.4 % (0-1); Eosinophil# 0.07 X10^3/uL; Eosinophils% 0.9 % (0-5); Hematocrit 43.7 % (37-47); Hemoglobin 13.9 g/dL (12.0-15.0); Lymphocyte # 1.16 X10^3/ul (0.83-4.51); Lymphocyte % 14.3 % (19-41); Mean Corp Hgb Conc 31.8 g/dL (32-36); Mean Corpuscular Hgb 27.2 pg (27.0-32.0); Mean Corpuscular Volume 85.5 fL (81-99); Mean Platelet Vol. 9.9 fl (6.2-12.0); Monocyte# 0.63 X10^3/uL; Monocyte% 7.8 % (0-10); NRBC Flagged by Analyzer 0 % (0-5); Neutrophil # 6.16 X10^3/uL (2.7-7.7); Neutrophil % 76.1 % (47-70); Platelet Count 329 K/mm3 (150-450); RBC Distribution Width CV 15.6 % (11.6-14.6); RBC Distribution Width SD 48.1 fl (35.1-43.9); Red Blood Count 5.11 M/mm3 (4.2-5.4); White Blood Count 8.1 K/mm3 (4.4-11.0)
[2023-03-12 18:26] LABS: Vitamin D,25 Hydroxy 26.5 ng/mL
[2023-03-12 18:27] LABS: Hemoglobin A1c 7.6 % (3.8-5.6)
[2023-03-12 18:32] LABS: ALB/GLOB Ratio 0.6 RATIO (0.9-2.4); AST(SGOT) 15 U/L (15-37); Alanine Aminotransfer ALT/SGPT 13 U/L (13-56); Albumin, Serum 2.2 g/dL (3.2-5.0); Alkaline Phosphatase 98 U/L (45-117); Anion Gap 3 (5-15); BUN 25 mg/dL (7-18); BUN/Creat Ratio 20.5 RATIO (10-20); Calcium,Total 8.5 mg/dL (8.5-10.1); Chloride 100 mmol/L (98-107); Cholesterol 143 mg/dL (200); Creatinine, Serum 1.22 mg/dL (0.55-1.02); EST Glomerular Filtration Rate 48 mL/min (>60); Est Glom Filt Rate - Afr Amer 59 mL/min (>60); Glucose 242 mg/dL (74-106); High Density Lipoprotein 21 mg/dL; Potassium 3.5 mmol/L (3.5-5.1); Protein, Total 6.2 g/dL (6.4-8.2); Sodium Level 135 mmol/L (136-145); Triglycerides 266 mg/dL; Very Low Density Lipoprotein 53 mg/dL (5-40)
== END | disposition home or self-care (01) ==
LOC: POLAB3 17:39
PROVIDERS: PCP Family Medicine Geriatric Medicine; Visit Provider Family Medicine Geriatric Medicine
DX: I10 Essential (primary) hypertension (principal)
CPT/HCPCS: 36415; 80053; 80061; 82306; 83036; 84443; 85025